=== PATIENT | male | born 1970 | race African-American/Black ===

== ENCOUNTER 2018-04-11 18:59 | Inpatient (IN) | payer SELFPAY ==
[~2018-04-11] VITALS: Ht 185.4 cm; Wt 58.7 kg
[2018-04-11] MEDS ORDERED: IV NORMAL SALINE 1,000ML 1,000 ML IV ONE ×2 (20:00)
[2018-04-11] MEDS ORDERED: ONDANSETRON PF 4 MG/2 ML VIAL. IV ONE (20:00)
[2018-04-11 20:03] LABS: BASO % 1 % (0-3); EOS % 0 % (0-3); HEMATOCRIT 49.5 % (39.0-53.0); HEMOGLOBIN 16.7 g/dL (13.0-17.5); LYMPH # 1.4 x10^3/uL (1.0-4.8); LYMPH % 19 % (24-48); MEAN CORPUSCULAR HEMOGLOBIN 34 pg (25-35); MEAN CORPUSCULAR HGB CONC 34 g/dL (31-37); MEAN CORPUSCULAR VOLUME 101 fL (79-100); MONO # 0.5 x10^3/uL (0.0-1.1); MONO % 7 % (0-9); NEUT # 5.5 x10^3uL (1.8-7.7); NEUT % 73 % (31-73); PLATELET COUNT 238 x10^3/uL (140-400); RED CELL DISTRIBUTION WIDTH 13.1 % (11.5-14.5); WHITE BLOOD COUNT 7.6 x10^3/uL (4.0-11.0)
--- NOTE | 2018-04-11 20:12 | EKG ---
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
[2018-04-11 20:13] LABS: ALBUMIN 4.4 g/dL (3.4-5.0); ALBUMIN/GLOBULIN RATIO 1.7 (1.0-1.7); CALCIUM 10.2 mg/dL (8.5-10.1); CREATININE 1.1 mg/dL (0.7-1.3); GFR 86.8; MAGNESIUM 2.3 mg/dL (1.8-2.4); POTASSIUM 4.6 mmol/L (3.5-5.1); TOTAL BILIRUBIN 0.2 mg/dL (0.2-1.0)
[2018-04-11] MEDS ORDERED: INSULIN REGULAR 100 UNIT/ML 3ML VIAL. SQ ONE (20:30)
[2018-04-11 21:11] LABS: BILIRUBIN,URINE NEG (NEG); CLARITY,URINE CLEAR; COLOR,URINE YELLOW; GLUCOSE,URINE >=1000 mg/dL (NEG)
[2018-04-11 21:12] LABS: BACTERIA,URINE 0 /HPF (0-FEW); NITRITE,URINE NEG (NEG); RBC,URINE 0 /HPF (0-2); UROBILINOGEN,URINE 0.2 mg/dL (0.2 mg/dL); WBC,URINE OCC /HPF (0-4)
--- NOTE | 2018-04-11 22:23 | PHYS DOC ---
Past History Past Medical History: Diabetes Past Surgical History: No Surgical History Alcohol Use: Heavy Drug Use: None Adult General Chief Complaint Chief Complaint: BLOOD SUGAR PROBLEM HPI HPI 47-year-old male with past medical history of diabetes presents with three-day history of generalized weakness and dizziness. Patient does report increased urinary frequency as well as nausea and vomiting. Patient reports he recently relocated back to [place]. Patient reports he has been taking his metformin but is concerned that his blood sugars are higher than it should be. Denies fever or chills. Denies trauma. Reports currently does not have a PCP. Reports history of ETOH abuse. Denies history of seizures. Review of Systems Review of Systems Constitutional: Denies fever or chills [] Eyes: Denies change in visual acuity, redness, or eye pain [] HENT: Denies nasal congestion or sore throat [] Respiratory: Denies cough or shortness of breath [] Cardiovascular: Denies chest pain or palpitations GI: Denies abdominal pain or diarrhea; Reports nausea and vomiting : Denies dysuria or hematuria [] Musculoskeletal: Denies back pain or joint pain [] Integument: Denies rash or skin lesions [] Neurologic: Denies headache or sensory changes; Reports dizziness and generalized weakness [] Endocrine: Reports polyuria or polydipsia [] Complete systems were reviewed and found to be within normal limits, except as documented in this note. Current Medications Current Medications Current Medications Medications (Trade) Dose Ordered Sig/Sakshi Start Time Stop Time Status Last Admin Dose Admin Insulin Human Regular (HumuLIN R VIAL) 6 unit 1X ONCE 04/11/18 20:30 04/11/18 20:36 DC 04/11/18 21:05 6 UNIT Ondansetron HCl (Zofran) 4 mg 1X ONCE 04/11/18 20:00 04/11/18 20:01 DC 04/11/18 20:27 4 MG Sodium Chloride 1,000 ml @ 1,000 mls/hr 1X ONCE 04/11/18 20:00 04/11/18 20:59 DC 04/11/18 20:00 1,000 MLS/HR Allergies Allergies Allergies Coded Allergies Type Severity Reaction Last Updated Verified Penicillins Allergy Intermediate 04/11/18 Yes Physical Exam Physical Exam Constitutional: Well developed, well nourished, no acute distress, non-toxic appearance. [] HENT: Normocephalic, atraumatic, oropharynx dry Eyes: PERRL, EOMI, conjunctiva normal, no discharge, no nystagmus noted Neck: Normal range of motion, no tenderness, supple, no stridor. [] Cardiovascular: Heart rate regular rhythm, no murmur [] Lungs & Thorax: Bilateral breath sounds clear to auscultation [] Abdomen: Soft, no tenderness Skin: Warm, dry, no erythema, no rash. [] Extremities: No tenderness, ROM intact, no edema. [] Neurologic: Alert and oriented X 3, normal motor function, normal sensory function, no focal deficits noted. [] Psychologic: Affect normal, judgement normal, mood normal. [] Current Patient Data Vital Signs Vital Signs Date Time Temp Pulse Resp B/P (MAP) Pulse Ox O2 Delivery O2 Flow Rate FiO2 04/11/18 20:57 63 18 129/76 (93) 98 Room Air 04/11/18 19:32 98.0 Lab Results Laboratory Tests Test 04/11/18 19:07 04/11/18 19:27 04/11/18 20:05 04/11/18 20:24 Glucose (Fingerstick) 539 mg/dL (70-99) *H White Blood Count 7.6 x10^3/uL (4.0-11.0) Red Blood Count 4.90 x10^6/uL (4.30-5.70) Hemoglobin 16.7 g/dL (13.0-17.5) Hematocrit 49.5 % (39.0-53.0) Mean Corpuscular Volume 101 fL (79-100) H Mean Corpuscular Hemoglobin 34 pg (25-35) Mean Corpuscular Hemoglobin Concent 34 g/dL (31-37) Red Cell Distribution Width 13.1 % (11.5-14.5) Platelet Count 238 x10^3/uL (140-400) Neutrophils (%) (Auto) 73 % (31-73) Lymphocytes (%) (Auto) 19 % (24-48) L Monocytes (%) (Auto) 7 % (0-9) Eosinophils (%) (Auto) 0 % (0-3) Basophils (%) (Auto) 1 % (0-3) Neutrophils # (Auto) 5.5 x10^3uL (1.8-7.7) Lymphocytes # (Auto) 1.4 x10^3/uL (1.0-4.8) Monocytes # (Auto) 0.5 x10^3/uL (0.0-1.1) Eosinophils # (Auto) 0.0 x10^3/uL (0.0-0.7) Basophils # (Auto) 0.0 x10^3/uL (0.0-0.2) Sodium Level 132 mmol/L (136-145) L Potassium Level 4.6 mmol/L (3.5-5.1) Chloride Level 92 mmol/L (98-107) L Carbon Dioxide Level 20 mmol/L (21-32) L Anion Gap 20 (6-14) H Blood Urea Nitrogen 24 mg/dL (8-26) Creatinine 1.1 mg/dL (0.7-1.3) Estimated GFR (Cockcroft-Gault) 86.8 BUN/Creatinine Ratio 22 (6-20) H Glucose Level 552 mg/dL (70-99) *H Calcium Level 10.2 mg/dL (8.5-10.1) H Magnesium Level 2.3 mg/dL (1.8-2.4) Total Bilirubin 0.2 mg/dL (0.2-1.0) Aspartate Amino Transferase (AST) 15 U/L (15-37) Alanine Aminotransferase (ALT) 35 U/L (16-63) Alkaline Phosphatase 74 U/L (46-116) Creatine Kinase 145 U/L (39-308) Creatine Kinase MB (Mass) 1.2 ng/mL (0.0-3.6) Creatine Kinase MB Relative Index 0.8 % (0-4) Troponin I Quantitative < 0.017 ng/mL (0-0.055) Total Protein 7.0 g/dL (6.4-8.2) Albumin 4.4 g/dL (3.4-5.0) Albumin/Globulin Ratio 1.7 (1.0-1.7) Acetone Level Neg (NEG) Ethyl Alcohol Level 29 mg/dL (0-10) H Urine Collection Type Void Urine Color Yellow Urine Clarity Clear Urine pH 5.0 Urine Specific [place] <=1.005 Urine Protein Neg (NEG-TRACE) Urine Glucose (UA) >=1000 mg/dL (NEG) Urine Ketones (Stick) 40 mg/dL (NEG) Urine Blood Neg (NEG) Urine Nitrite Neg (NEG) Urine Bilirubin Neg (NEG) Urine Urobilinogen Dipstick 0.2 mg/dL (0.2 mg/dL) Urine Leukocyte Esterase Neg (NEG) Urine RBC 0 /HPF (0-2) Urine WBC Occ /HPF (0-4) Urine Squamous Epithelial Cells None /LPF Urine Bacteria 0 /HPF (0-FEW) Test 04/11/18 22:11 Glucose (Fingerstick) 329 mg/dL (70-99) H EKG EKG @2007: NSR at 66bpm, LAFB, NO ST elevation Radiology/Procedures Radiology/Procedures [] Course & Med Decision Making Course & Med Decision Making Pertinent Labs and Imaging studies reviewed. (See chart for details) Patient presents with generalized malaise and weakness with associated nausea/ vomiting and polyuria and polydipsia. NIHSS 0. Hx of ETOH abuse. Concern for elevated blood sugar. Accucheck elevated. IVF hydration given. SQ insulin given. Labs obtained and posted to chart. Acetone negative. UA without signs of infection. Symptomatic treatment provided. Given lack of PCP follow-up and likelihood of need for adjustment of diabetic medication, patient requiring admission for further evaluation and treatment. Discussed with Dr. Mcneil (hospitalist) who is in agreement with admission. Discussed findings and plan with patient, who acknowledges understanding and agreement. Dragon Disclaimer Dragon Disclaimer This electronic medical record was generated, in whole or in part, using a voice recognition dictation system. Departure Departure: Impression: Primary Impression: Weakness Additional Impressions: Hyperglycemia Nausea Alcohol abuse Disposition: ADMITTED INPATIENT Admitting Physician: Micki Mcneil Condition: STABLE Referrals: PCP,TAD (PCP) NIHSS - ED NIH Stroke Scale: NIH Stroke Scale Response (Comments) Value Level of Consciousness: 0 Alert/Responsive 0 LOC Questions: 0 Answers both correctly 0 LOC Commands: 0 Performs both tasks 0 Best Gaze: 0 Normal 0 Visual: 0 No visual loss 0 Facial Palsy: 0 Normal, symmetrical 0 Motor - Left Arm 0 No drift 0 Motor - Right Arm 0 No drift 0 Motor - Left Leg 0 No drift 0 Motor: Right Leg 0 No drift 0 Limb Ataxia: 0 Absent 0 Sensory: 0 No loss 0 Best Language: 0 Normal 0 Dysathria: 0 Normal 0 Extinction and Inattention: 0 Normal 0 Total 0 Problem Qualifiers ROYCE NAYLOR DO Apr 11, 2018 22:23
[2018-04-11] MEDS ORDERED: ONDANSETRON PF 4 MG/2 ML VIAL. IV PRN (22:30)
[2018-04-11] MEDS ORDERED: DEXTROSE 50% 25 GM / 50ML DISP.SYRIN. IV PRN (22:30)
[2018-04-11] MEDS ORDERED: ACETAMINOPHEN 325 MG TABLET PO PRN (22:30)
[2018-04-11 23:10] VITALS: BP 128/90
[2018-04-12 06:10] VITALS: BP 117/78
[2018-04-12] MEDS ORDERED: MVI, ADULT NO.4 WITH VIT K 10 ML, FOLIC ACID INJ 1 MG, THIAMINE INJ 100 MG in IV NORMAL... IV ONE ×4 (07:30)
[2018-04-12 07:45] VITALS: BP 112/83
[2018-04-12] MEDS: INSULIN LISPRO 300 UNITS/3 ML INSULN.PEN. SQ SCH ×3 (08:29→17:23)
[2018-04-12] MEDS ORDERED: METF10007 PO (08:54)
[2018-04-12 10:38] VITALS: BP 111/72
[2018-04-12 15:10] VITALS: BP 125/86
[2018-04-12] MEDS: IV NORMAL SALINE 1,000ML 1,000 ML IV SCH (15:13)
--- NOTE | 2018-04-12 15:43 | HP ---
ADMIT DATE: 04/11/2018 HISTORY OF PRESENT ILLNESS: The patient is a 47-year-old -Green[place]ic male patient, who came to the Emergency Room, complaining of weakness, dizziness, and increased urinary frequency as well as nausea and vomiting. He also complained of polydipsia. He was recently relocated back to [place]. He was in [place]. The patient reports that he has been taking his metformin, but he was not taking it on a regular basis. He also drinks 50 ounces of alcohol every other day. He has not had any primary care physician and he said that his glucometer was lost when he moved recently. PAST MEDICAL HISTORY: Significant for type 2 diabetes mellitus, diagnosed about 2-1/2 years ago. He was on glipizide and metformin. He did also complain of blurring of vision, but denied any history of cataracts. Denied any tingling or numbness of his hands or feet. Denied any hypertension or hyperlipidemia. He has lost about 40 pounds, which 20 pounds over the last month. PAST SURGICAL HISTORY: Significant for right hand infection with growth of methicillin-resistant Staphylococcus aureus, treated with antibiotic about 12 or 13 years ago. He has also tooth extraction. ALLERGIES: He has no known drug allergies. MEDICATIONS: HE IS ALLERGIC TO PENICILLIN, although he said he takes amoxicillin without any problem. He is on metformin 1000 mg twice a day. He was also on glipizide before, but he stopped taking it on his own. FAMILY HISTORY: His mother is still alive and has hypertension, hypothyroidism. Father at the age of 68 because of lung cancer. His brother is younger and has had hypertension. SOCIAL HISTORY: He is single, however, has a son. He smokes half a pack a day, drinks 50 ounces of alcohol every other day. Does not use any drugs. 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 REVIEW OF SYSTEMS: He did complain of blurring of vision and has astigmatism, but denied any glaucoma or macular degeneration. Denied any earache, tinnitus or sensorineural deafness. Denied any nosebleeds, stuffy nose or postnasal drip. Denied any sore throat, sore tongue, toothache, hoarseness of voice or difficulty swallowing. Did complain of some nausea and vomiting, but denied any diarrhea or constipation. Denied any hematemesis, melena or hematochezia. Denied any dysuria, frequency or hematuria. Denied any chest pain, shortness of breath, orthopnea, paroxysmal nocturnal dyspnea. Denied any cough, phlegm or hemoptysis. Denied any chills, rigors or fever. Did complain of dizziness and lightheadedness. Mother stated he also complained of weight loss of almost 40 pounds of which 20 pounds weight loss over the last month. He was practically not taking any medication for his diabetes. PHYSICAL EXAMINATION: GENERAL: On arrival to the Emergency Room, he looked pale, cachectic, but no jaundice, cyanosis, or thyromegaly. No jugular venous distension. No lower limb edema. VITAL SIGNS: His heart rate was 64, blood pressure was 129/76, temperature was 98, respiratory rate was 18 and oxygen saturation was 98%. HEAD, EYES, EARS, NOSE AND THROAT: Showed normocephalic and atraumatic. NECK: Supple. HEART: Showed normal first and second heart sounds with no gallop, rub or murmur. CHEST: Clear to auscultation. No crepitation or rhonchi. ABDOMEN: Distended, soft, and nontender. No guarding or rigidity. No organomegaly. Hernial orifice intact. Bowel sounds normal. NEUROLOGIC: He was awake, alert, responding appropriately. Cranial nerves intact. EXTREMITIES: He moves extremities without difficulty. LABORATORY DATA: On admission showed a white cell count of 7600, hemoglobin 16.7, hematocrit 49.5, MCV 101, and platelet count of 238,000. His chemistry showed serum sodium of 132, potassium 4.6, chloride 102, bicarbonate 20, anion gap of 20, BUN 24, creatinine 1.1, estimated GFR was 86 mL per minute. His glucose was 552. His calcium was 10.2 and magnesium was 2.3. Total bilirubin, AST, ALT, alkaline phosphatase were normal. His total protein was 7, albumin was 4.4. His urinalysis showed the urine was yellow, clear with a pH of 5, specific gravity 1.005. The urine was negative for protein with a large amount of glucose, moderate amount of ketones, negative for blood, nitrite and leukocyte esterase. There are no rbc's, no wbc's or no bacteria. His toxic screen was positive for blood alcohol level was 29 mg/dL. IMPRESSION: In summary, this is a 47-year-old -Greenlandic male patient with poorly controlled type 2 diabetes with severe hyperglycemia, polyuria and polydipsia, weight loss about 40 pounds. He has mild dilutional hyponatremia. He has also his hemoglobin and hematocrit was elevated at 16.7 and 49.5, likely due to hemoconcentration. He has also alcoholism and nicotine addiction. PLAN: My plan is to restart him on his Glucophage. 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 FATEMEH MORFIN MD DR: WOODY/kori JOB#: [id number] / [id number]
[2018-04-12] MEDS: metFORMIN XR 500 MG TAB.ER.24H PO SCH (17:16)
[2018-04-12] MEDS: GLIMEPIRIDE 2 MG TABLET PO SCH (17:17)
[2018-04-12 18:49] VITALS: BP 118/75
[2018-04-12] MEDS ORDERED: GLIMEPIRIDE 2 MG TABLET PO SCH (21:00)
[2018-04-12] MEDS ORDERED: metFORMIN XR 500 MG TAB.ER.24H PO SCH (21:00)
[2018-04-12 23:14] VITALS: BP 128/85
[2018-04-13] MEDS: IV NORMAL SALINE 1,000ML 1,000 ML IV SCH ×2 (03:03→11:00)
[2018-04-13 04:27] VITALS: BP 125/85
[2018-04-13 06:05] LABS: CALCIUM 7.8 mg/dL (8.5-10.1); CREATININE 0.7 mg/dL (0.7-1.3); GFR 146.3; POTASSIUM 3.8 mmol/L (3.5-5.1)
[2018-04-13] MEDS: metFORMIN XR 500 MG TAB.ER.24H PO SCH (08:16)
[2018-04-13] MEDS: GLIMEPIRIDE 2 MG TABLET PO SCH (08:17)
[2018-04-13] MEDS: INSULIN LISPRO 300 UNITS/3 ML INSULN.PEN. SQ SCH ×2 (08:24→12:18)
[2018-04-13 11:09] VITALS: BP 116/75
[2018-04-13] MEDS ORDERED: GLIM4TAB PO (15:47)
[2018-04-13 21:12] LABS: HEMOGLOBIN A1C 12.6 % (4.8-5.6)
--- NOTE | 2018-04-13 23:25 | DS ---
DATE OF DISCHARGE: 04/13/2018 HISTORY OF PRESENT ILLNESS: The patient is a 47-year-old -Croatian male patient, who came to the Emergency Room complaining of markedly elevated blood sugar. He also complained of polydipsia, polyuria, polyphagia and weight loss of about 40 pounds. He moved recently from [place] to be with his family here. He was taking metformin, but apparently he has not been taking it on a regular basis. He also drinks 5 cans of beer every other day according to him and smokes heavily. He does have a glucometer that he lost when he moved recently. In any case, his blood sugar was extremely high. When he arrived to our facility, it was 552. He has also dilutional hyponatremia because of hyperglycemia and we did start him back on his Glucophage as well as Amaryl 2 mg twice a day. His blood sugar came down to 200. We have had a lengthy discussion regarding his treatment and he takes the medication religiously. He was seen by our dietitian and he was given literature to read and to know what to drink and what time to drink and he will be discharged home on metformin with the recommendation to arrange for a primary care physician to follow him. PHYSICAL EXAMINATION: GENERAL: When I saw him this afternoon, he looked well and was clearly in no apparent respiratory distress. No pallor, jaundice, cyanosis, or thyromegaly. No jugular venous distension. No lower limb edema. VITAL SIGNS: His heart rate was 63, blood pressure was 116/75, temperature was 98.5, respiratory rate 20 and oxygen saturation was 97%. HEAD, EYES, EARS, NOSE AND THROAT: Showed normocephalic, atraumatic. NECK: Supple. HEART: Showed normal first and second sounds. No gallop, rub or murmur. CHEST: Clear to auscultation. No crepitation or rhonchi. ABDOMEN: Scaphoid, soft, nontender. NEUROLOGIC: He is awake, alert, responding appropriately. Cranial nerves intact. He moves all his extremities without difficulty. He ambulates without assistance or assistive devices. His intake over the last 24 hours was 2300, output was incompletely recorded. LABORATORY DATA: As of this morning showed a serum sodium 135, potassium 3.8, chloride 103, bicarbonate 25, anion gap of 7, BUN 12, creatinine 0.7. Estimated GFR was 146 mL per minute. His glucose was 273. Calcium was 7.8. His TSH was 1.214. DISCHARGE MEDICATIONS: He was discharged home to continue on metformin extended release 1000 mg twice a day and glimepiride 4 mg once a day. FINAL DISCHARGE DIAGNOSES: 1. Poorly controlled type 2 diabetes mellitus. 2. Polydipsia, polyuria, polyphagia, weight loss are all manifestation of poorly controlled diabetes. He has also alcoholism and nicotine dependence, so he was counseled about quitting alcohol and quit smoking. FATEMEH MORFIN MD DR: WOODY/kori JOB#: [id number] / [id number]
== END 2018-04-13 16:04 | disposition home or self-care (01) | DRG 638 ==
LOC: ER 18:59 → 1 SOUTH 22:20
PROVIDERS: ADMIT Internal Medicine; ATTEND Internal Medicine
DX: E11.65 Type 2 diabetes mellitus with hyperglycemia (principal); E87.1 Hypo-osmolality and hyponatremia; F10.20 Alcohol dependence, uncomplicated; E03.9 Hypothyroidism, unspecified; F17.210 Nicotine dependence, cigarettes, uncomplicated; Z79.84 Long term (current) use of oral hypoglycemic drugs; Z80.1 Family history of malignant neoplasm of trachea, bronchus and lung; Z88.0 Allergy status to penicillin; Z82.49 Family history of ischemic heart disease and other diseases of the circulatory system; Z79.899 Other long term (current) drug therapy
CPT/HCPCS: 36415; 80048; 80053; 81001; 82010; 82553; 82947; 83036; 83735; 83930; 84443; 84484; 85025; 87641; 93005; 96372; 96374; G0480; J1815; J2405; 99285-25; J7030

== ENCOUNTER 2018-05-24 17:14 | Inpatient (IN) | payer SELFPAY ==
[~2018-05-24] VITALS: Ht 185.4 cm; Wt 56.7 kg
[~2018-05-24 17:14] MED LIST: GLIM4TAB PO; METF10007 PO
[2018-05-24] MEDS ORDERED: IV NORMAL SALINE 1,000ML 1,000 ML IV ONE ×3 (18:00→19:30)
[2018-05-24 18:08] LABS: BASO % 0 % (0-3); EOS % 0 % (0-3); HEMATOCRIT 49.7 % (39.0-53.0); HEMOGLOBIN 16.4 g/dL (13.0-17.5); LYMPH % 11 % (24-48); MEAN CORPUSCULAR HEMOGLOBIN 34 pg (25-35); MEAN CORPUSCULAR HGB CONC 33 g/dL (31-37); MEAN CORPUSCULAR VOLUME 104 fL (79-100); MONO # 0.5 x10^3/uL (0.0-1.1); MONO % 5 % (0-9); NEUT # 7.7 x10^3uL (1.8-7.7); NEUT % 83 % (31-73); PLATELET COUNT 279 x10^3/uL (140-400); RED BLOOD COUNT 4.79 x10^6/uL (4.30-5.70); RED CELL DISTRIBUTION WIDTH 13.2 % (11.5-14.5); WHITE BLOOD COUNT 9.3 x10^3/uL (4.0-11.0)
--- NOTE | 2018-05-24 18:14 | EKG ---
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
[2018-05-24] MEDS ORDERED: ONDANSETRON PF 4 MG/2 ML VIAL. IV ONE (18:15)
[2018-05-24 18:31] LABS: ALBUMIN 3.7 g/dL (3.4-5.0); ALBUMIN/GLOBULIN RATIO 1.2 (1.0-1.7); CALCIUM 9.3 mg/dL (8.5-10.1); CREATININE 1.4 mg/dL (0.7-1.3); GFR 65.4; POTASSIUM 5.9 mmol/L (3.5-5.1); TOTAL BILIRUBIN 0.5 mg/dL (0.2-1.0); TOTAL PROTEIN 6.8 g/dL (6.4-8.2)
[2018-05-24] MEDS ORDERED: INSULIN LISPRO 300 UNITS/3 ML INSULN.PEN. SQ ONE (19:30)
[2018-05-24] MEDS ORDERED: ONDANSETRON PF 4 MG/2 ML VIAL. IV PRN (19:45)
[2018-05-24] MEDS ORDERED: INSULIN REGULAR VIAL 150 UNIT in 0.9 % SODIUM CHLORIDE 150ML 150 ML IV PRN (19:45)
[2018-05-24 19:47] LABS: BACTERIA,URINE 0 /HPF (0-FEW); BILIRUBIN,URINE NEG (NEG); CLARITY,URINE CLEAR; COLOR,URINE STRAW; GLUCOSE,URINE >=1000 mg/dL (NEG); NITRITE,URINE NEG (NEG); RBC,URINE 0 /HPF (0-2); UROBILINOGEN,URINE 0.2 mg/dL (0.2 mg/dL); WBC,URINE RARE /HPF (0-4)
[2018-05-24 20:45] VITALS: BP 104/79
[2018-05-24 22:00] VITALS: BP 102/80
[2018-05-24] MEDS: IV NORMAL SALINE 1,000ML 1,000 ML IV SCH (22:07)
--- NOTE | 2018-05-24 22:19 | ED.ADGEN ---
Past History Past Medical History: Diabetes Past Surgical History: No Surgical History Alcohol Use: Heavy Drug Use: None Adult General Chief Complaint Chief Complaint Nausea and vomiting, abdominal pain HPI HPI Patient is a 48-year-old -Ang[place] male with history of adult onset non-- insulin dependent diabetes who presents with intermittent abdominal pain with nausea vomiting diarrhea for the past month with increased daily nausea and vomiting for the past 3 days. Patient reports dizziness lightheadedness, polyuria polydipsia and approximately 25 pound weight loss over the past 3 months. Patient is currently taking 1000 mg of metformin twice daily. He is not on insulin. He does not have a primary care physician and does not seek routine healthcare other than occasional ER visit for medication referral. Denies recent illness. Denies chest pain, palpitations, shortness of breath. This report feeling dizzy and lightheaded. No fever chills, sweats. Epigastric pain after vomiting. No hematemesis coffee-ground emesis. No other acute symptoms or complaints. Initial blood sugars greater than 600 [] Review of Systems Review of Systems ROS as per hpi All other systems were reviewed and found to be within normal limits, except as documented in this note. Current Medications Current Medications Current Medications Medications (Trade) Dose Ordered Sig/Sakshi Start Time Stop Time Status Last Admin Dose Admin Ondansetron HCl (Zofran) 4 mg 1X ONCE 05/24/18 18:15 05/24/18 18:16 DC 05/24/18 18:04 4 MG Sodium Chloride 1,000 ml @ 1,000 mls/hr 1X ONCE 05/24/18 18:15 05/24/18 19:14 DC 05/24/18 18:17 1,000 MLS/HR Allergies Allergies Allergies Coded Allergies Type Severity Reaction Last Updated Verified Penicillins Allergy Intermediate 04/11/18 Yes I S O L A T I O N *CONTACT* Allergy Unknown 04/12/18 Yes Physical Exam Physical Exam Constitutional: Well developed, well nourished, no acute distress, non-toxic appearance. [] HENT: Normocephalic, atraumatic, bilateral external ears normal, oropharynx moist, no oral exudates, nose normal. [] Eyes: PERRLA, EOMI, conjunctiva normal. [] Neck: Normal range of motion, no tenderness. [] Cardiovascular:Heart rate regular rhythm, no murmur [] Lungs & Thorax: Bilateral breath sounds clear to auscultation. [] Abdomen: Bowel sounds normal, soft, no tenderness. [] Skin: Warm, dry. [] Back: No tenderness. [] Extremities: No tenderness, no edema. [] Neurologic: Alert and oriented X 3, normal motor function, normal sensory function, no focal deficits noted. [] Psychologic: Affect normal, judgement normal, mood normal. [] Current Patient Data Vital Signs Vital Signs Date Time Temp Pulse Resp B/P (MAP) Pulse Ox O2 Delivery O2 Flow Rate FiO2 05/24/18 18:20 80 18 118/70 (86) 99 Room Air 05/24/18 17:25 98.2 Lab Results Laboratory Tests Test 05/24/18 17:50 05/24/18 17:51 White Blood Count 9.3 x10^3/uL (4.0-11.0) Red Blood Count 4.79 x10^6/uL (4.30-5.70) Hemoglobin 16.4 g/dL (13.0-17.5) Hematocrit 49.7 % (39.0-53.0) Mean Corpuscular Volume 104 fL (79-100) H Mean Corpuscular Hemoglobin 34 pg (25-35) Mean Corpuscular Hemoglobin Concent 33 g/dL (31-37) Red Cell Distribution Width 13.2 % (11.5-14.5) Platelet Count 279 x10^3/uL (140-400) Neutrophils (%) (Auto) 83 % (31-73) H Lymphocytes (%) (Auto) 11 % (24-48) L Monocytes (%) (Auto) 5 % (0-9) Eosinophils (%) (Auto) 0 % (0-3) Basophils (%) (Auto) 0 % (0-3) Neutrophils # (Auto) 7.7 x10^3uL (1.8-7.7) Lymphocytes # (Auto) 1.0 x10^3/uL (1.0-4.8) Monocytes # (Auto) 0.5 x10^3/uL (0.0-1.1) Eosinophils # (Auto) 0.0 x10^3/uL (0.0-0.7) Basophils # (Auto) 0.0 x10^3/uL (0.0-0.2) Sodium Level 116 mmol/L (136-145) *L Potassium Level 5.9 mmol/L (3.5-5.1) H Chloride Level 79 mmol/L (98-107) L Carbon Dioxide Level 20 mmol/L (21-32) L Anion Gap 17 (6-14) H Blood Urea Nitrogen 28 mg/dL (8-26) H Creatinine 1.4 mg/dL (0.7-1.3) H Estimated GFR (Cockcroft-Gault) 65.4 BUN/Creatinine Ratio 20 (6-20) Glucose Level 846 mg/dL (70-99) *H Calcium Level 9.3 mg/dL (8.5-10.1) Total Bilirubin 0.5 mg/dL (0.2-1.0) Aspartate Amino Transferase (AST) 16 U/L (15-37) Alanine Aminotransferase (ALT) 35 U/L (16-63) Alkaline Phosphatase 84 U/L (46-116) Total Protein 6.8 g/dL (6.4-8.2) Albumin 3.7 g/dL (3.4-5.0) Albumin/Globulin Ratio 1.2 (1.0-1.7) Lipase 536 U/L (73-393) H Ethyl Alcohol Level < 10 mg/dL (0-10) Troponin I Quantitative < 0.017 ng/mL (0-0.055) EKG EKG [] Radiology/Procedures Radiology/Procedures [EKG: Reviewed Chest x-ray: No acute cardiopulmonary disease on initial ED review.] Course & Med Decision Making Course & Med Decision Making Pertinent Labs and Imaging studies reviewed. (See chart for details) [Blood sugar greater than 800, potassium 5.9. Patient given repeat fluid bolus and subcutaneous insulin in the emergency department with improvement in blood sugar. Acetone positive, ABG not suggestive of DKA. Patient was placed on insulin drip and admitted to the ICU. Dr. Mcneil to admit. Courtesy bridge orders provided.] Final Impression Final Impression [1. Hyperglycemia 2. Hyperkalemia ] Dragon Disclaimer Dragon Disclaimer This electronic medical record was generated, in whole or in part, using a voice recognition dictation system. ROVERTO CHARLTON DO May 24, 2018 22:19
[2018-05-24 22:20] LABS: BGAS PH 7.33 (7.35-7.46)
[2018-05-24 23:00] VITALS: BP 93/67
[2018-05-24 23:59] VITALS: BP 94/58
[2018-05-25] VITALS (9 sets, daily range): BP systolic 89–108; BP diastolic 58–73
--- NOTE | 2018-05-25 00:46 | RAD ---
AP portable chest radiograph 05/24/2018 Clinical History: Chest pain. An AP erect portable digital radiograph of the chest was obtained. No previous studies are available for comparison. The cardiac silhouette is normal in size. Atherosclerotic calcification of the thoracic aorta is seen. The thoracic aorta is minimally tortuous. No acute pulmonary infiltrate is noted. No pneumothorax or pleural effusion is seen. The osseous structures are grossly intact. IMPRESSION: No acute abnormality is seen. Electronically signed by: George Ann MD (05/25/2018 12:43 AM) [facility]
[2018-05-25] MEDS: IV NORMAL SALINE 1,000ML 1,000 ML IV SCH ×4 (03:31→15:38)
[2018-05-25 06:42] LABS: HEMATOCRIT 35.5 % (39.0-53.0); HEMOGLOBIN 12.3 g/dL (13.0-17.5); RED BLOOD COUNT 3.56 x10^6/uL (4.30-5.70); RED CELL DISTRIBUTION WIDTH 12.8 % (11.5-14.5); WHITE BLOOD COUNT 7.1 x10^3/uL (4.0-11.0)
[2018-05-25 06:53] LABS: CALCIUM 7.2 mg/dL (8.5-10.1); CREATININE 0.7 mg/dL (0.7-1.3); GFR 145.6; POTASSIUM 3.5 mmol/L (3.5-5.1)
[2018-05-25] MEDS: metFORMIN 500 MG TABLET PO SCH ×2 (08:54→18:36)
[2018-05-25] MEDS ORDERED: GLIMEPIRIDE 2 MG TABLET PO SCH (09:00)
--- NOTE | 2018-05-25 18:25 | SSS ---
ADMIT DATE: 05/24/2018 HISTORY OF PRESENT ILLNESS: The patient is a 48-year-old male patient who came to the Emergency Room complaining of nausea, vomiting, and abdominal pain. He was diagnosed recently with adult-onset type 2 diabetes. He has been having nausea, vomiting, and diarrhea for the last month that increased daily, but has increased and worsened over the last 3 days. The patient reported dizziness, lightheadedness, polyuria, polydipsia, and approximately 25-pound weight loss over the last 3 months. On his last admission, we started him on metformin twice a day as well as Amaryl 4 mg. He was supposed to get a primary care physician and follow with the [facility], but he did not do that and he basically came in with markedly elevated blood sugar of 846 with severe dilutional hyponatremia of 116, although his anion gap was only 17. He has also slightly deranged kidney function. He was mildly acidotic with pH of 7.33, pCO2 of 37, and bicarbonate of 19. His urinalysis showed large amount of glucose and ketones, was basically treated with IV fluid and admitted to the ICU on insulin drip and he did actually very well on arrival. PHYSICAL EXAMINATION: VITAL SIGNS: His heart rate was 89, blood pressure was 118/70, temperature of 98.2, respiratory rate was 18, and oxygen saturation was 99%. HEAD, EYES, EARS, NOSE, THROAT: Showed normocephalic, atraumatic. NECK: Supple. HEART: Showed normal first and second heart sounds with no gallop, rub, or murmur. CHEST: Clear to auscultation. No crepitation or rhonchi. ABDOMEN: Distended, soft, nontender. No guarding or rigidity. No organomegaly. Hernial orifice intact. Bowel sounds normal. NEUROLOGIC: He was awake, alert, responding appropriately. Cranial nerves intact. EXTREMITIES: He moved extremities without difficulty, ambulates without assistance or assistive devices. LABORATORY DATA: On arrival showed white cell count of 9300, hemoglobin 16, hematocrit 49, MCV 104, and platelet count 279,000 with normal manual differential. His chemistry showed serum sodium 116, potassium 5.9, chloride 79, bicarbonate 20, anion gap of 17, BUN 28, creatinine 1.4, estimated GFR was 65 mL per minute. His glucose was 846, calcium was 9.3. Total bilirubin, AST, ALT, alkaline phosphatase were normal. Total protein was 6.8, albumin 3.7. Serum lipase was 536. His blood gases showed a pH of 7.33 and a pCO2 of 37, pO2 of 85, bicarbonate 19, and oxygen saturation was 96% on FiO2 of 21%. His urinalysis showed the urine was straw colored, clear with pH of 5, specific gravity 1.005. The urine protein was negative. There was large amount of glucose; large amount of ketones; negative for blood, nitrite, and leukocyte esterase. There are no RBCs, no WBCs, and no bacteria. His toxic screen was essentially negative. He was treated with IV fluid and insulin drip. His lab work has normalized by the time I saw him in the afternoon. His serum sodium is up to 154, potassium of 3.5, chloride 101, bicarbonate 27, anion gap of 6, BUN 15, creatinine 0.7, estimated GFR was 145 mL per minute, his glucose 135, and calcium was 7.2. His white cell count was 7000, hemoglobin 12, hematocrit 36, MCV 100, and platelet count 231,000. ASSESSMENT AND PLAN: The patient will be discharged to continue his current medication with clear instruction that he has to go himself to submit an application to [facility] so that he can start on insulin and is also to look for a primary care physician to adjust his insulin and other diabetic medications. FINAL DISCHARGE DIAGNOSES: Nonketotic hyperosmolar hyperglycemia; type 2 diabetes; dilutional hyponatremia; acute kidney injury, resolved. FATEMEH MORFIN MD DR: WOODY/kori JOB#: [id number] / [id number]
[2018-05-26 00:09] LABS: HEMOGLOBIN A1C >15.5 % (4.8-5.6)
== END 2018-05-25 18:50 | disposition home or self-care (01) | DRG 682 ==
LOC: ER 17:14 → ICU 18:30
PROVIDERS: ADMIT Internal Medicine; ATTEND Internal Medicine
DX: N17.9 Acute kidney failure, unspecified (principal); E11.00 Type 2 diabetes mellitus with hyperosmolarity without nonketotic hyperglycemic-hyperosmolar coma (NKHHC); E87.1 Hypo-osmolality and hyponatremia; E87.2 Acidosis; Z79.4 Long term (current) use of insulin; E87.5 Hyperkalemia; Z79.84 Long term (current) use of oral hypoglycemic drugs; Z79.899 Other long term (current) drug therapy; Z88.0 Allergy status to penicillin
CPT/HCPCS: 36415; 36600; 71045; 80048; 80053; 81001; 82010; 82803; 82947; 83036; 83690; 84100; 84484; 85025; 85027; 87641; 93005; 99406; G0480; J1815; J2405; J7030

== ENCOUNTER 2020-01-18 09:33 | Emergency (ER) | payer MEDICAID ==
[~2020-01-18] VITALS: Ht 182.9 cm; Wt 60.0 kg
[2020-01-18 09:47] VITALS: BP 143/91
--- NOTE | 2020-01-18 09:58 | PHYS DOC ---
Past History Past Medical History: Cancer, Diabetes Past Surgical History: Other Additional Past Surgical Histo: RIGHT KIDNEY REMOVAL, RIGHT HAND SURGERY Alcohol Use: Rarely Drug Use: None General Adult EDM: Chief Complaint: FOOT INJURY PAIN HPI: HPI: 49-year-old male presents with concern for foreign bodies in his left foot. He believes he might have been there for 3 weeks. He was working in the garden got into some [employer] thorns. He had shoes on, but he thinks some of this thorn stuck down into the shoes and then pushed into his skin. There are 2 areas where he feels like there is still something under the skin. It causes him some discomfort. Denies fever chills. Review of Systems: Review of Systems: Constitutional: Denies fever or chills Eyes: Denies change in visual acuity HENT: Denies nasal congestion or sore throat Respiratory: Denies cough or shortness of breath Cardiovascular: Denies chest pain or edema GI: Denies abdominal pain, nausea, vomiting, bloody stools or diarrhea : Denies dysuria Musculoskeletal: Left foot pain Integument: Denies rash Neurologic: Denies headache, focal weakness or sensory changes Endocrine: Denies polyuria or polydipsia Lymphatic: Denies swollen glands Psychiatric: Denies depression or anxiety Heart Score: Risk Factors: Risk Factors: DM, Current or recent (<one month) smoker, HTN, HLP, family history of CAD, obesity. Risk Scores: Score 0 - 3: 2.5% MACE over next 6 weeks - Discharge Home Score 4 - 6: 20.3% MACE over next 6 weeks - Admit for Clinical Observation Score 7 - 10: 72.7% MACE over next 6 weeks - Early Invasive Strategies Allergies: Allergies: Allergies Coded Allergies Type Severity Reaction Last Updated Verified Penicillins Allergy Intermediate 04/11/18 Yes I S O L A T I O N *CONTACT* Allergy Unknown 04/12/18 Yes Physical Exam: PE: Constitutional: Well developed, well nourished, no acute distress, non-toxic appearance. [] HENT: Normocephalic, atraumatic, bilateral external ears normal, oropharynx moist, no oral exudates, nose normal. [] Eyes: PERRLA, EOMI, conjunctiva normal, no discharge. [] Neck: Normal range of motion, no tenderness, supple, no stridor. [] Cardiovascular:Heart rate regular rhythm, no murmur [] Lungs & Thorax: Bilateral breath sounds clear to auscultation [] Abdomen: Bowel sounds normal, soft, no tenderness, no masses, no pulsatile masses. [] Skin: 2 small superficial areas on the anterior surface of the left foot that could be over shallow foreign body [] Back: No tenderness, no CVA tenderness. [] Extremities: No tenderness, no cyanosis, no clubbing, ROM intact, no edema. [] Neurologic: Alert and oriented X 3, normal motor function, normal sensory function, no focal deficits noted. [] Psychologic: Affect normal, judgement normal, mood normal. [] Current Patient Data: Vital Signs: Vital Signs Date Time Temp Pulse Resp B/P (MAP) Pulse Ox O2 Delivery O2 Flow Rate FiO2 01/18/20 09:47 98.2 95 18 143/91 (108) 96 Room Air EKG: EKG: [] Radiology/Procedures: Radiology/Procedures: [] Impressions: AP and lateral views of the left foot. INDICATION: Possible foreign body. FINDINGS: No fracture subluxation dislocation. No radiopaque foreign body is seen in the foot. Midfoot is well aligned. No significant degenerative change. Electronically signed by: Bibiana Zuluaga MD (01/18/2020 10:08 AM) [id number] DICTATED AND SIGNED BY: BIBIANA ZULUAGA MD DATE: 01/18/20 1008 CC: ROVERTO PHELAN DO; PCP,NO ~ Course & Med Decision Making: Course & Med Decision Making Pertinent Labs and Imaging studies reviewed. (See chart for details) There is no obvious foreign body of the left foot. There are 2 very small areas of superficial skin that are palpable where the patient seemed to be com plaining. Not sure if these are just small calcifications or if they are very small splinters under the skin. There is no surrounding erythema or warmth. There are not obvious foreign bodies. I am reluctant to go digging in the plantar surface of the foot, especially since he is diabetic. I believe the best thing to do is to leave this as is. I do not believe the small areas could be leading to the numbness that he is discussing. This may be development of neuropathy due to his diabetes. He is stable for discharge at this time. [] Dragon Disclaimer: Dragon Disclaimer: This electronic medical record was generated, in whole or in part, using a voice recognition dictation system. Departure Departure: Impression: Primary Impression: Left foot pain Disposition: 01 HOME/RESIDENCE PRIOR TO ADM Condition: STABLE Referrals: PCP,NO (PCP) Patient Instructions: Diabetic Neuropathy Justification of Admission: Justification of Admission: Justification of Admission Dx: N/A ROVERTO PHELAN DO Jan 18, 2020 09:58
--- NOTE | 2020-01-18 10:11 | RAD ---
AP and lateral views of the left foot. INDICATION: Possible foreign body. FINDINGS: No fracture subluxation dislocation. No radiopaque foreign body is seen in the foot. Midfoot is well aligned. No significant degenerative change. Electronically signed by: Landon Sloan MD (01/18/2020 10:08 AM) [id number]
== END 2020-01-18 10:32 | disposition home or self-care (01) ==
LOC: ER 09:33
DX: M79.672 Pain in left foot (principal); E11.9 Type 2 diabetes mellitus without complications; Z88.0 Allergy status to penicillin; Z88.8 Allergy status to other drugs, medicaments and biological substances
CPT/HCPCS: 73620; 99283

== ENCOUNTER 2020-03-28 07:00 | Inpatient (IN) | payer MEDICAID ==
[2020-03-28] VITALS (10 sets, daily range): BP systolic 136–159; BP diastolic 50–111
[~2020-03-28] VITALS: Ht 182.9 cm; Wt 56.1 kg
[2020-03-28 07:44] LABS: BGAS PH 7.15 (7.35-7.46)
[2020-03-28] MEDS ORDERED: INSULIN REGULAR 100 UNIT/ML 3ML VIAL. IV ONE (07:45)
[2020-03-28] MEDS ORDERED: IV NORMAL SALINE 1,000ML 1,000 ML IV ONE ×3 (07:45→09:15)
--- NOTE | 2020-03-28 08:08 | EKG ---
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
[2020-03-28 08:36] LABS: BASO # 0.1 x10^3/uL (0.0-0.2); BASO % 1 % (0-3); EOS % 0 % (0-3); HEMATOCRIT 52.5 % (39.0-53.0); LYMPH # 1.9 x10^3/uL (1.0-4.8); LYMPH % 10 % (24-48); MEAN CORPUSCULAR HEMOGLOBIN 35 pg (25-35); MEAN CORPUSCULAR HGB CONC 31 g/dL (31-37); MEAN CORPUSCULAR VOLUME 114 fL (79-100); MONO # 0.7 x10^3/uL (0.0-1.1); MONO % 4 % (0-9); NEUT # 16.2 x10^3uL (1.8-7.7); NEUT % 85 % (31-73); PLATELET COUNT 316 x10^3/uL (140-400); RED BLOOD COUNT 4.61 x10^6/uL (4.30-5.70); RED CELL DISTRIBUTION WIDTH 15.2 % (11.5-14.5)
--- NOTE | 2020-03-28 08:44 | RAD ---
Examination: CHEST AP ONLY History: Reason: soa / Comparison: None. Findings: AP portable upright frontal view of the chest was obtained. The cardiomediastinal silhouette is normal. Left midthoracic to lower thoracic level nodular density is present measuring up to 0.86 cm diameter. This may represent nipple shadow. No infiltrate. There is no pneumothorax. No pleural effusion is appreciated. No acute bone abnormality. IMPRESSION: No infiltrates. Nodular density in the left mid to lower thoracic level. Further evaluation with chest x-ray exam with nipple markers. Alternatively, CT may be performed. Electronically signed by: Kulwinder Brewer MD (03/28/2020 8:41 AM) [id number]
[2020-03-28 09:04] LABS: BACTERIA,URINE 0 /HPF (0-FEW); BILIRUBIN,URINE NEG (NEG); CLARITY,URINE CLEAR; COLOR,URINE YELLOW; GLUCOSE,URINE 500 mg/dL (NEG); NITRITE,URINE NEG (NEG); RBC,URINE 0 /HPF (0-2); UROBILINOGEN,URINE 0.2 mg/dL (0.2 mg/dL); WBC,URINE OCC /HPF (0-4)
[2020-03-28 09:05] LABS: SQUAMOUS EPITHELIAL CELL,UR OCC /LPF
[2020-03-28 09:09] LABS: CALCIUM 10.4 mg/dL (8.5-10.1); CREATININE 2.5 mg/dL (0.7-1.3); GFR 33.4; MAGNESIUM 2.6 mg/dL (1.8-2.4); TOTAL BILIRUBIN 0.7 mg/dL (0.2-1.0); TOTAL PROTEIN 7.9 g/dL (6.4-8.2)
[2020-03-28] MEDS ORDERED: IV NORMAL SALINE 1,000ML 1,000 ML IV SCH (09:16)
[2020-03-28 09:18] LABS: % LYMPHS 15 % (24-48); % MONOS 6 % (0-10); % SEGS 79 % (35-66)
[2020-03-28 09:19] LABS: PLT ESTIMATE ADEQUATE (ADEQUATE)
[2020-03-28] MEDS: ONDANSETRON PF 4 MG/2 ML VIAL. IVP PRN ×3 (09:28→20:48)
[2020-03-28] MEDS ORDERED: INSULIN REGULAR VIAL 100 UNIT in IV NORMAL SALINE 100ML 100 ML IV ONE (09:30)
--- NOTE | 2020-03-28 10:15 | NUR ---
The patient, JAMEY LOPEZ, 49 y/o, M admitted by MOISES YUAN MD, was given written information regarding hospital policies, unit procedures and contact persons. Valuables were checked and left with pt. Pt brought by EMS and ED staff to room 113. pt is ICU status. A&Ox4, insulin gtt not started by ED. Will start on floor. pt complains of stomach pain/cramping and is states he is very cold. Pt actively vomiting on arrival to unit. Orders given previously by DR YUAN and will follow as ordered (see previous note). ERASMO Nolen RN
--- NOTE | 2020-03-28 10:30 | NUR ---
PER DR YUAN, STARTING INSULIN GTT AT 10UNIT/HR, CMP Q2HRS, AND NS @100ML/HR. DEEPALI RAMÍREZ
--- NOTE | 2020-03-28 11:19 | NUR ---
per glucostabilizer, starting dose for BS of 1085 is 20.5unit/hr. Awaiting for stat BMP for current glucose
[2020-03-28] MEDS: MORPHINE SULFATE 4 MG/ML DISP.SYRIN. IV PRN ×4 (11:33→20:20)
[2020-03-28 11:40] LABS: CALCIUM 7.8 mg/dL (8.5-10.1); CREATININE 1.9 mg/dL (0.7-1.3); GFR 45.8; POTASSIUM 3.6 mmol/L (3.5-5.1)
--- NOTE | 2020-03-28 11:42 | HP ---
ADMIT DATE: 03/28/2020 ADMISSION HISTORY AND PHYSICAL ATTENDING PHYSICIAN: Dr. Yuan. CHIEF COMPLAINT: Nausea and vomiting. HISTORY OF PRESENT ILLNESS: The patient is a 49-year-old gentleman, type 2 diabetic who has been sick for the last 4 days. He was brought to the ER. He is profoundly dehydrated. He had a blood sugar on admission of 1085. He has a carbon dioxide of 6, anion gap is 40. He is admitted with DKA. He has had vomiting. He has had some regular insulin and fluids several liters in the unit. He is still quite symptomatic. Blood pressure had been adequate at 143 mmHg, pulse is 95. He is afebrile. He is a smoker, but his oxygen saturations are 100%. He is hyperventilating a bit to blow off his carbon dioxide. The patient is admitted then for DKA. He has not had DKA in the past. PAST MEDICAL HISTORY: Significant for type 2 diabetes. He is a smoker, details are very sketchy. He is disabled and not working. MEDICATIONS: His medicines are reviewed. Prior to coming to the hospital, he was not on insulin. He was taking metformin and glimepiride. ALLERGIES: HE HAS ALLERGIES TO PENICILLIN AND CONTRAST DYES. SOCIAL HISTORY: He is a smoker. No alcohol use. FAMILY HISTORY: Father in the 70s of lung cancer. Mom is still alive. REVIEW OF SYSTEMS: Significant for the nausea, vomiting 4 days. No fevers. No COVID exposure. He does not drink any significant alcohol. All other systems reviewed and turned to be negative. PHYSICAL EXAMINATION: GENERAL: When I saw him, this is a pleasant, thin gentleman. INITIAL VITAL SIGNS: Showed a blood pressure of 145/109, pulse 100 and regular, temperature 98.0 degrees Fahrenheit. HEENT: Head is without trauma. Pupils are reactive. Sclerae nonicteric. Oropharynx clear. NECK: Supple, no bruits identified. LUNGS: Shallow respirations. CARDIOVASCULAR: Showed regular heart tones. No gallops. Peripheral pulses are palpable and full. ABDOMEN: Minimal guarding, soft. Hypoactive bowel sounds. No masses palpated. EXTREMITIES: Showed no cyanosis or edema. NEUROLOGIC FINDINGS: Focally intact. SKIN: Cool. LABORATORY STUDIES: As noted. Admission blood sugar was 1085 mg/dL. The carbon dioxide was 6, anion gap is 40, potassium 6.0 due to acidosis. Has pseudohyponatremia with a sodium of 124 mEq, which is normal for correction. Her lipase was 598. Hemoglobin 16.0 grams with a white count of 19,000. Chest x-ray showed a nodular density in the left thoracic level. No infiltrates identified. ASSESSMENT: 1. A 49-year-old gentleman with nausea and vomiting with associated diabetic ketoacidosis. 2. Profound dehydration. 3. Significant nausea and abdominal pain. PLAN: 1. Admit to the inpatient unit. 2. Telemetry monitoring. 3. IV hydration. 4. Insulin drip for now. 5. Keep n.p.o. 6. Pain relief. 7. Nausea control. MOISES YUAN MD DR: LARISA/kori JOB#: [id number] / [id number]
--- NOTE | 2020-03-28 12:38 | PHYS DOC ---
Past History Past Medical History: Cancer, Diabetes Past Surgical History: Other Additional Past Surgical Histo: RIGHT KIDNEY REMOVAL, RIGHT HAND SURGERY Alcohol Use: None Drug Use: None General Adult EDM: Chief Complaint: SHORTNESS OF BREATH HPI: HPI: Patient is a 49-year-old male who presented to ER with 4-day history of nausea, vomiting, feeling weak and tired. Patient also complained of trouble breathing, nonproductive cough. Patient did feel weak and dehydrated, history of diabetes, patient is a very poor historian. He denies any abdominal pain. He feels thirsty all the time he wants some water. Patient denies being exposed to anybody who tested positive for COVID-19. Patient denies any diarrhea. Review of Systems: Review of Systems: Constitutional: Denies fever or chills Eyes: Denies change in visual acuity HENT: Denies nasal congestion or sore throat Respiratory: Positive for cough and trouble breathing. Cardiovascular: Denies chest pain or edema GI: Denies abdominal pain, positive for nausea vomiting, no diarrhea. : Denies dysuria Musculoskeletal: Denies back pain or joint pain Integument: Denies rash Neurologic: Denies headache, focal weakness or sensory changes Endocrine: Positive for polyuria or polydipsia Lymphatic: Denies swollen glands Psychiatric: Denies depression or anxiety Heart Score: Risk Factors: Risk Factors: DM, Current or recent (<one month) smoker, HTN, HLP, family history of CAD, obesity. Risk Scores: Score 0 - 3: 2.5% MACE over next 6 weeks - Discharge Home Score 4 - 6: 20.3% MACE over next 6 weeks - Admit for Clinical Observation Score 7 - 10: 72.7% MACE over next 6 weeks - Early Invasive Strategies Current Medications: Current Meds: Laboratory Tests Test 03/28/20 07:35 03/28/20 08:00 03/28/20 08:30 03/28/20 11:20 Blood Gas pH 7.15 Blood Gas PCO2 8 mmHg Blood Gas PO2 148 mmHg Blood Gas HCO3 3 mmol/L Arterial Bld O2 Saturation (Calc) 99 % FiO2 21 % White Blood Count 19.0 x10^3/uL Red Blood Count 4.61 x10^6/uL Hemoglobin 16.0 g/dL Hematocrit 52.5 % Mean Corpuscular Volume 114 fL Mean Corpuscular Hemoglobin 35 pg Mean Corpuscular Hemoglobin Concent 31 g/dL Red Cell Distribution Width 15.2 % Platelet Count 316 x10^3/uL Neutrophils (%) (Auto) 85 % Lymphocytes (%) (Auto) 10 % Monocytes (%) (Auto) 4 % Eosinophils (%) (Auto) 0 % Basophils (%) (Auto) 1 % Neutrophils # (Auto) 16.2 x10^3uL Lymphocytes # (Auto) 1.9 x10^3/uL Monocytes # (Auto) 0.7 x10^3/uL Eosinophils # (Auto) 0.0 x10^3/uL Basophils # (Auto) 0.1 x10^3/uL Segmented Neutrophils % 79 % Lymphocytes % 15 % Monocytes % 6 % Platelet Estimate Adequate Macrocytosis Mod Prothrombin Time 10.0 SEC Prothromb Time International Ratio 1.0 Activated Partial Thromboplast Time 23 SEC Sodium Level 124 mmol/L 132 mmol/L Potassium Level 6.0 mmol/L 3.6 mmol/L Chloride Level 78 mmol/L 93 mmol/L Carbon Dioxide Level 6 mmol/L 7 mmol/L Anion Gap 40 32 Blood Urea Nitrogen 36 mg/dL 32 mg/dL Creatinine 2.5 mg/dL 1.9 mg/dL Estimated GFR (Cockcroft-Gault) 33.4 45.8 BUN/Creatinine Ratio 14 Glucose Level 1085 mg/dL 789 mg/dL Calcium Level 10.4 mg/dL 7.8 mg/dL Magnesium Level 2.6 mg/dL Total Bilirubin 0.7 mg/dL Aspartate Amino Transf (AST/SGOT) 95 U/L Alanine Aminotransferase (ALT/SGPT) 216 U/L Alkaline Phosphatase 166 U/L Troponin I Quantitative < 0.017 ng/mL CE-Obn-N-Type Natriuretic Peptide 86 pg/mL Total Protein 7.9 g/dL Albumin 4.0 g/dL Albumin/Globulin Ratio 1.0 Lipase 598 U/L Acetone Level Sm pos Urine Collection Type Unknown Urine Color Yellow Urine Clarity Clear Urine pH 5.0 Urine Specific Cardale 1.015 Urine Protein Neg Urine Glucose (UA) 500 mg/dL Urine Ketones (Stick) >=160 mg/dL Urine Blood Neg Urine Nitrite Neg Urine Bilirubin Neg Urine Urobilinogen Dipstick 0.2 mg/dL Urine Leukocyte Esterase Neg Urine RBC 0 /HPF Urine WBC Occ /HPF Urine Squamous Epithelial Cells Occ /LPF Urine Bacteria 0 /HPF Test 10/2/20 13:17 03/28/20 13:50 03/28/20 14:24 03/28/20 16:35 Glucose (Fingerstick) 485 mg/dL 265 mg/dL 125 mg/dL Sodium Level 138 mmol/L Potassium Level 2.9 mmol/L Chloride Level 101 mmol/L Carbon Dioxide Level 8 mmol/L Anion Gap 29 Blood Urea Nitrogen 27 mg/dL Creatinine 1.8 mg/dL Estimated GFR (Cockcroft-Gault) 48.8 Glucose Level 399 mg/dL Calcium Level 7.6 mg/dL Current Medications Medications (Trade) Dose Ordered Sig/Sakshi Route PRN Reason Start Time Stop Time Status Last Admin Dose Admin Sodium Chloride 1,000 ml @ 1,000 mls/hr 1X ONCE IV 03/28/20 07:45 03/28/20 08:44 DC 03/28/20 07:52 Insulin Human Regular (HumuLIN R VIAL) 10 unit 1X ONCE IV 03/28/20 07:45 03/28/20 07:46 DC 03/28/20 07:53 Sodium Chloride 1,000 ml @ 1,000 mls/hr 1X ONCE IV 03/28/20 07:45 03/28/20 08:44 DC 03/28/20 07:52 Sodium Chloride 1,000 ml @ 1,000 mls/hr 1X ONCE IV 03/28/20 09:15 03/28/20 10:14 DC 03/28/20 10:38 Sodium Chloride 1,000 ml @ 100 mls/hr Q10H IV 03/28/20 09:16 03/28/20 14:31 DC 03/28/20 12:31 Current Medications Medications (Trade) Dose Ordered Sig/Sakshi Start Time Stop Time Status Last Admin Dose Admin Insulin Human Regular (HumuLIN R VIAL) 10 unit 1X ONCE 03/28/20 07:45 03/28/20 07:46 DC 03/28/20 07:53 10 UNIT Sodium Chloride 1,000 ml @ 100 mls/hr Q10H 03/28/20 09:16 03/29/20 09:15 03/28/20 12:31 100 MLS/HR Allergies: Allergies: Allergies Coded Allergies Type Severity Reaction Last Updated Verified Penicillins Allergy Intermediate 04/11/18 Yes I S O L A T I O N *CONTACT* Allergy Unknown 04/12/18 Yes Physical Exam: PE: Constitutional: Well developed, appeared dehydrated, mild acute distress, non- toxic appearance. [] HENT: Normocephalic, atraumatic, bilateral external ears normal, oropharynx is very dried, no oral exudates, nose normal. [] Eyes: PERRLA, EOMI, conjunctiva normal, no discharge. [] Neck: Normal range of motion, no tenderness, supple, no stridor. [] Cardiovascular:Heart rate regular rhythm, no murmur [] Lungs & Thorax: Bilateral breath sounds clear to auscultation [] Abdomen: Bowel sounds normal, soft, no tenderness, no masses, no pulsatile masses. [] Skin: Warm, dry, no erythema, no rash. [] Back: No tenderness, no CVA tenderness. [] Extremities: No tenderness, no cyanosis, no clubbing, ROM intact, no edema. [] Neurologic: Alert and oriented X 3, normal motor function, normal sensory function, no focal deficits noted. [] Psychologic: Affect normal, judgement normal, mood normal. [] Current Patient Data: Labs: Laboratory Tests Test 03/28/20 07:35 03/28/20 08:00 03/28/20 08:30 03/28/20 11:20 Blood pH 7.15 (7.35-7.46) *L Blood Gas PCO2 8 mmHg (35-46) *L Blood Gas PO2 148 mmHg (80-100) H Blood Gas HCO3 3 mmol/L (21-28) L Arterial Bld O2 Saturation (Calc) 99 % (92-99) FiO2 21 % White Blood Count 19.0 x10^3/uL (4.0-11.0) H Red Blood Count 4.61 x10^6/uL (4.30-5.70) Hemoglobin 16.0 g/dL (13.0-17.5) Hematocrit 52.5 % (39.0-53.0) Mean Corpuscular Volume 114 fL (79-100) H Mean Corpuscular Hemoglobin 35 pg (25-35) Mean Corpuscular Hemoglobin Concent 31 g/dL (31-37) Red Cell Distribution Width 15.2 % (11.5-14.5) H Platelet Count 316 x10^3/uL (140-400) Neutrophils (%) (Auto) 85 % (31-73) H Lymphocytes (%) (Auto) 10 % (24-48) L Monocytes (%) (Auto) 4 % (0-9) Eosinophils (%) (Auto) 0 % (0-3) Basophils (%) (Auto) 1 % (0-3) Neutrophils # (Auto) 16.2 x10^3uL (1.8-7.7) H Lymphocytes # (Auto) 1.9 x10^3/uL (1.0-4.8) Monocytes # (Auto) 0.7 x10^3/uL (0.0-1.1) Eosinophils # (Auto) 0.0 x10^3/uL (0.0-0.7) Basophils # (Auto) 0.1 x10^3/uL (0.0-0.2) Segmented Neutrophils % 79 % (35-66) H Lymphocytes % 15 % (24-48) L Monocytes % 6 % (0-10) Platelet Estimate Adequate (ADEQUATE) Macrocytosis Mod Prothrombin Time 10.0 SEC (9.4-11.4) Prothrombin Time INR 1.0 (0.9-1.1) Activated Partial Thromboplast Time 23 SEC (23-33) Sodium Level 124 mmol/L (136-145) L 132 mmol/L (136-145) L Potassium Level 6.0 mmol/L (3.5-5.1) H 3.6 mmol/L (3.5-5.1) # Chloride Level 78 mmol/L (98-107) L 93 mmol/L (98-107) L Carbon Dioxide Level 6 mmol/L (21-32) *L 7 mmol/L (21-32) *L Anion Gap 40 (6-14) H 32 (6-14) H Blood Urea Nitrogen 36 mg/dL (8-26) H 32 mg/dL (8-26) H Creatinine 2.5 mg/dL (0.7-1.3) H 1.9 mg/dL (0.7-1.3) H Estimated GFR (Cockcroft-Gault) 33.4 45.8 BUN/Creatinine Ratio 14 (6-20) Glucose Level 1085 mg/dL (70-99) *H 789 mg/dL (70-99) *H Calcium Level 10.4 mg/dL (8.5-10.1) H 7.8 mg/dL (8.5-10.1) #L Magnesium Level 2.6 mg/dL (1.8-2.4) H Total Bilirubin 0.7 mg/dL (0.2-1.0) Aspartate Amino Transferase (AST) 95 U/L (15-37) H Alanine Aminotransferase (ALT) 216 U/L (16-63) H Alkaline Phosphatase 166 U/L (46-116) H Troponin I Quantitative < 0.017 ng/mL (0-0.055) BO-Esq-X-Type Natriuretic Peptide 86 pg/mL (0-124) Total Protein 7.9 g/dL (6.4-8.2) Albumin 4.0 g/dL (3.4-5.0) Albumin/Globulin Ratio 1.0 (1.0-1.7) Lipase 598 U/L (73-393) H Acetone Level Sm pos (NEG) Urine Collection Type Unknown Urine Color Yellow Urine Clarity Clear Urine pH 5.0 Urine Specific Cardale 1.015 Urine Protein Neg (NEG-TRACE) Urine Glucose (UA) 500 mg/dL (NEG) Urine Ketones (Stick) >=160 mg/dL (NEG) Urine Blood Neg (NEG) Urine Nitrite Neg (NEG) Urine Bilirubin Neg (NEG) Urine Urobilinogen Dipstick 0.2 mg/dL (0.2 mg/dL) Urine Leukocyte Esterase Neg (NEG) Urine RBC 0 /HPF (0-2) Urine WBC Occ /HPF (0-4) Urine Squamous Epithelial Cells Occ /LPF Urine Bacteria 0 /HPF (0-FEW) Vital Signs: Vital Signs Date Time Temp Pulse Resp B/P (MAP) Pulse Ox O2 Delivery O2 Flow Rate FiO2 03/28/20 11:33 18 100 Room Air 03/28/20 10:38 95 143/50 (81) 03/28/20 07:37 98.0 EKG: EKG: EKG was done at 716, heart rate 97 bpm, sinus rhythm, no ST segment elevation. Radiology/Procedures: Radiology/Procedures: [][address] [address] IMAGING REPORT Signed PATIENT: JAMEY LOPEZ ACCOUNT: [id number] : 1970 LOCATION: ER AGE: 49 SEX: M EXAM STATUS: REG ER ORD. PHYSICIAN: LUMA THOMAS DO REASON: soa PROCEDURE: CHEST AP ONLY Examination: CHEST AP ONLY History: Reason: soa / Comparison: None. Findings: AP portable upright frontal view of the chest was obtained. The cardiomediastinal silhouette is normal. Left midthoracic to lower thoracic level nodular density is present measuring up to 0.86 cm diameter. This may represent nipple shadow. No infiltrate. There is no pneumothorax. No pleural effusion is appreciated. No acute bone abnormality. IMPRESSION: No infiltrates. Nodular density in the left mid to lower thoracic level. Further evaluation with chest x-ray exam with nipple markers. Alternatively, CT may be performed. Electronically signed by: Kulwinder Rey MD (03/28/2020 8:41 AM) [id number] DICTATED AND SIGNED BY: KULWINDER REY MD DATE: 03/28/20 0841 CC: PCP,TAD; LUMA THOMAS DO ~ Course & Med Decision Making: Course & Med Decision Making Pertinent Labs and Imaging studies reviewed. (See chart for details) Patient is a 49-year-old male with history of diabetes presented to ER with nausea vomiting, feeling weak and dehydrated. Patient was found to have hyperglycemic, in DKA. Patient was given IV fluid, IV insulin in ER. Discussed with Dr. YUAN who agrees TO admit the patient. Critical care time was [45 ] minutes exclusive of procedures. Dragon Disclaimer: Dragon Disclaimer: This electronic medical record was generated, in whole or in part, using a voice recognition dictation system. Departure Departure: Impression: Primary Impression: DKA (diabetic ketoacidoses) Additional Impression: Dehydration Disposition: ADMITTED INPATIENT Admitting Physician: Edouard Yuan Condition: IMPROVED Referrals: PCPTAD (PCP) LUMA THOMAS DO Mar 28, 2020 12:38
--- NOTE | 2020-03-28 13:40 | HP ---
ADMIT DATE: 03/28/2020 ADDENDUM The patient was unable to give much history when I first saw him. Later in the morning, he told us that he has had a previous nephrectomy. He has one kidney. 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 The etiology is still unclear. In any event, I have monitored his chemistries, his creatinine on admission was 2.5 mg/dL. I do not know what his baseline is. Repeated, it was down to 1.9 mg percent. 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 MOISES YAUN MD DR: LARISA/kori JOB#: [id number] / [id number]
[2020-03-28 14:09] LABS: CALCIUM 7.6 mg/dL (8.5-10.1); CREATININE 1.8 mg/dL (0.7-1.3); GFR 48.8
[2020-03-28 14:14] LABS: POTASSIUM 2.9 mmol/L (3.5-5.1)
--- NOTE | 2020-03-28 14:43 | NUR ---
NSG NOTE; CRITICAL RESULTS OF K+ 2.[address] YUAN CALLED AND ORDERED TO ADJUST INSULIN DRIP RATE TO 6 UNITS/HR AND DC FOLLOWING GLUCOSTABILIZER. FURTHER NEW ORDERS INCLUDE CHANGING BMP TO Q12H STARTING AT 1800, ACCU CHECKS Q2 HR, AND NS W/ 40 KCL AT 100 ML/HR. DR YUAN STATED THAT HE WILL ADJUST ORDERS NEEDED AND FOR US NOT TO FOLLOW THE DKA PROTOCOL.
[2020-03-28] MEDS: POTASSIUM CL 40MEQ IN 0.9%NACL 1,000 ML IV SCH (15:40)
--- NOTE | 2020-03-28 16:05 | NUR ---
PT MOVED TO ICU FROM [facility]
[2020-03-28] MEDS ORDERED: DEXTROSE 50% 25 GM / 50ML DISP.SYRIN. IV PRN (16:45)
--- NOTE | 2020-03-28 16:45 | NUR ---
CALLED DR YUAN REGARDING BLOOD SUGAR OF 125. INFORMED HIM OF PATIENT STATING "MY BLOOD SUGAR NORMALLY RUNS IN THE 500'S BUT I CAN BRING IT DOWN TO THE 200'S AND BE OKAY BUT UNDER 200 I FEEL TOO WEAK".. DR YUAN ORDERED FOLLOWS: D/C INSULIN DRIP, SLIDING SCALE INSULIN AT THE HIGHEST LEVEL, Q4 ACCUCHECKS, AND ADVANCE DIET TO CLEAR LIQUID IF TOLERATED AND ANTICIPATING BMP DRAW AT 1800 AND IN THE MORNING. ORDERS RECEIVED. WILL CONTINUE TO MONITOR. DEEPALI RAMÍREZ
[2020-03-28] MEDS ORDERED: INSULIN LISPRO 300 UNITS/3 ML VIAL. SQ SCH (17:00)
[2020-03-28] MEDS ORDERED: GABA-586 PO (17:02)
[2020-03-28] MEDS ORDERED: INSU100V38 SQ (17:03)
[2020-03-28 20:12] LABS: CALCIUM 9.1 mg/dL (8.5-10.1); CREATININE 1.5 mg/dL (0.7-1.3); GFR 60.2; POTASSIUM 5.1 mmol/L (3.5-5.1)
[2020-03-28] MEDS: INSULIN LISPRO 300 UNITS/3 ML VIAL. SQ SCH (20:50)
[2020-03-29] VITALS (22 sets, daily range): BP systolic 106–163; BP diastolic 63–113
[2020-03-29] MEDS: POTASSIUM CL 40MEQ IN 0.9%NACL 1,000 ML IV SCH ×3 (00:04→19:39)
[2020-03-29] MEDS: MORPHINE SULFATE 4 MG/ML DISP.SYRIN. IV PRN ×3 (03:09→21:48)
[2020-03-29] MEDS: INSULIN LISPRO 300 UNITS/3 ML VIAL. SQ SCH (06:29)
[2020-03-29] MEDS ORDERED: LIDO:MAALOX:BENADRYL 1:1:1 180 ML BOTTLE. PO ONE (09:15)
[2020-03-29] MEDS ORDERED: DEXTROSE 50% 25 GM / 50ML DISP.SYRIN. IV PRN ×2 (09:30→17:30)
[2020-03-29] MEDS ORDERED: INSULIN REGULAR VIAL 100 UNIT in IV NORMAL SALINE 100ML 100 ML IV PRN (09:30)
[2020-03-29] MEDS: PANTOPRAZOLE IV 40 MG VIAL. IVP SCH (09:30)
[2020-03-29] MEDS: INSULIN REGULAR VIAL 100 UNIT in IV NORMAL SALINE 100ML 100 ML IV PRN (10:02)
[2020-03-29 10:16] LABS: CALCIUM 8.7 mg/dL (8.5-10.1); CREATININE 1.9 mg/dL (0.7-1.3); GFR 45.8; POTASSIUM 4.9 mmol/L (3.5-5.1)
--- NOTE | 2020-03-29 12:16 | PN ---
DATE: 03/29/2020 ATTENDING PHYSICIAN: Dr. Yuan SUBJECTIVE: Nausea and vomiting has improved. He is not hungry, but he still has indigestion symptoms. He is much more alert and rehydrated. Yesterday, he was very obtunded. OBJECTIVE FINDINGS: VITAL SIGNS: Blood pressure today is 135/86 mmHg, pulse 89 and regular. He is afebrile and oxygen saturation 97% on room air. HEENT: Head is without trauma. Pupils are reactive. Sclerae nonicteric. Oropharynx is clear. NECK: Supple, no bruits. LUNGS: Otherwise clear. CARDIOVASCULAR: Showed regular heart tones. No gallops. Peripheral pulses are palpable and full. ABDOMEN: Soft, scaphoid, nontender. Hypoactive bowel sounds. EXTREMITIES: Without edema. NEUROLOGIC: Focally intact. Speech fluent. PERTINENT LABORATORY STUDIES: Potassium is 5.1 mEq per day. The sodium has been corrected up to 136 mEq. Creatinine is improved down to 1.5 mg percent on unilateral kidney. The carbon dioxide is 18 with an anion gap of 19. ASSESSMENT: 1. A 49-year-old gentleman, diabetic with diabetic ketoacidosis. 2. Uncontrolled blood sugar. 3. Dehydration. 4. Acute on chronic renal failure. The patient has unilateral kidney. PLAN: 1. He will still need an insulin drip for the next 24 hours to bring his sugars down and is slowly creeping up. I had a reading this morning of 459. 2. Clear liquid diet. 3. Add proton pump inhibitor. 4. Continue IV hydration. 5. Serial chemistries twice a day. 6. Tomorrow, we will advance his diet and switch him to q.i.d. Accu-Cheks, preferably with 3 shots of regular before each meal and a shot of Lantus at bedtime. MOISES YUAN MD DR: LARISA/kori JOB#: [id number] / [id number]
[2020-03-29] MEDS: CARVEDILOL 12.5 MG TABLET PO SCH ×2 (12:30→17:00)
[2020-03-29] MEDS: GABAPENTIN 300 MG CAPSULE. PO SCH ×2 (12:30→19:39)
[2020-03-29] MEDS: LIDO:MAALOX:BENADRYL 1:1:1 180 ML BOTTLE. PO PRN (19:40)
[2020-03-29 21:57] LABS: CALCIUM 8.8 mg/dL (8.5-10.1); CREATININE 1.4 mg/dL (0.7-1.3); GFR 65.2; POTASSIUM 4.7 mmol/L (3.5-5.1)
[2020-03-30] VITALS (11 sets, daily range): BP systolic 101–136; BP diastolic 68–95
[2020-03-30] MEDS: LIDO:MAALOX:BENADRYL 1:1:1 180 ML BOTTLE. PO PRN ×3 (04:00→21:15)
[2020-03-30] MEDS: POTASSIUM CL 40MEQ IN 0.9%NACL 1,000 ML IV SCH (06:11)
--- NOTE | 2020-03-30 06:31 | NUR ---
Pt slept well throughout the night, required one dose of Morphine per EMAR, and required 2 doses of GI cocktail. Pt resting comfortably.
[2020-03-30 07:40] LABS: CALCIUM 8.8 mg/dL (8.5-10.1); CREATININE 1.4 mg/dL (0.7-1.3); GFR 65.2; POTASSIUM 5.5 mmol/L (3.5-5.1)
[2020-03-30] MEDS ORDERED: INSULIN LISPRO 300 UNITS/3 ML VIAL. SQ SCH (08:00)
[2020-03-30] MEDS: PANTOPRAZOLE IV 40 MG VIAL. IVP SCH (08:47)
[2020-03-30] MEDS: CARVEDILOL 12.5 MG TABLET PO SCH ×2 (08:47→17:56)
[2020-03-30] MEDS: GABAPENTIN 300 MG CAPSULE. PO SCH ×2 (08:48→21:15)
[2020-03-30] MEDS: INSULIN REGULAR VIAL 100 UNIT in IV NORMAL SALINE 100ML 100 ML IV PRN (08:48)
--- NOTE | 2020-03-30 09:36 | PN ---
DATE: 03/30/2020 ATTENDING PHYSICIAN: Dr. Yuan. SUBJECTIVE: The patient is feeling better. He is still thirsty, abdominal symptoms have improved. LABORATORY DATA: Sugars came down last night, but spike back up to 500 mg/dL this morning. His sodium is 126 mEq/L, potassium 5.5 mEq, creatinine is down to 1.4 mg/dL. OBJECTIVE: VITAL SIGNS: Blood pressure is 134/95, pulse rate is improved down to 73. He is afebrile. Oxygen saturation 99% on room air. HEENT: Head is without trauma. Pupils are reactive. Oropharynx clear. NECK: Supple. LUNGS: Clear. CARDIOVASCULAR: Showed regular heart tones. ABDOMEN: Soft, no guarding. Bowel sounds are hypoactive. EXTREMITIES: Showed no edema or cyanosis. NEUROLOGIC: Focally intact. SKIN: Warm and dry. LABORATORY STUDIES: As noted. ASSESSMENT: 1. A 49-year-old gentleman with uncontrolled diabetes. 2. Diabetic ketoacidosis, improved. 3. Pseudohyponatremia. 4. Abdominal pain, resolved. 5. Profound dehydration, rehydrated. PLAN: 1. We will need to continue the insulin drip another day. 2. Accu-Cheks every 2 hours. 3. Advance diet as tolerated. 4. Follow up serial chemistries every 12 hours. 5. Continue IV PPI. 6. Tentative discharge planning for tomorrow. MOISES YUAN MD DR: LARISA/kori JOB#: [id number] / [id number]
--- NOTE | 2020-03-30 09:42 | NUR ---
This nurse was on phone w Dr Whitt updating on patient blood glucose overnight, and the elevated BG this morning, and BMP results. Orders received to stop K+ replacement NS, start IV NS at 75, resume regular insulin gtt at 5u/Hr, check glucose Q2hr. On assessment this morning, patient reports he did not sleep well last night but feels overall much better. His appearance is brighter and he is more awake this morning than yesterday. Orders implemented, will monitor BG as ordered.
[2020-03-30] MEDS: IV NORMAL SALINE 1,000ML 1,000 ML IV SCH ×2 (09:45→21:25)
[2020-03-30] MEDS: INSULIN LISPRO 300 UNITS/3 ML VIAL. SQ SCH ×3 (11:30→21:00)
--- NOTE | 2020-03-30 12:50 | NUR ---
Tea was spilled on patient bed, bed linen complete change. Pt up to chair, able to ambulate independently. Pt stated he felt dizzy. After a few minutes of sitting up in chair, he continued to feel 'woozy' BP 110/84, HR 89. Pt able to bend over and pick something off the floor, and able to ambulate back to bed. He said it must be from 'being in bed the last couple of days'. Pt in bed eating lunch, will continue to monitor.
[2020-03-30 21:11] LABS: CALCIUM 8.4 mg/dL (8.5-10.1); CREATININE 1.2 mg/dL (0.7-1.3); GFR 77.9
[2020-03-30] MEDS: MORPHINE SULFATE 4 MG/ML DISP.SYRIN. IV PRN (21:15)
[2020-03-31] MEDS: PANTOPRAZOLE IV 40 MG VIAL. IVP SCH (07:30)
[2020-03-31] MEDS: INSULIN LISPRO 300 UNITS/3 ML VIAL. SQ SCH (07:30)
[2020-03-31 08:30] VITALS: BP 106/71
--- NOTE | 2020-03-31 08:30 | NUR ---
NURSING NOTE THIS NURSE WAS BROUGHT TO ICU TO TAKE REPORT, REPORT FROM LIZET RAMÍREZ. PER REPORT, PT CURRENTLY GETTING 1 UNIT/HR OF CONTINUOUS INSULIN DRIP WITH ACCU CHECKS EVERY 2 HOURS. PER REPORT, INSULIN DRIP PROTOCOL NOT BEING USED AT THIS TIME. PT CURRENTLY BLOOD SUGAR AT 76. DR YUAN NOTIFIED. ORDER OBTAINED TO DC INSULIN DRIP, AND DC Q2 HOURS CHECK. ORDER OBTAINED FOR SLIDING SCALE HIGH DOSE, WELL ACHS ACCU CHECKS. DESIREE UNDERWOOD.
[2020-03-31] MEDS: GABAPENTIN 300 MG CAPSULE. PO SCH (08:35)
[2020-03-31 08:36] VITALS: BP 116/71
[2020-03-31] MEDS: CARVEDILOL 12.5 MG TABLET PO SCH (08:36)
--- NOTE | 2020-03-31 09:36 | NUR ---
NURSING NOTE DISCHARGE PT DISCHARGED HOME VIA AMBULATION PICKED UP BY . PT GIVEN WRITTEN AND VERBAL DISCHARGE INSTRUCTIONS. PT GOING HOME WITH ORDERS FROM DR YUAN FOR SHORT ACTING INSULIN THREE TIMES DAILY BEFORE MEALS AND JAIL INSULIN ONCE DAILY BEFORE BED. PT EDUCATED ABOUT IMPORTANCE OF TAKING BLOOD SUGAR BEFORE MEALS AND BEFORE BED. PT ALSO GIVEN SCRIPT FOR NEXIUM. PT GIVEN EXTENSIVE DIABETIC EDUCATION AT DISCHARGE AND SENT HOME WITH MULTIPLE PACKETS OF INFORMATION. PT DENIES ANY QUESTIONS. NO COMPLICATIONS. DESIREE UNDERWOOD.
--- NOTE | 2020-03-31 10:53 | DS ---
DATE OF DISCHARGE: 03/31/2020 ATTENDING PHYSICIAN: Dr. Yuan. FINAL DISCHARGE DIAGNOSES: 1. Diabetic ketoacidosis. 2. Poorly controlled diabetes. 3. Nausea and vomiting, resolved. 4. Gastroesophageal reflux disease. 5. Type 2 diabetes. 6. Chronic obstructive pulmonary disease. 7. Questionable compliance of meds. 8. The patient has chronic kidney disease due to unilateral kidney. HISTORY AND PHYSICAL: This is a 49-year-old gentleman with type 2 diabetes. He has been sick for the last 4 days. He was admitted through the ED with a blood sugar of 1085, anion gap of 40 and significant acidosis consistent with diabetic ketoacidosis. PHYSICAL EXAMINATION: Please see the dictated note. PERTINENT LABORATORY AND X-RAY STUDIES: Numerous. During the course of hospitalization, he had Accu-Cheks every 2-4 hours. He was on an insulin drip. Admission hemoglobin was 16.0 g/dL, white count 19,000. Subsequent chemistries showed an initial anion gap of 40. His CO2 was less than 10. Serially done this came up and prior to discharge, his sodium was up to 130, potassium 4.0 mEq, anion gap was down to 9, carbon dioxide came up to 24, creatinine had improved to 1.2 mg percent. COURSE IN THE HOSPITAL: The patient had a hemoglobin A1c of 15 suggesting very high blood sugars and no control. He was given an insulin drip and eventually fluids were administered for correction of his dehydration. Anion gap resolved and came back to normal, potassium was normalized, pseudohyponatremia corrected with improvement in his sugars. His diet was advanced. His abdominal pain improved with GI cocktail and IV Protonix. On the fourth hospital day, his vital signs were stable, he was not symptomatic, he was eating well, nausea had resolved and his chemistries are correcting. Fasting blood sugars are well controlled. At this time, I strongly recommend that he follow a q.i.d. regimen of 20 units of regular insulin before each meal and 20 units of Lantus insulin at bedtime. In addition, I wrote a script for Nexium 40 mg p.o. daily. He will continue his Coreg and Neurontin dose is unchanged. I suggested a followup visit with Dr. Aleman in the next week for a recheck. He seems to understand quite a bit about his insulin regimen, but whether he is compliant remains to be seen. In any event, the patient was then discharged from our hospital in stable condition with explicit instructions and followup care. Total discharge time spent 41 minutes. MOISES YUAN MD DR: LARISA/kori JOB#: [id number] / [id number] ROXY Dailey DO
== END 2020-03-31 09:38 | disposition home or self-care (01) | DRG 638 ==
LOC: ER 07:00 → 1 SOUTH 09:20 → ICU 14:35
PROVIDERS: ADMIT Hospitalist; ATTEND Hospitalist
DX: E11.10 Type 2 diabetes mellitus with ketoacidosis without coma (principal); N17.9 Acute kidney failure, unspecified; E86.0 Dehydration; F17.210 Nicotine dependence, cigarettes, uncomplicated; N18.9 Chronic kidney disease, unspecified; K21.9 Gastro-esophageal reflux disease without esophagitis; J44.9 Chronic obstructive pulmonary disease, unspecified; E11.22 Type 2 diabetes mellitus with diabetic chronic kidney disease; K30 Functional dyspepsia; E11.65 Type 2 diabetes mellitus with hyperglycemia; Z90.5 Acquired absence of kidney
CPT/HCPCS: 36415; 36600; 71045; 80048; 80053; 81001; 82010; 82803; 82947; 83690; 83735; 83880; 84484; 85007; 85025; 85610; 85730; 93005; 96361; 96374; C9113; J1815; J2270; J2405; 99285-25; 99291-25; J7030

== ENCOUNTER 2020-05-31 02:14 | Emergency (ER) | payer MEDICAID ==
[~2020-05-31] VITALS: Ht 182.9 cm; Wt 56.1 kg
[~2020-05-31 02:14] MED LIST changes: +GABA-586 PO; +INSU100V38 SQ
--- NOTE | 2020-05-31 02:27 | PHYS DOC ---
Past History Past Medical History: Cancer, Diabetes (HARPREET RUIZ MD) Past Surgical History: Other Additional Past Surgical Histo: RIGHT KIDNEY REMOVAL, RIGHT HAND SURGERY (HARPREET RUIZ MD) Alcohol Use: None Drug Use: None (HARPREET RUIZ MD) General Adult EDM: Chief Complaint: NAUSEA/VOMITING/DIARRHEA HPI: HPI: "..I am having nausea vomiting and diarrhea..... Maybe got some bad food I was eating some left over Thanksgiving food..... I did have my right kidney and ureter taken out 5 or 6 month ago at [place]. I normally follow with Dr. Aleman but now follows with Dr. Stewart..." Patient is a 50 year old male who presents with above hx and complaints nausea, vomiting and diarrhea. 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 Patient has been having increased frequency of urination. Has not checked his sugars today. Patient has history of previous DKA episodes when his diabetes gets out of control. No recent travel. No specific ill contacts. Normally follows with Dr. Stewart. Patient has been noncompliant with his diabetic diet. Patient does continue to smoke. (HARPREET RUIZ MD) Review of Systems: Review of Systems: Constitutional: Denies fever or chills Eyes: Denies change in visual acuity HENT: Denies nasal congestion or sore throat Respiratory: Denies cough or shortness of breath Cardiovascular: Denies chest pain or edema GI: Complains of, nausea, vomiting, and diarrhea : Denies dysuria Musculoskeletal: Denies back pain or joint pain Integument: Denies rash Neurologic: Denies headache, focal weakness or sensory changes Endocrine: Complains of polyuria or polydipsia Lymphatic: Denies swollen glands Psychiatric: Denies depression or anxiety (HARPREET RUIZ MD) Family History: Family History: Noncontributory to presentation Father has history of cancer of lung in age 70 range. (HARPREET RUIZ MD) Current Medications: Current Meds: See nursing for home meds (HARPREET RUIZ MD) Allergies: Allergies: Allergies Coded Allergies Type Severity Reaction Last Updated Verified Penicillins Allergy Intermediate 04/11/18 Yes I S O L A T I O N *CONTACT* Allergy Unknown 04/12/18 Yes (HARPREET RUIZ MD) Physical Exam: PE: Constitutional: Moderate acute distress, non-toxic appearance. [] HENT: Normocephalic, atraumatic, bilateral external ears normal, oropharynx dry, no oral exudates, nose normal. [] Eyes: PERRLA, EOMI, conjunctiva normal, no discharge. [] Neck: Normal range of motion, no tenderness, supple, no stridor. [] Cardiovascular: Regular heart rate regular rhythm, no murmur [] Lungs & Thorax: Bilateral breath sounds equal at apex with scattered wheezes on auscultation [] Abdomen: Bowel sounds decreased, soft, no tenderness, no masses, no pulsatile masses. Multiple scars from previous nephrectomy. Skin: Warm, dry, no erythema, no rash. Poor turgor. Back: No tenderness, no CVA tenderness. [] Extremities: No tenderness, no cyanosis, no clubbing, ROM intact, no edema. No cording appreciated Neurologic: Alert and oriented X 3, moves all extremities on request, does have distal sensory,, no focal deficits noted. [] Psychologic: Affect anxious, judgement normal, mood normal. [] (HARPREET RUIZ MD) Current Patient Data: Labs: Laboratory Tests Test 05/31/20 02:55 05/31/20 03:00 05/31/20 06:35 Urine Collection Type Unknown Urine Color Yellow Urine Clarity Clear Urine pH 5.5 Urine Specific [place] 1.015 Urine Protein Neg (NEG-TRACE) Urine Glucose (UA) 500 mg/dL (NEG) Urine Ketones (Stick) >=160 mg/dL (NEG) Urine Blood Neg (NEG) Urine Nitrite Neg (NEG) Urine Bilirubin Neg (NEG) Urine Urobilinogen Dipstick 0.2 mg/dL (0.2 mg/dL) Urine Leukocyte Esterase Neg (NEG) Urine RBC 0 /HPF (0-2) Urine WBC Occ /HPF (0-4) Urine Squamous Epithelial Cells Occ /LPF Urine Bacteria 0 /HPF (0-FEW) White Blood Count 12.8 x10^3/uL (4.0-11.0) Red Blood Count 4.58 x10^6/uL (4.30-5.70) Hemoglobin 15.7 g/dL (13.0-17.5) Hematocrit 50.2 % (39.0-53.0) Mean Corpuscular Volume 110 fL (79-100) Mean Corpuscular Hemoglobin 34 pg (25-35) Mean Corpuscular Hemoglobin Concent 31 g/dL (31-37) Red Cell Distribution Width 14.3 % (11.5-14.5) Platelet Count 321 x10^3/uL (140-400) Neutrophils (%) (Auto) 83 % (31-73) Lymphocytes (%) (Auto) 10 % (24-48) Monocytes (%) (Auto) 6 % (0-9) Eosinophils (%) (Auto) 0 % (0-3) Basophils (%) (Auto) 1 % (0-3) Neutrophils # (Auto) 10.6 x10^3uL (1.8-7.7) Lymphocytes # (Auto) 1.3 x10^3/uL (1.0-4.8) Monocytes # (Auto) 0.8 x10^3/uL (0.0-1.1) Eosinophils # (Auto) 0.0 x10^3/uL (0.0-0.7) Basophils # (Auto) 0.1 x10^3/uL (0.0-0.2) Platelet Estimate Adequate (ADEQUATE) Prothrombin Time 9.9 SEC (9.4-11.4) Prothromb Time International Ratio 1.0 (0.9-1.1) Activated Partial Thromboplast Time 21 SEC (23-33) D-Dimer (Josephine) 0.69 mg/L (0.00-0.50) Bedside Hemoglobin 16.7 gm/dL Bedside Hematocrit 49 % Bedside Venous pH 7.26 (7.32-7.42) Bedside Venous pCO2 30 mmHg (41-51) Bedside Venous pO2 193 mmHg (20-40) Venous Blood HCO3 13 mmol/L (24-28) POC Venous O2 Saturation (Pablo) 100 % Bedside FiO2 21 Bedside Sodium 121 mmol/L (135-145) Bedside Potassium 5.5 mmol/L (3.5-5.0) Bedside Chloride 78 mmol/L (98-110) Bedside Total CO2 15 mmol/L (23-32) Anion Gap 35 mmol/L (6-14) Bedside Blood Urea Nitrogen 42 mg/dL (8-26) Bedside Creatinine 1.7 mg/dL (0.5-1.4) Glucose Level > 700 mg/dL (60-99) Bedside Ionized Calcium (Pablo) 1.00 mmol/L (1.13-1.32) Vital Signs: Vital Signs Date Time Temp Pulse Resp B/P (MAP) Pulse Ox O2 Delivery O2 Flow Rate FiO2 05/31/20 05:31 78 114/70 (85) 100 Room Air 05/31/20 02:40 97.5 18 (SWAPNILORION ) EKG: EKG: My interpretation of EKG shows a sinus rhythm at 78 bpm. Does have leftward axis. There is a fascicular block. There is prolonged QT interval at 420 ms and the QTC is 483 ms [] (HARPREET RUIZ MD) Radiology/Procedures: Radiology/Procedures: [][place] [address] IMAGING REPORT Signed PATIENT: JAMEY LOPEZ ACCOUNT: [id number] : 1970 LOCATION: ER AGE: 50 SEX: M EXAM STATUS: REG ER ORD. PHYSICIAN: HARPREET RUIZ MD REASON: dyspnea PROCEDURE: PORTABLE CHEST 1V PORTABLE CHEST 1V INDICATION: Reason: dyspnea / Spl. Instructions: / History: . COMPARISON STUDY: 03/28/2020. FINDINGS: Lungs: Normal lung volume. No pulmonary mass or consolidation. The tracheobronchial tree and hilar structures are normal. Pleura: No pleural effusion or pneumothorax. Heart and Mediastinum: The cardiomediastinal silhouette is normal. The great vessels of the thorax are normal. Bones and Soft Tissues: The bones and soft tissues are within normal limits. IMPRESSION: No acute cardiopulmonary process. Electronically signed by: Susie Youssef MD (05/31/2020 2:55 AM) [facility] DICTATED AND SIGNED BY: SUSIE YOUSSEF MD DATE: 05/31/20 0255 CC: HARPREET RUIZ MD; GHAZALA STEWART MD ~MTH0 0 (HARPREET RUIZ MD) Heart Score: HEART Score for Chest Pain: HEART Score for Chest Pain Response (Comments) Value History Moderately Suspicious 1 ECG Nonspecific Repolarizatio 1 Age >45 - < 65 1 Risk Factors 1 or 2 Risk Factors 1 Troponin < Normal Limit 0 Total 4 Risk Factors: Risk Factors: DM, Current or recent (<one month) smoker, HTN, HLP, family history of CAD, obesity. Risk Scores: Score 0 - 3: 2.5% MACE over next 6 weeks - Discharge Home Score 4 - 6: 20.3% MACE over next 6 weeks - Admit for Clinical Observation Score 7 - 10: 72.7% MACE over next 6 weeks - Early Invasive Strategies (HARPREET RUIZ MD) Course & Med Decision Making: Course & Med Decision Making Pertinent Labs and Imaging studies reviewed. (See chart for details) Still awaiting labs electrolytes- 0530- Lab down Lab still down at 0730 hrs. Patient checked out to Dr. Gilbert at shift change. He will make disposition on patient Impression: 1. Nausea and Vomiting 2. Leukocytosis 12.8 3. DM- Appears DKA urine results.- Glu > 700 4. Profound dehydration 5. Hyponatremia- 121 6. Hyperkalemia 5.5 KCL [] (HARPREET RUIZ MD) Course & Med Decision Making Signout received from off going physician. Complications overnight due to lack of laboratory results given technical errors and lab running blood work Nonetheless, I received signout, reviewed work-up so far, and personally saw patient repeating certain aspects of history and physical exam. [id number] glucose obtained and greater than 700. Patient is a insulin-dependent type 2 diabetic with history of DKA, I fear he is in this again. 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 I called Dr. Mcneil at [facility] and discussed case, I discussed my concern for potential DKA but our facility is ill-equipped for further work- up at this time and need transfer for higher acuity of care, he ultimately accepted patient transfer I discussed plan of care with patient who is amenable to transfer. All questions and concerns addressed Later in patient's care, i-STAT laboratory values obtained indicating patient is indeed in DKA. As such, x2 large-bore peripheral IVs in place. 1 L IV normal saline at 250 mils an hour, 5 mg IV regular insulin bolus with subsequent drip at 5u/hr started. Patient updated on diagnosis of DKA, plan of care to transfer to [facility] for higher acuity of care remains the same. (ORION KRAFT DO) Dragon Disclaimer: Dragon Disclaimer: This electronic medical record was generated, in whole or in part, using a voice recognition dictation system. (HARPREET RUIZ MD) Departure Departure: Impression: Primary Impression: DKA (diabetic ketoacidosis) Additional Impression: Insulin dependent type 2 diabetes mellitus, uncontrolled Disposition: 02 DC/TRF OTHER SHORT TERM HOS ([facility]) Admitting Physician: Micki Mcneil (ORION KRAFT DO) Condition: STABLE Referrals: GHAZALA STEWART MD (PCP) Dragon Disclaimer This chart was dictated in whole or in part using Voice Recognition software in a busy, high-work load, and often noisy Emergency Department environment. It may contain unintended and wholly unrecognized errors or omissions. (HARPREET RUIZ MD) Dragon Disclaimer This chart was dictated in whole or in part using Voice Recognition software in a busy, high-work load, and often noisy Emergency Department environment. It may contain unintended and wholly unrecognized errors or omissions. (HARPREET RUIZ MD) Dragon Disclaimer This chart was dictated in whole or in part using Voice Recognition software in a busy, high-work load, and often noisy Emergency Department environment. It may contain unintended and wholly unrecognized errors or omissions. (HARPREET RUIZ MD) HARPREET RUIZ MD May 31, 2020 02:27 ORION KRAFT DO May 31, 2020 07:56
--- NOTE | 2020-05-31 02:58 | RAD ---
PORTABLE CHEST 1V INDICATION: Reason: dyspnea / Spl. Instructions: / History: . COMPARISON STUDY: 03/28/2020. FINDINGS: Lungs: Normal lung volume. No pulmonary mass or consolidation. The tracheobronchial tree and hilar structures are normal. Pleura: No pleural effusion or pneumothorax. Heart and Mediastinum: The cardiomediastinal silhouette is normal. The great vessels of the thorax are normal. Bones and Soft Tissues: The bones and soft tissues are within normal limits. IMPRESSION: No acute cardiopulmonary process. Electronically signed by: Rick Youssef MD (05/31/2020 2:55 AM) [facility]
[2020-05-31] MEDS ORDERED: ONDANSETRON PF 4 MG/2 ML VIAL. IVP ONE (03:00)
[2020-05-31] MEDS ORDERED: IV RINGERS SOLUTION,LACTATED 1,000 ML IV SCH (03:00)
[2020-05-31] MEDS ORDERED: FAMOTIDINE 20 MG/2 ML VIAL ONE (03:05)
[2020-05-31] MEDS ORDERED: FAMOTIDINE 20 MG/2 ML VIAL IVP ONE (03:30)
[2020-05-31 03:35] LABS: BASO # 0.1 x10^3/uL (0.0-0.2); BASO % 1 % (0-3); EOS % 0 % (0-3); HEMATOCRIT 50.2 % (39.0-53.0); HEMOGLOBIN 15.7 g/dL (13.0-17.5); LYMPH # 1.3 x10^3/uL (1.0-4.8); LYMPH % 10 % (24-48); MEAN CORPUSCULAR HEMOGLOBIN 34 pg (25-35); MEAN CORPUSCULAR HGB CONC 31 g/dL (31-37); MEAN CORPUSCULAR VOLUME 110 fL (79-100); MONO # 0.8 x10^3/uL (0.0-1.1); MONO % 6 % (0-9); NEUT # 10.6 x10^3uL (1.8-7.7); NEUT % 83 % (31-73); PLATELET COUNT 321 x10^3/uL (140-400); RED BLOOD COUNT 4.58 x10^6/uL (4.30-5.70); RED CELL DISTRIBUTION WIDTH 14.3 % (11.5-14.5); WHITE BLOOD COUNT 12.8 x10^3/uL (4.0-11.0)
[2020-05-31 03:44] LABS: BACTERIA,URINE 0 /HPF (0-FEW); BILIRUBIN,URINE NEG (NEG); CLARITY,URINE CLEAR; COLOR,URINE YELLOW; GLUCOSE,URINE 500 mg/dL (NEG); NITRITE,URINE NEG (NEG); RBC,URINE 0 /HPF (0-2); SQUAMOUS EPITHELIAL CELL,UR OCC /LPF; UROBILINOGEN,URINE 0.2 mg/dL (0.2 mg/dL); WBC,URINE OCC /HPF (0-4)
[2020-05-31] MEDS ORDERED: MORPHINE SULFATE 10 MG/ML SYRINGE. SQ ONE (04:00)
[2020-05-31 06:33] LABS: PLT ESTIMATE ADEQUATE (ADEQUATE)
[2020-05-31 07:28] LABS: BUN ISTAT 42 mg/dL (8-26); HEMATOCRIT ISTAT 49 %; HEMOGLOBIN ISTAT 16.7 gm/dL; POTASSIUM ISTAT 5.5 mmol/L (3.5-5.0); SODIUM ISTAT 121 mmol/L (135-145)
[2020-05-31 07:30] LABS: GLUCOSE ISTAT > 700 mg/dL (60-99)
[2020-05-31] MEDS ORDERED: INSULIN REGULAR 100 UNIT/ML 3ML VIAL. IV ONE (07:45)
[2020-05-31] MEDS ORDERED: IV NORMAL SALINE 1,000ML 1,000 ML IV ONE (07:45)
[2020-05-31] MEDS ORDERED: INSULIN REGULAR VIAL 100 UNIT in IV NORMAL SALINE 100ML 100 ML IV ONE (07:45)
[2020-05-31] MEDS ORDERED: INSULIN REGULAR VIAL 100 UNIT in IV NORMAL SALINE 100ML 100 ML IV PRN (08:00)
[2020-05-31] MEDS ORDERED: DEXTROSE 50% 25 GM / 50ML DISP.SYRIN. IV PRN (08:00)
[2020-05-31 09:03] LABS: TOTAL PROTEIN 7.9 g/dL (6.4-8.2)
[2020-05-31 09:04] LABS: ALBUMIN 4.2 g/dL (3.4-5.0); CALCIUM 9.3 mg/dL (8.5-10.1)
[2020-05-31 09:05] LABS: CREATININE 2.4 mg/dL (0.7-1.3); GFR 34.8; POTASSIUM 5.1 mmol/L (3.5-5.1); TOTAL BILIRUBIN 0.7 mg/dL (0.2-1.0)
[2020-05-31 09:06] LABS: DIRECT BILIRUBIN 0.2 mg/dL (0.0-0.2); MAGNESIUM 2.9 mg/dL (1.8-2.4)
[2020-05-31 09:08] LABS: AMPHETAMINE/METHAMPHETAMINE NEG (NEG); BARBITURATES NEG (NEG); BENZODIAZEPINES NEG (NEG); COCAINE NEG (NEG); METHADONE NEG (NEG)
[2020-05-31 09:09] LABS: CANNABINOIDS NEG (NEG); OPIATES NEG (NEG); PHENCYCLIDINE NEG (NEG)
[2020-05-31 10:20] LABS: BUN ISTAT 45 mg/dL (8-26); POTASSIUM ISTAT 4.4 mmol/L (3.5-5.0); SODIUM ISTAT 124 mmol/L (135-145)
[2020-05-31 10:21] LABS: HEMATOCRIT ISTAT 51 %; HEMOGLOBIN ISTAT 17.3 gm/dL
[2020-05-31 10:23] LABS: GLUCOSE ISTAT > 700 mg/dL (60-99)
[2020-05-31 10:30] VITALS: BP 114/81
[2020-05-31] MEDS ORDERED: PANTOPRAZOLE IV 40 MG VIAL. IVP ONE (10:30)
[2020-05-31] MEDS ORDERED: POTASSIUM CL 20MEQ-0.45% NACL 1,000 ML IV ONE (10:45)
--- NOTE | 2020-06-02 08:52 | EKG ---
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
== END 2020-05-31 13:20 | disposition short-term general hospital (02) ==
LOC: ER 02:14
DX: E11.10 Type 2 diabetes mellitus with ketoacidosis without coma (principal); E11.65 Type 2 diabetes mellitus with hyperglycemia; D72.829 Elevated white blood cell count, unspecified; E87.1 Hypo-osmolality and hyponatremia; E87.5 Hyperkalemia; E86.0 Dehydration; Z88.0 Allergy status to penicillin; Z88.8 Allergy status to other drugs, medicaments and biological substances
CPT/HCPCS: 36415; 71045; 80047; 80048; 80076; 80307; 81001; 82150; 82550; 82803; 82947; 83690; 83735; 83880; 84443; 84484; 85025; 85379; 85610; 85730; 93005; 96361; 96365; 96366; 96372; 96374; 96375; 96376; 99285; C9113; J1815; J2270; J2405; J3010; J3490; J7030; J7120

== ENCOUNTER 2020-10-05 22:35 | Emergency (ER) | payer OTHER, MEDICAID ==
[~2020-10-05] VITALS: Ht 182.9 cm; Wt 56.1 kg
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
[2020-10-05] MEDS ORDERED: ACETAMINOPHEN 500 MG TABLET PO ONE (23:30)
[2020-10-05] MEDS ORDERED: IBUPROFEN 600 MG TABLET. PO ONE (23:30)
[2020-10-05 23:39] VITALS: BP 112/75
== END 2020-10-05 23:39 | disposition home or self-care (01) ==
LOC: ER 22:35
DX: Z04.1 Encounter for examination and observation following transport accident (principal); E11.9 Type 2 diabetes mellitus without complications; Z88.0 Allergy status to penicillin
CPT/HCPCS: 99283-25

== ENCOUNTER → 2020-10-10 | Outpatient (CLI) | payer OTHER, MEDICAID ==
[2020-10-05 23:39] VITALS: BP 112/75
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
== END ==
LOC: PMG 12:07
PROVIDERS: ATTEND Physician Assistant
DX: M47.817 Spondylosis without myelopathy or radiculopathy, lumbosacral region (principal); M47.812 Spondylosis without myelopathy or radiculopathy, cervical region
CPT/HCPCS: 72050; 72072; 72110

== ENCOUNTER 2020-10-19 14:03 | Inpatient (IN) | payer MEDICAID, OTHER ==
[~2020-10-19] VITALS: Ht 182.9 cm; Wt 54.2 kg
[2020-10-19] MEDS ORDERED: ONDANSETRON ODT 4 MG TAB.RAPDIS ONE (14:30)
[2020-10-19] MEDS ORDERED: ONDANSETRON ODT 4 MG TAB.RAPDIS PO ONE (14:30)
[2020-10-19] MEDS ORDERED: IV NORMAL SALINE 1,000ML 1,000 ML IV ONE ×2 (14:30)
--- NOTE | 2020-10-19 14:47 | RAD ---
EXAM: Chest, single view. HISTORY: Vomiting. Shortness of air. COMPARISON: 05/31/2020. FINDINGS: A frontal view of the chest is obtained. There is no infiltrate, pleural effusion or pneumo thorax. The heart is normal in size. IMPRESSION: No acute pulmonary finding. Electronically signed by: Alessandra Calderon MD (10/19/2020 2:45 PM) [id number]
[2020-10-19 15:00] LABS: BASO # 0.1 x10^3/uL (0.0-0.2); BASO % 1 % (0-3); EOS % 0 % (0-3); HEMATOCRIT 47.3 % (39.0-53.0); HEMOGLOBIN 15.1 g/dL (13.0-17.5); LYMPH # 0.9 x10^3/uL (1.0-4.8); LYMPH % 7 % (24-48); MEAN CORPUSCULAR HEMOGLOBIN 34 pg (25-35); MEAN CORPUSCULAR HGB CONC 32 g/dL (31-37); MEAN CORPUSCULAR VOLUME 107 fL (79-100); MONO # 0.6 x10^3/uL (0.0-1.1); MONO % 5 % (0-9); NEUT # 11.1 x10^3uL (1.8-7.7); NEUT % 87 % (31-73); PLATELET COUNT 269 x10^3/uL (140-400); RED BLOOD COUNT 4.44 x10^6/uL (4.30-5.70); RED CELL DISTRIBUTION WIDTH 13.4 % (11.5-14.5); WHITE BLOOD COUNT 12.7 x10^3/uL (4.0-11.0)
[2020-10-19] MEDS ORDERED: ONDANSETRON PF 4 MG/2 ML VIAL. IVP ONE (15:00)
[2020-10-19] MEDS ORDERED: FAMOTIDINE 20 MG/2 ML VIAL ONE (15:00)
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
[2020-10-19 15:08] LABS: CALCIUM 10.6 mg/dL (8.5-10.1); POTASSIUM 4.3 mmol/L (3.5-5.1)
[2020-10-19] MEDS ORDERED: METOCLOPRAMIDE HCL 10 MG/2 ML VIAL. IVP ONE (15:15)
[2020-10-19 15:17] LABS: ALBUMIN 3.8 g/dL (3.4-5.0); ALBUMIN/GLOBULIN RATIO 1.1 (1.0-1.7); TOTAL BILIRUBIN 0.8 mg/dL (0.2-1.0); TOTAL PROTEIN 7.4 g/dL (6.4-8.2)
[2020-10-19 15:20] LABS: PHOSPHORUS 9.6 mg/dL (2.6-4.7)
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
[2020-10-19] MEDS ORDERED: MORPHINE SULFATE 4 MG/ML DISP.SYRIN. IV ONE (15:30)
--- NOTE | 2020-10-19 15:32 | EKG ---
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
[2020-10-19] MEDS ORDERED: FAMOTIDINE 20 MG/2 ML VIAL IVP ONE (15:45)
[2020-10-19 15:47] LABS: BILIRUBIN,URINE NEG (NEG); CLARITY,URINE CLEAR; COLOR,URINE STRAW; GLUCOSE,URINE 500 mg/dL (NEG); NITRITE,URINE NEG (NEG); UROBILINOGEN,URINE 0.2 mg/dL (0.2 mg/dL)
[2020-10-19 15:48] LABS: RBC,URINE 0 /HPF (0-2); WBC,URINE 0 /HPF (0-4)
[2020-10-19 15:49] LABS: BACTERIA,URINE 0 /HPF (0-FEW)
[2020-10-19] MEDS ORDERED: DEXTROSE 50% 25 GM / 50ML DISP.SYRIN. IV PRN (16:00)
[2020-10-19] MEDS: INSULIN REGULAR VIAL 100 UNIT in IV NORMAL SALINE 100ML 100 ML IV PRN ×2 (17:16→19:20)
[2020-10-19] MEDS ORDERED: IV DEXTROSE 5 %-0.45 % NACL 1,000 ML IV SCH (18:30)
[2020-10-19] MEDS ORDERED: MAGNESIUM SULFATE 2GM 50 ML IV PRN (18:30)
[2020-10-19] MEDS ORDERED: IV NORMAL SALINE 1,000ML 1,000 ML IV SCH ×2 (18:30)
[2020-10-19] MEDS ORDERED: INSULIN REGULAR VIAL 100 UNIT in IV NORMAL SALINE 100ML 100 ML IV PRN (18:30)
[2020-10-19] MEDS ORDERED: POTASSIUM CHLORIDE 10MEQ 100 ML IV PRN ×4 (18:30)
[2020-10-19] MEDS ORDERED: POTASSIUM CL 20MEQ IN 0.9%NACL 1,000 ML IV SCH (18:45)
[2020-10-19] MEDS ORDERED: ELECTROLYTE (ICU) PROTOCOL. MC ONE (18:45)
[2020-10-19 19:03] VITALS: BP 144/98
[2020-10-19] MEDS ORDERED: TRAM50TA PO (19:32)
[2020-10-19] MEDS ORDERED: INSU100I46 SQ (19:32)
[2020-10-19] MEDS ORDERED: CARV6.253 PO (19:32)
[2020-10-19] MEDS ORDERED: CYCL-331 PO (19:32)
[2020-10-19 20:00] VITALS: BP 164/101
[2020-10-19] MEDS: GABAPENTIN 300 MG CAPSULE. PO SCH (20:41)
[2020-10-19] MEDS: CARVEDILOL 6.25 MG TABLET PO SCH (20:41)
[2020-10-19] MEDS: MORPHINE SULFATE 4 MG/ML DISP.SYRIN. IV PRN (20:41)
[2020-10-19] MEDS ORDERED: ONDANSETRON PF 4 MG/2 ML VIAL. IVP PRN (20:45)
[2020-10-19 21:06] VITALS: BP 153/109
[2020-10-19 22:00] VITALS: BP 129/90
[2020-10-19 22:35] LABS: CALCIUM 9.8 mg/dL (8.5-10.1); CREATININE 2.2 mg/dL (0.7-1.3); GFR 38.5; POTASSIUM 3.5 mmol/L (3.5-5.1)
[2020-10-19] MEDS: POTASSIUM CL 20MEQ D5-0.45NACL 1,000 ML IV SCH (22:40)
[2020-10-19 23:11] VITALS: BP 143/98
[2020-10-19] MEDS ORDERED: POTASSIUM CHLORIDE 20 MEQ TABLET.ER. PO ONE (23:30)
[2020-10-20] VITALS (19 sets, daily range): BP systolic 130–178; BP diastolic 85–119
[2020-10-20] MEDS: MORPHINE SULFATE 4 MG/ML DISP.SYRIN. IV PRN ×2 (01:49→08:33)
[2020-10-20 02:54] LABS: CALCIUM 9.1 mg/dL (8.5-10.1); CREATININE 1.8 mg/dL (0.7-1.3); GFR 48.6; POTASSIUM 3.5 mmol/L (3.5-5.1)
[2020-10-20] MEDS ORDERED: POTASSIUM CHLORIDE 20 MEQ TABLET.ER. PO ONE (03:30)
[2020-10-20] MEDS: POTASSIUM CL 20MEQ D5-0.45NACL 1,000 ML IV SCH ×3 (04:14→15:39)
[2020-10-20 06:53] LABS: CALCIUM 8.7 mg/dL (8.5-10.1); CREATININE 1.8 mg/dL (0.7-1.3); GFR 48.6; POTASSIUM 3.6 mmol/L (3.5-5.1)
[2020-10-20] MEDS: GABAPENTIN 300 MG CAPSULE. PO SCH ×3 (08:30→20:13)
[2020-10-20] MEDS: CARVEDILOL 6.25 MG TABLET PO SCH ×2 (08:31→17:41)
[2020-10-20] MEDS ORDERED: CYCLOBENZAPRINE 10 MG TABLET. PO PRN (12:45)
[2020-10-20] MEDS ORDERED: traMADol 50 MG TABLET PO PRN (12:45)
[2020-10-20] MEDS ORDERED: BACLOFEN 10 MG TABLET PO PRN (13:15)
[2020-10-20] MEDS: oxyCODONE IR 5 MG TABLET PO PRN (14:05)
--- NOTE | 2020-10-20 14:35 | HP ---
ADMIT DATE: 10/19/2020 HISTORY OF PRESENT ILLNESS: The patient is a 50-year-old -[place] male patient who presented to the emergency room with a complaint of recurrent bouts of nausea and vomiting for 1 week. He stated that he has not had any bowel movement for 1 week. He also has a history of bowel obstruction and hospitalization for DKA. He stated his blood sugar has been reading high at home. Denied taking anything for nausea at home. He reported epigastric discomfort and has severe heartburn. He was extensively evaluated in the emergency room and has had lab work done, which showed that he has mild leukocytosis. His blood sugar was extremely high at 1037. 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 He was admitted and started on IV fluid and insulin drip as per the DKA protocol, although effectively he was not actually in diabetic ketoacidosis. He was in hyperosmolar nonketotic hyperglycemia. PAST MEDICAL HISTORY: Significant for hypertension, chronic kidney disease, gastroesophageal reflux disease, right ureteric transitional cell carcinoma. He has had a history of MRSA abscess on his right palm treated with incision and drainage. Other medical problems include hypertension and diabetic peripheral neuropathy. PAST SURGICAL HISTORY: Significant for right nephrectomy and right thumb abscess drainage. ALLERGIES: HE IS ALLERGIC TO PENICILLIN. MEDICATIONS: He is currently on the following medications. He is on cyclobenzaprine 10 mg 3 times a day, carvedilol 6.25 mg twice a day, tramadol 50 mg every 6 hours, gabapentin 300 mg 3 times a day, and insulin lispro 20 units before meals. FAMILY HISTORY: Has one brother who is alive and younger, has hypertension. Father at age of 60 because of lung cancer. Mother is alive at age of 68, has thyroid disease and knee replacement. SOCIAL HISTORY: He is single, never , has one son. He currently lives with his mother. He smokes 10 cigarettes a day, does not drink alcohol and he is currently unemployed. REVIEW OF SYSTEMS: The patient denied any blurring of vision, cataracts, glaucoma or macular degeneration. Denied any earache, tinnitus or sensorineural deafness. Denied any nosebleed, stuffy nose or postnasal drip. Denied any sore throat, sore tongue, toothache, hoarseness of voice or difficulty swallowing. Did complain of nausea and vomiting and has constipation. Denied any dysuria. Did complain of frequency and nocturia, but denied any hematuria. He denied any chest pain, shortness of breath, orthopnea or paroxysmal nocturnal dyspnea. Denied any cough, phlegm or hemoptysis. On arrival to the emergency room, he looked well, and he was slightly tachypneic ____ tachycardiac, but there was no pallor, jaundice, cyanosis. No lymphadenopathy, no thyromegaly, no jugular venous distention. No limb edema. PHYSICAL EXAMINATION: VITAL SIGNS: His heart rate was 108, blood pressure 153/109, temperature was 98.9, respiratory rate was 27 and oxygen saturation was 96% on room air. HEAD, EYES, EARS, NOSE, AND THROAT: Normocephalic, atraumatic. NECK: Supple. HEART: Showed normal first and second heart sounds, no gallop, rub or murmur. CHEST: Clear to auscultation. No crepitation or rhonchi. ABDOMEN: Distended, soft, nontender. NEUROLOGIC: He was awake, alert, responding appropriately. All cranial nerves intact. He moves extremities without difficulty. He ambulates without assistance or assistive devices. LABORATORY DATA: His lab work showed a white cell count 12,700, hemoglobin 15, hematocrit 47, MCV 107, and a platelet count 269,000 with a manual differential showed 87% polymorphs, 7% lymphocytes, and 5% monocytes. His chemistry showed a serum sodium 126, potassium 4.3, chloride 71, bicarbonate 25, anion gap of 30, BUN 37, creatinine was 2. Estimated GFR was 43 mL per minute. His glucose was 1037. His calcium was 10.6, phosphorus was 9.6, magnesium was 2. Total bilirubin is normal. AST, ALT, alkaline phosphatase were elevated. His total protein was 7.4, albumin was 3.8. His blood gases showed a pH of 7.48, pCO2 of 45, pO2 of 61, bicarbonate 33 and oxygen saturation was 93% on room air. Urinalysis showed the urine was straw colored, clear with a pH of 5.5, specific gravity of 1.010. Urine was negative for protein. There was large amount of glucose, small amount of ketones. The urine was negative for blood, nitrite and leukocyte esterase. His urine tox screen showed moderate amount of acetone level. ASSESSMENT AND PLAN: The patient was admitted and was started on IV fluid as well as insulin drip as per diabetic ketoacidosis protocol. We will monitor his blood sugar and switch him back to his regimen. I have had a lengthy discussion with him about how his blood sugar is poorly controlled and that is the reason for his weakness and inability to work. WOODY/SUSIE/WILLEM DR: Edwige TID: [id number]
[2020-10-20] MEDS ORDERED: PANTOPRAZOLE 40 MG TABLET. PO ONE (17:30)
[2020-10-20] MEDS: INSULIN LISPRO 300 UNITS/3 ML VIAL. SQ SCH (17:42)
[2020-10-20] MEDS: CALCIUM CARBONATE 500 MG TAB.CHEW PO PRN ×2 (17:42→20:13)
[2020-10-20] MEDS ORDERED: POLYETHYLENE GLYCOL 3350 17 GM PACKET. PO PRN (19:15)
[2020-10-20] MEDS ORDERED: SODIUM PHOSPHATES 19/7GM 133 ML ENEMA. PR PRN (19:15)
[2020-10-20] MEDS: DOCUSATE SODIUM 100 MG CAPSULE PO SCH (20:13)
[2020-10-21 05:25] VITALS: BP 151/109
[2020-10-21] MEDS ORDERED: BISACODYL 10 MG SUPP.RECT PR PRN (05:30)
[2020-10-21 06:10] LABS: HEMATOCRIT 45.7 % (39.0-53.0); HEMOGLOBIN 15.2 g/dL (13.0-17.5); RED BLOOD COUNT 4.35 x10^6/uL (4.30-5.70); RED CELL DISTRIBUTION WIDTH 13.3 % (11.5-14.5)
[2020-10-21 06:31] LABS: ALBUMIN 3.4 g/dL (3.4-5.0); CALCIUM 8.7 mg/dL (8.5-10.1); CREATININE 1.5 mg/dL (0.7-1.3); GFR 59.9; POTASSIUM 5.2 mmol/L (3.5-5.1); TOTAL BILIRUBIN 0.8 mg/dL (0.2-1.0); TOTAL PROTEIN 6.9 g/dL (6.4-8.2)
[2020-10-21] MEDS ORDERED: INSULIN LISPRO 300 UNITS/3 ML VIAL. SQ ONE (07:00)
[2020-10-21 07:25] LABS: HEMOGLOBIN A1C 13.2 % (4.8-5.6)
[2020-10-21] MEDS ORDERED: PANTOPRAZOLE 40 MG TABLET. PO SCH (07:30)
[2020-10-21] MEDS: CARVEDILOL 6.25 MG TABLET PO SCH (08:15)
[2020-10-21] MEDS: DOCUSATE SODIUM 100 MG CAPSULE PO SCH (08:15)
[2020-10-21] MEDS: GABAPENTIN 300 MG CAPSULE. PO SCH ×2 (08:15→14:29)
[2020-10-21] MEDS: INSULIN LISPRO 300 UNITS/3 ML VIAL. SQ SCH ×2 (08:22→12:00)
[2020-10-21 10:32] VITALS: BP 124/91
[2020-10-21] MEDS: oxyCODONE IR 5 MG TABLET PO PRN (12:36)
[2020-10-21 15:08] VITALS: BP 128/97
--- NOTE | 2020-10-21 22:25 | DS ---
DATE OF DISCHARGE: 10/21/2020 HOSPITAL COURSE: The patient is a 50-year-old -[place] male patient who presented with hyperosmolar nonketotic hyperglycemia. We started to treat him with insulin drip and IV fluid and his blood sugar has finally improved. He required a lot of teaching for him to understand that the blood sugar should be much lower than what he thinks is normal and basically I have stressed to him that he has to take the lead to control his blood sugar and that the values he is presenting are extremely high and they are the reason for all his symptoms of polydipsia, polyuria and weight loss. I stressed this also in front of his mother, explained to him that he should try to get a primary care physician, gave him the list of all the doctors that are in the network and I also stressed that he should start on Lantus at least 5-6 units and he can experiment and see which one controlled his blood sugar. I also ordered him to have his fasting blood sugar at least 100-120 mg/dL. PHYSICAL EXAMINATION: GENERAL: When I examined him this afternoon, he looked well and was clearly in no apparent respiratory distress. Pale; no jaundice, cyanosis or thyromegaly. VITAL SIGNS: His heart rate was 70, blood pressure is 128/97, temperature was 98.1, respiratory rate was 16 and oxygen saturation was 97%. HEAD, EYES, EARS, NOSE AND THROAT: Normocephalic, atraumatic. NECK: No jugular venous distention or edema. Supple. HEART: Showed normal first and second heart sounds. No gallop, rub or murmur. CHEST: Clear to auscultation. No crepitation or rhonchi. ABDOMEN: Distended, soft, nontender. NEUROLOGIC: He is awake, alert, responding appropriately. All cranial nerves intact. He moves extremities without difficulty, ambulates without assistance or assistive devices. LABORATORY DATA: His lab work this morning showed a serum sodium 127, potassium 5.2, chloride 90, bicarbonate 29, anion gap of 8, BUN 21, creatinine 1.5. Estimated GFR was 59 mL per minute. His glucose is 500, calcium was 8.7. Total bilirubin with normal AST, ALT. Alkaline phosphatase slightly elevated. Total protein was 6.9, albumin was 3.4. His white cell count was 10,000, hemoglobin 15, hematocrit 45, MCV 105 and platelet count of 233,000. DISCHARGE MEDICATIONS: He was discharged home to continue on carvedilol 6.25 mg twice a day, cyclobenzaprine 10 mg 3 times a day, gabapentin 300 mg 3 times a day. He is on insulin lispro KwikPen 20 units before meals, tramadol 50 mg every 6 hours. I gave him also oxycodone 5 mg immediate release tablet, 1 tablet every 6 hours for 4 days. I also advised him to continue on his Lantus insulin at least to start with 5 units and experiment with that and aim to control his blood sugars so that his symptoms will resolve and he will be stronger and he can work and enjoy his life. DESI DR: Edwige TID: [id number]
== END 2020-10-21 17:15 | disposition home or self-care (01) | DRG 637 ==
LOC: ER 14:03 → ICU 16:06
PROVIDERS: ADMIT Internal Medicine; ATTEND Internal Medicine
DX: E11.00 Type 2 diabetes mellitus with hyperosmolarity without nonketotic hyperglycemic-hyperosmolar coma (NKHHC) (principal); N17.0 Acute kidney failure with tubular necrosis; E86.0 Dehydration; E11.22 Type 2 diabetes mellitus with diabetic chronic kidney disease; I12.9 Hypertensive chronic kidney disease with stage 1 through stage 4 chronic kidney disease, or unspecified chronic kidney disease; N18.9 Chronic kidney disease, unspecified; F17.210 Nicotine dependence, cigarettes, uncomplicated; D72.829 Elevated white blood cell count, unspecified; K21.9 Gastro-esophageal reflux disease without esophagitis; E11.42 Type 2 diabetes mellitus with diabetic polyneuropathy; Z82.49 Family history of ischemic heart disease and other diseases of the circulatory system; Z80.1 Family history of malignant neoplasm of trachea, bronchus and lung; Z88.0 Allergy status to penicillin; Z56.0 Unemployment, unspecified; Z85.50 Personal history of malignant neoplasm of unspecified urinary tract organ; Z86.14 Personal history of Methicillin resistant Staphylococcus aureus infection; Z90.5 Acquired absence of kidney
CPT/HCPCS: 36415; 71045; 74176; 80048; 80053; 81001; 82010; 82803; 82947; 83036; 83735; 83930; 84100; 85025; 85027; 93005; 96361; 96374; 96375; 99406; J1815; J2270; J2405; J2765; J3490; Q0162; 99285-25; J7030

== ENCOUNTER 2021-02-08 22:25 | Emergency (ER) | payer MEDICAID, OTHER ==
[~2021-02-08] VITALS: Ht 182.9 cm; Wt 58.7 kg
[~2021-02-08 22:25] MED LIST changes: +CARV6.253 PO; +CYCL-331 PO; +INSU100I46 SQ; +TRAM50TA PO
--- NOTE | 2021-02-08 22:58 | PHYS DOC ---
Past History Past Medical History: Cancer, Constipation, Diabetes, Renal Disease, Other Additional Past Medical Histor: bowel obstruction Past Surgical History: Other Additional Past Surgical Histo: RIGHT KIDNEY REMOVAL, RIGHT HAND SURGERY Alcohol Use: None Drug Use: None General Adult HPI: HPI: " My sugars have been really high .and I think I ve gotten my self really dehydrated.." . I Patient is a 50 year old male who presents with above hx and complaints DM with elevated glucose levels and generalized abdomen pain Pt.also has hx of gastroparesis and GERD. Pt. Normally follow with Dr champagne at. [facility]. Has scheduled follow up with GI at [facility]. 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 (Vincalcides) 16 months ago. Patient admits to poor diet and med control of his diabetes. Patient primary concern tonight he is allowed himself to become dehydrated. Patient pleaded Covid vaccinations 3 months ago. . Review of Systems: Review of Systems: Constitutional: Denies fever or chills Eyes: Denies change in visual acuity HENT: Denies nasal congestion or sore throat Respiratory: Denies cough or shortness of breath Cardiovascular: Denies chest pain or edema GI: Complains of epigastric abdominal pain, nausea, vomiting,. Denies bloody stools or diarrhea : Denies dysuria Musculoskeletal: Denies back pain or joint pain Integument: Denies rash Neurologic: Denies headache, focal weakness or sensory changes Endocrine: History of polyuria or polydipsia and elevated blood sugars at home. Earlier had readings too high to read on his glucometer. Lymphatic: Denies swollen glands Psychiatric: Denies depression or anxiety Family History: Family History: Noncontributory to presentation Current Medications: Current Meds: See nursing for home meds Allergies: Allergies: Allergies Coded Allergies Type Severity Reaction Last Updated Verified Penicillins Allergy Intermediate 04/11/18 Yes I S O L A T I O N *CONTACT* Allergy Unknown 04/12/18 Yes Physical Exam: PE: Constitutional: Moderate acute distress, non-toxic appearance. [] HENT: Normocephalic, atraumatic, bilateral external ears normal, oropharynx dry, no oral exudates, nose normal. [] Eyes: PERRLA, EOMI, conjunctiva normal, no discharge. [] Neck: Normal range of motion, no tenderness, supple, no stridor. [] Cardiovascular:Heart rate regular rhythm, no murmur [] Lungs & Thorax: Bilateral breath sounds to apex scattered wheezes on auscultat ion [] Abdomen: Bowel sounds normal, soft, mild epigastric tenderness, no masses, no pulsatile masses. Multiple small and surgery scars suture lines appear to be well-healed. 1 central incision site/scar has findings of possible hernia with no entrapped bowel. Skin: Warm, dry, no erythema, no rash. Poor turgor Back: No tenderness, no CVA tenderness. [] Extremities: No tenderness, no cyanosis, no clubbing, ROM intact, no edema. No cording. Neurologic: Alert and oriented X 3, normal motor function, normal sensory function, no focal deficits noted. [] Psychologic: Affect anxious, judgement normal, mood normal. [] EKG: EKG: My interpretation EKG shows a sinus rhythm 72 bpm. Left axis deviation. Left fascicular block. Some nonspecific anterior septal changes and inferior chain changes but no findings of acute STEMI or contralateral changes abnormal EKG. [] Radiology/Procedures: Radiology/Procedures: [[address] [address] IMAGING REPORT Signed PATIENT: JAMEY CONTI ACCOUNT: [id number] : 1970 LOCATION: ER AGE: 50 SEX: M EXAM STATUS: REG ER ORD. PHYSICIAN: HARPREET RUIZ MD REASON: hypertension PROCEDURE: PORTABLE CHEST 1V AP chest x-ray HISTORY: Hypertension. COMPARISON: Chest x-ray October 19, 2020 FINDINGS: Heart size is normal. Mediastinal silhouette is normal. No pneumothorax, pulmonary opacities or pleural effusions. The bones are unremarkable. IMPRESSION: No acute process. Electronically signed by: Juan Medina MD (02/08/2021 11:39 PM) [facility] [place] SIGNED BY: JUAN MEDINA MD DATE: 02/08/21 8225 CC: HARPREET RUIZ MD; GHAZALA STEWART MD ~[facility] 0 ][address] [address] IMAGING REPORT Signed PATIENT: JAMEY CONTI ACCOUNT: [id number] : 1970 LOCATION: ER AGE: 50 SEX: M EXAM STATUS: REG ER ORD. PHYSICIAN: HARPREET RUIZ MD REASON: hypertension PROCEDURE: PORTABLE CHEST 1V AP chest x-ray HISTORY: Hypertension. COMPARISON: Chest x-ray October 19, 2020 FINDINGS: Heart size is normal. Mediastinal silhouette is normal. No pneumothorax, pulmonary opacities or pleural effusions. The bones are unremarkable. IMPRESSION: No acute process. Electronically signed by: Juan Medina MD (02/08/2021 11:39 PM) [facility] [place] SIGNED BY: JUAN MEDINA MD DATE: 02/08/21 0308 CC: HARPREET RUIZ MD; GHAZALA STEWART MD ~MTH0 0 Heart Score: C/O Chest Pain: N/A HEART Score for Chest Pain: HEART Score for Chest Pain Response (Comments) Value History Moderately Suspicious 1 ECG Nonspecific Repolarizatio 1 Age >45 - < 65 1 Risk Factors 1 or 2 Risk Factors 1 Troponin < Normal Limit 0 Total 4 Risk Factors: Risk Factors: DM, Current or recent (<one month) smoker, HTN, HLP, family history of CAD, obesity. Risk Scores: Score 0 - 3: 2.5% MACE over next 6 weeks - Discharge Home Score 4 - 6: 20.3% MACE over next 6 weeks - Admit for Clinical Observation Score 7 - 10: 72.7% MACE over next 6 weeks - Early Invasive Strategies Course & Med Decision Making: Course & Med Decision Making Pertinent Labs and Imaging studies reviewed. (See chart for details) After bolus of LR fluid 1000 cc., Zofran, Toradol, patient requesting discharge. Patient's glucose level here was 165. Did have findings of dehydration. Patient refused to stay for further work-up. Patient encouraged follow-up Covid testing results. Patient follow-up with urology as scheduled. Patient return if any concerns. Patient self isolate until Covid results known. Keep follow-up with Dr. Stewart.. Keep follow-up with urology. Impression: 1. Viral syndrome 2. Diabetes poor control-currently glucose 165 3. Dehydration 4. Elevated hemoglobin 38 .8 5. Elevated LFTs AST 63 ALT 23 and alk phos 146 6. Renal insufficiency 7. History of right nephrectomy 16 months ago for Ureter Cancer 8. History of gastroparesis 9. History of GERD 10. Tobacco use [] Dragon Disclaimer: Dragon Disclaimer: This electronic medical record was generated, in whole or in part, using a voice recognition dictation system. Departure Departure: Referrals: GHAZALA STEWART MD (PCP) Scripts Famotidine (PEPCID) 20 Mg Tablet 20 MG PO BID for GERD, for 30 Days, #60 TAB Prov: HARPREET RUIZ MD 02/09/21 HARPREET RUIZ MD Feb 08, 2021 22:58
[2021-02-08] MEDS ORDERED: INSULIN REGULAR VIAL 100 UNIT in IV NORMAL SALINE 100ML 100 ML IV PRN (23:15)
[2021-02-08] MEDS ORDERED: IV NORMAL SALINE 1,000ML 1,000 ML IV SCH (23:30)
--- NOTE | 2021-02-08 23:41 | RAD ---
AP chest x-ray HISTORY: Hypertension. COMPARISON: Chest x-ray October 19, 2020 FINDINGS: Heart size is normal. Mediastinal silhouette is normal. No pneumothorax, pulmonary opacitie s or pleural effusions. The bones are unremarkable. IMPRESSION: No acute process. Electronically signed by: Phill Medina MD (02/08/2021 11:39 PM) [facility]
[2021-02-08 23:49] LABS: BASO # 0.1 x10^3/uL (0.0-0.2); BASO % 1 % (0-3); EOS # 0.1 x10^3/uL (0.0-0.7); EOS % 1 % (0-3); HEMATOCRIT 38.8 % (39.0-53.0); HEMOGLOBIN 13.6 g/dL (13.0-17.5); LYMPH # 3.3 x10^3/uL (1.0-4.8); LYMPH % 38 % (24-48); MEAN CORPUSCULAR HEMOGLOBIN 35 pg (25-35); MEAN CORPUSCULAR HGB CONC 35 g/dL (31-37); MEAN CORPUSCULAR VOLUME 101 fL (79-100); MONO # 0.7 x10^3/uL (0.0-1.1); MONO % 8 % (0-9); NEUT # 4.7 x10^3uL (1.8-7.7); NEUT % 53 % (31-73); PLATELET COUNT 276 x10^3/uL (140-400); RED BLOOD COUNT 3.86 x10^6/uL (4.30-5.70); WHITE BLOOD COUNT 8.8 x10^3/uL (4.0-11.0)
[2021-02-08 23:56] LABS: BILIRUBIN,URINE SMALL (NEG); CLARITY,URINE CLEAR; COLOR,URINE YELLOW; GLUCOSE,URINE >=1000 mg/dL (NEG)
[2021-02-08 23:57] LABS: BACTERIA,URINE 0 /HPF (0-FEW); NITRITE,URINE NEG (NEG); RBC,URINE 0 /HPF (0-2); SQUAMOUS EPITHELIAL CELL,UR OCC /LPF; UROBILINOGEN,URINE 0.2 mg/dL (0.2 mg/dL); WBC,URINE OCC /HPF (0-4)
[2021-02-09 00:01] LABS: BARBITURATES NEG (NEG); BENZODIAZEPINES NEG (NEG); CANNABINOIDS NEG (NEG); COCAINE NEG (NEG); METHADONE NEG (NEG); OPIATES NEG (NEG); PHENCYCLIDINE NEG (NEG)
[2021-02-09 00:02] LABS: AMPHETAMINE/METHAMPHETAMINE NEG (NEG)
[2021-02-09 00:03] LABS: CALCIUM 10.8 mg/dL (8.5-10.1); CREATININE 1.9 mg/dL (0.7-1.3); GFR 45.6; POTASSIUM 3.6 mmol/L (3.5-5.1)
[2021-02-09 00:15] LABS: ALBUMIN 3.5 g/dL (3.4-5.0); DIRECT BILIRUBIN 0.1 mg/dL (0.0-0.2); MAGNESIUM 1.9 mg/dL (1.8-2.4); TOTAL BILIRUBIN 0.4 mg/dL (0.2-1.0); TOTAL PROTEIN 6.4 g/dL (6.4-8.2)
[2021-02-09] MEDS ORDERED: FAMO-63 PO (01:40)
[2021-02-09 02:10] VITALS: BP 125/78
--- NOTE | 2021-02-09 02:26 | EKG ---
[address] [address] Test Date: 2021-02-08 Test Time: 23:34:17 Pat Name: JAMEY CONTI Department: Room: Gender: M [employer] Supervisor: MAURICE : 1970 Requested By: HARPREET RUIZ Order Number: [id number] Reading MD: Measurements Intervals [place] Rate: 72 P: 40 LA: 162 QRS: -43 QRSD: 80 T: 112 QT: 408 QTc: 448 Interpretive Statements SINUS RHYTHM ABNORMAL LEFT AXIS DEVIATION LEFT ANTERIOR FASCICULAR BLOCK QRS(T) CONTOUR ABNORMALITY CONSIDER ANTEROSEPTAL MYOCARDIAL DAMAGE T ABNORMALITY IN ANTERIOR LEADS ABNORMAL ECG RI6.02 No previous ECG available for comparison
[2021-02-09] MEDS ORDERED: ANTI-COAG MONITOR BY PHARMACY. MC PRN (02:45)
[2021-02-09] MEDS ORDERED: APIXABAN 5 MG TABLET. PO SCH (03:00)
[2021-02-09] MEDS ORDERED: ALBUTEROL SULFATE 8GM INHALER. INH ONE (03:00)
[2021-02-09] MEDS ORDERED: KETOROLAC 30 MG/ML VIAL. IVP ONE (03:00)
[2021-02-09 20:13] LABS: THYROID STIM HORMONE (TSH) 1.035 uIU/mL (0.358-3.740)
== END 2021-02-09 02:10 | disposition home or self-care (01) ==
LOC: ER 22:25 → EDBD 22:25 → ER 02-09 02:10
DX: B34.9 Viral infection, unspecified (principal); E86.0 Dehydration; R79.89 Other specified abnormal findings of blood chemistry; K21.9 Gastro-esophageal reflux disease without esophagitis; E11.65 Type 2 diabetes mellitus with hyperglycemia; I10 Essential (primary) hypertension
CPT/HCPCS: 36415; 71045; 80048; 80061; 80076; 80307; 81001; 82550; 83690; 83735; 83880; 84443; 84484; 85025; 93005; 96360; 99285; J7030

== ENCOUNTER 2021-02-16 15:52 | Inpatient (IN) | payer MEDICAID ==
[~2021-02-16] VITALS: Ht 182.9 cm; Wt 57.1 kg
[~2021-02-16 15:52] MED LIST changes: +FAMO-63 PO
[2021-02-16] MEDS ORDERED: IOHEXOL 300 MG/ML 75 ML VIAL. IV ONE (16:45)
[2021-02-16] MEDS ORDERED: IV NORMAL SALINE 1,000ML 1,000 ML IV ONE (16:45)
[2021-02-16] MEDS ORDERED: ONDANSETRON PF 4 MG/2 ML VIAL. IVP ONE (16:45)
--- NOTE | 2021-02-16 16:46 | PHYS DOC ---
Past History Past Medical History: Cancer, Constipation, Diabetes, Renal Disease, Other Additional Past Medical Histor: bowel obstruction; right uteral cancer; abd hernia (ADEBAYO REILLY APRN) Past Surgical History: Cancer Surgery, Other Additional Past Surgical Histo: RIGHT KIDNEY REMOVAL, RIGHT HAND SURGERY (ADEBAYO REILLY APRN) Alcohol Use: None Drug Use: None (ADEBAYO REILLY APRN) General Adult EDM: Chief Complaint: MULTIPLE COMPLAINTS HPI: HPI: Patient is a 50-year-old male being seen in the ER for epigastric abdominal. With nausea and vomiting that started 1 week ago. Patient rates pain 10 out of 10. He cannot describe the pain. It does not radiate anywhere. Patient reports vomiting 5 times today. Patient was seen last week in the ER for similar complaints and was discharged home with Pepcid. Patient has a history of diabetes type 2, hernia, renal cancer with a right nephrectomy, and bowel obstruction. Patient denies diarrhea, blood in his stools or vomit, fevers. (ADEBAYO REILLY APRN) Review of Systems: Review of Systems: 14 body systems of the review of systems have been reviewed. See HPI for pertinent positive and negative responses, otherwise all other systems are negative, nonpertinent or noncontributory (ADEBAYO REILLY APRN) Allergies: Allergies: Allergies Coded Allergies Type Severity Reaction Last Updated Verified Penicillins Allergy Intermediate 02/16/21 Yes I S O L A T I O N *CONTACT* Allergy Unknown 02/16/21 Yes (ADEBAYO REILLY APRN) Physical Exam: PE: Constitutional: Well developed, well nourished, no acute distress, non-toxic appearance. [] HENT: Normocephalic, atraumatic, bilateral external ears normal, oropharynx moist, no oral exudates, nose normal. [] Eyes: PERRL, EOMI, conjunctiva normal, no discharge. [] Neck: Normal range of motion, no stridor Cardiovascular:Heart rate tachycardic rhythm, no murmur [] Lungs & Thorax: Bilateral breath sounds clear to auscultation [] Abdomen: Bowel sounds normal, soft, no masses, no pulsatile masses, epigastric pain with palpation. [] Skin: Warm, dry, no erythema, no rash. [] Back: Normal range of motion Extremities: No tenderness, no cyanosis, no clubbing, ROM intact, no edema. [] Neurologic: Alert and oriented X 3, normal motor function, normal sensory func tion, no focal deficits noted. [] Psychologic: Affect normal, judgement normal, mood normal. [] (ADEBAYO REILLY APRN) Current Patient Data: Labs: Laboratory Tests Test 02/16/21 16:24 02/16/21 16:38 02/16/21 16:39 Bedside Venous pH 7.55 Bedside Venous pCO2 36 mmHg Bedside Venous pO2 94 mmHg Venous Blood HCO3 32 mmol/L POC Venous O2 Saturation (Pablo) 98 % Bedside FiO2 21 White Blood Count 11.5 x10^3/uL Red Blood Count 4.44 x10^6/uL Hemoglobin 15.2 g/dL Hematocrit 44.9 % Mean Corpuscular Volume 101 fL Mean Corpuscular Hemoglobin 34 pg Mean Corpuscular Hemoglobin Concent 34 g/dL Red Cell Distribution Width 13.7 % Platelet Count 298 x10^3/uL Neutrophils (%) (Auto) 73 % Lymphocytes (%) (Auto) 20 % Monocytes (%) (Auto) 6 % Eosinophils (%) (Auto) 0 % Basophils (%) (Auto) 1 % Neutrophils # (Auto) 8.3 x10^3uL Lymphocytes # (Auto) 2.3 x10^3/uL Monocytes # (Auto) 0.7 x10^3/uL Eosinophils # (Auto) 0.0 x10^3/uL Basophils # (Auto) 0.1 x10^3/uL Sodium Level 133 mmol/L Potassium Level 3.7 mmol/L Chloride Level 79 mmol/L Carbon Dioxide Level 29 mmol/L Anion Gap 25 Blood Urea Nitrogen 30 mg/dL Creatinine 2.7 mg/dL Estimated GFR (Cockcroft-Gault) 30.4 BUN/Creatinine Ratio 11 Glucose Level 293 mg/dL Calcium Level 11.1 mg/dL Total Bilirubin 0.7 mg/dL Aspartate Amino Transf (AST/SGOT) 231 U/L Alanine Aminotransferase (ALT/SGPT) 293 U/L Alkaline Phosphatase 178 U/L Troponin I Quantitative < 0.017 ng/mL Total Protein 6.3 g/dL Albumin 3.3 g/dL Albumin/Globulin Ratio 1.1 Lipase 53 U/L Acetone Level Sm pos Glucose (Fingerstick) 348 mg/dL Current Medications Medications (Trade) Dose Ordered Sig/Sakshi Route PRN Reason Start Time Stop Time Status Last Admin Dose Admin Sodium Chloride 1,000 ml @ 1,000 mls/hr 1X ONCE IV 02/16/21 16:45 02/16/21 17:44 DC 02/16/21 16:45 Ondansetron HCl (Zofran) 4 mg 1X ONCE IVP 02/16/21 16:45 02/16/21 16:46 DC 02/16/21 16:45 Iohexol (Omnipaque 300 Mg/ml) 75 ml 1X ONCE IV 02/16/21 16:45 02/16/21 16:46 DC Fentanyl Citrate (Fentanyl 2ml Vial) 50 mcg 1X ONCE IVP 02/16/21 18:15 02/16/21 18:16 DC 02/16/21 18:12 Vital Signs: Vital Signs Date Time Temp Pulse Resp B/P (MAP) Pulse Ox O2 Delivery O2 Flow Rate FiO2 02/16/21 16:32 98.4 103 25 95/70 95 Room Air (ADEBAYO REILLY LINE PATROLLER) EKG: EKG: [] EKG performed by ER staff at 1626 shows sinus tach, no STEMI as read by Dr. Alvarez at 1631. (ADEBAYO REILLY LINE PATROLLER) Radiology/Procedures: Radiology/Procedures: PROCEDURE: CT ABDOMEN PELVIS WO CONTRAST CT ABDOMEN+PELVIS WO History: Reason: abd pain, right nephrectomy due to cancer / Spl. Instructions: / History: Technique: Noncontrast examination of the abdomen and pelvis. Coronal and sagittal reconstructions were performed. Exposure: One or more of the following individualized dose reduction techniques were utilized for this examination: 1. Automated exposure control 2. Adjustment of the mA and/or kV according to patient size 3. Use of iterative reconstruction technique. Comparison: October 19, 2020 Findings: Lower chest: Mild linear right basilar atelectasis. Distal esophageal wall thickening. Abdomen and pelvis: The liver is enlarged. The spleen, left adrenal gland, and pancreas are unremarkable. Layering increased density within the gallbladder, may represent sludge. Prior right nephrectomy. No left renal calculus or hydronephrosis. Mild urinary bladder wall thickening. Regions of apparent colonic wall thickening likely related to nondistention. No adjacent inflammatory changes. Normal appendix. No evidence of bowel obstruction. Transient small bowel gaseous distention within the right lower abdomen (series 2 image 103). No pneumatosis. No portal venous gas. No pneumoperitoneum. No pathologic lymphadenopathy. No ascites. Bones: No pathologic osseous lesions. Impression: 1. Moderate distal esophageal wall thickening, may represent esophagitis. 2. Mild urinary bladder wall thickening. Correlate for cystitis. 3. Hepatomegaly. 4. Layering increased density within the gallbladder, may represent gallbladder sludge. Electronically signed by: Santhosh Escalera DO (02/16/2021 5:16 PM) [facility] DICTATED AND SIGNED BY: SANTHOSH ESCALERA DO DATE: 02/16/211706 CC: ORION KRAFT DO; ADEBAYO REILLY APRN; GHAZALA LI MD ~MTH0 0 [] (ADEBAYO REILLY APRN) Heart Score: C/O Chest Pain: No Risk Factors: Risk Factors: DM, Current or recent (<one month) smoker, HTN, HLP, family history of CAD, obesity. Risk Scores: Score 0 - 3: 2.5% MACE over next 6 weeks - Discharge Home Score 4 - 6: 20.3% MACE over next 6 weeks - Admit for Clinical Observation Score 7 - 10: 72.7% MACE over next 6 weeks - Early Invasive Strategies (ADEBAYO REILLY APRN) Course & Med Decision Making: Course & Med Decision Making Pertinent Labs and Imaging studies reviewed. (See chart for details) Patient is a 50-year-old male being seen in the ER for abdominal pain with nausea and vomiting. Work-up in the ER consisted of blood work, urinalysis, CT scan of abdomen, EKG. CT scan of abdomen/pelvis had to be performed without contrast due to patient's elevated creatinine. Patient treated with nausea med ication and fluids. Patient is noted to have mild leukocytosis. Sodium 133. Chloride 79. Elevated BUN and creatinine. Elevated liver enzymes. Patient had to have acetone and elevated anion gap. Patient's blood sugar was 293. Patient's bicarb is elevated. Patient CT scan of abdomen shows esophagitis, gallbladder sludge. I discussed patient's case with Dr. Whitt and he agreed to admit the patient under his service for dehydration to telemetry floor. Per Dr. Whitt, patient be on clear liquid diet with normal saline at 75 mils an hour, pain medication and repeat chemistries ordered. Patient is educated on plan of care and is agreeable to it. Patient will be admitted at this time. Care transferred at this time 1830. (ADEBAYO REILLY APRN) Course & Med Decision Making I was the Attending physician on the above date of service of this patient. This patient was evaluated, examined, treated, and dispositioned from the emergency department by the mid-level practitioner. Although I was working at the time , no assistance was requested. Electronically signed, Orion Kraft DO (ORION KRAFT DO) Andres Disclaimer: Andres Disclaimer: This electronic medical record was generated, in whole or in part, using a voice recognition dictation system. (ADEBAYO REILLY APRN) Departure Departure: Impression: Primary Impression: Dehydration Disposition: ADMITTED INPATIENT Admitting Physician: Edouard Whitt (ADEBAYO REILLY APRN) Condition: STABLE Referrals: GHAZALA LI MD (PCP) ADEBAYO REILLY APRN Feb 16, 2021 16:46 ORION KRAFT DO Feb 17, 2021 08:14
[2021-02-16 17:14] LABS: BASO # 0.1 x10^3/uL (0.0-0.2); BASO % 1 % (0-3); EOS % 0 % (0-3); HEMATOCRIT 44.9 % (39.0-53.0); HEMOGLOBIN 15.2 g/dL (13.0-17.5); LYMPH # 2.3 x10^3/uL (1.0-4.8); LYMPH % 20 % (24-48); MEAN CORPUSCULAR HEMOGLOBIN 34 pg (25-35); MEAN CORPUSCULAR HGB CONC 34 g/dL (31-37); MEAN CORPUSCULAR VOLUME 101 fL (79-100); MONO # 0.7 x10^3/uL (0.0-1.1); MONO % 6 % (0-9); NEUT # 8.3 x10^3uL (1.8-7.7); NEUT % 73 % (31-73); PLATELET COUNT 298 x10^3/uL (140-400); RED BLOOD COUNT 4.44 x10^6/uL (4.30-5.70); RED CELL DISTRIBUTION WIDTH 13.7 % (11.5-14.5); WHITE BLOOD COUNT 11.5 x10^3/uL (4.0-11.0)
--- NOTE | 2021-02-16 17:19 | RAD ---
CT ABDOMEN+PELVIS WO History: Reason: abd pain, right nephrectomy due to cancer / Spl. Instructions: / History: Technique: Noncontrast examination of the abdomen and pelvis. Coronal and sagittal reconstructions we re performed. Exposure: One or more of the following individualized dose reduction techniques were utilized for thi s examination: 1. Automated exposure control 2. Adjustment of the mA and/or kV according to patient size 3. Use of iterative reconstruction technique. Comparison: October 19, 2020 Findings: Lower chest: Mild linear right basilar atelectasis. Distal esophageal wall thickening. Abdomen and pelvis: The liver is enlarged. The spleen, left adrenal gland, and pancreas are unremarka ble. Layering increased density within the gallbladder, may represent sludge. Prior right nephrectomy. No left renal calculus or hydronephrosis. Mild urinary bladder wall thickeni ng. Regions of apparent colonic wall thickening likely related to nondistention. No adjacent inflammatory changes. Normal appendix. No evidence of bowel obstruction. Transient small bowel gaseous distention within the right lower abdomen (series 2 image 103). No pneumatosis. No portal venous gas. No pneumo peritoneum. No pathologic lymphadenopathy. No ascites. Bones: No pathologic osseous lesions. Impression: 1. Moderate distal esophageal wall thickening, may represent esophagitis. 2. Mild urinary bladder wall thickening. Correlate for cystitis. 3. Hepatomegaly. 4. Layering increased density within the gallbladder, may represent gallbladder sludge. Electronically signed by: Santhosh Escalera DO (02/16/2021 5:16 PM) [facility]
[2021-02-16 17:29] LABS: CALCIUM 11.1 mg/dL (8.5-10.1); CREATININE 2.7 mg/dL (0.7-1.3); GFR 30.4; POTASSIUM 3.7 mmol/L (3.5-5.1)
[2021-02-16 17:36] LABS: ALBUMIN 3.3 g/dL (3.4-5.0); ALBUMIN/GLOBULIN RATIO 1.1 (1.0-1.7); TOTAL BILIRUBIN 0.7 mg/dL (0.2-1.0); TOTAL PROTEIN 6.3 g/dL (6.4-8.2)
[2021-02-16] MEDS ORDERED: HYDROmorphone PF 1 MG/ML DISP.SYRIN IVP ONE (18:30)
[2021-02-16 20:03] LABS: BACTERIA,URINE 0 /HPF (0-FEW); BILIRUBIN,URINE SMALL (NEG); CLARITY,URINE CLEAR; COLOR,URINE YELLOW; GLUCOSE,URINE >=1000 mg/dL (NEG); HYALINE CASTS, URINE OCC /HPF; NITRITE,URINE NEG (NEG); RBC,URINE 0 /HPF (0-2); UROBILINOGEN,URINE 0.2 mg/dL (0.2 mg/dL); WBC,URINE OCC /HPF (0-4)
[2021-02-16] MEDS: IV NORMAL SALINE 1,000ML 1,000 ML IV SCH (21:14)
[2021-02-16] MEDS: ONDANSETRON PF 4 MG/2 ML VIAL. IVP PRN (21:15)
[2021-02-16 21:35] VITALS: BP 123/81
[2021-02-17] VITALS (11 sets, daily range): BP systolic 92–144; BP diastolic 56–91
[2021-02-17] MEDS: ONDANSETRON PF 4 MG/2 ML VIAL. IVP PRN ×3 (05:15→17:25)
[2021-02-17] MEDS ORDERED: ONDANSETRON PF 4 MG/2 ML VIAL. IVP ONE (06:30)
[2021-02-17] MEDS: MAG HYDROX/AL HYDROX/SIMETH 30 ML ORAL.SUSP PO PRN ×3 (06:56→22:07)
[2021-02-17 07:12] LABS: ALBUMIN 2.9 g/dL (3.4-5.0); CALCIUM 9.1 mg/dL (8.5-10.1); POTASSIUM 3.5 mmol/L (3.5-5.1); TOTAL PROTEIN 5.9 g/dL (6.4-8.2)
[2021-02-17] MEDS ORDERED: DEXTROSE 50% 25 GM / 50ML DISP.SYRIN. IV PRN ×2 (08:15)
[2021-02-17] MEDS: IV NORMAL SALINE 1,000ML 1,000 ML IV SCH ×2 (08:29→17:23)
[2021-02-17] MEDS: INSULIN REGULAR VIAL 100 UNIT in IV NORMAL SALINE 100ML 100 ML IV PRN ×2 (09:01→17:22)
--- NOTE | 2021-02-17 10:04 | HP ---
ATTENDING PHYSICIAN: Dr. Whitt. CHIEF COMPLAINT: Nausea and weakness. HISTORY OF PRESENT ILLNESS: The patient is a 50-year-old gentleman who unfortunately looks a lot older. He has been sick for the last 5 days with nausea, vomiting, diarrhea, polyuria and polydipsia. Sugars were high, initially was 293, but repeat was up to 706, and repeat one this morning was 866 mg/dL. He is dry with a creatinine of 2.7 mg percent, BUN 30. His potassium is 3.5 mEq, sodium is concomitantly low at 127 due to hyponatremia. He has uncontrolled diabetes. He is admitted to the ICU for insulin drip and glucose stabilizer protocol. PAST MEDICAL HISTORY: Significant for chronic alcoholism. He supposedly quit drinking 6 months ago. He has pancreatic insufficiency leading to diabetes. He has been diabetic for 5 years. Unfortunately, he has not been compliant with his meds. He also is a smoker, a pack of cigarettes daily. He is disabled. CURRENT MEDICATIONS: Reviewed. He was taking insulin regular 20 units t.i.d. with meals, but he has been noncompliant; Neurontin, famotidine and Coreg 6.25 mg b.i.d. ALLERGIES: HE HAS ALLERGIES TO IODINE CONTRAST. SOCIAL HISTORY: Smoking history as noted, current smoker. Drinking history, heavy drinking until he says 6 months ago; I suspect he is still drinking. FAMILY HISTORY: Unobtainable. REVIEW OF SYSTEMS: Significant for the 5-day history of nausea, vomiting, dehydration, polyuria, polydipsia and generalized weakness with poor appetite. He has no COVID exposures or fevers. PHYSICAL EXAMINATION: GENERAL: When I saw him, this is a thin, cachectic gentleman who appears chronically ill. VITAL SIGNS: Initial blood pressure was 97/66 mmHg, pulse 109 per minute. He was afebrile, oxygen saturation 96% on room air. HEENT: Head is without trauma. Pupils are reactive. Sclerae are nonicteric. The oropharynx clear. Mucous membranes dry. NECK: Supple. LUNGS: Shallow respirations. CARDIOVASCULAR: Showed distant heart tones. No gallops. ABDOMEN: Soft, scaphoid. No organomegaly. No guarding. EXTREMITIES: Without edema. NEUROLOGIC FINDINGS: Flat affect, focally intact. Speech is fluent. SKIN: Warm and dry. PERTINENT LABORATORY STUDIES: The admission hemoglobin 15.2 g/dL with a white count 11,500. His chemistry showed a blood sugar this morning of over 800. His creatinine is 2 mg percent. The anion gap is increased at 28, bicarbonate is 22, transaminases are elevated, bilirubin is 1.0. ASSESSMENT: 1. This 50-year-old gentleman has uncontrolled diabetes. 2. Early diabetic ketoacidosis. 3. Profound dehydration. 4. Chronic kidney disease due to dehydration and vasomotor nephropathy. 5. Chronic alcoholism. 6. Chronic obstructive pulmonary disease. PLAN: 1. Admit to the ICU. 2. Glucose stabilizer protocol with insulin drip. 3. Serial chemistries. 4. IV hydration. 5. Pain and nausea control. LARISA/TOYA DR: Poly TID: [id number] CC: GHAZALA LI MD
[2021-02-17] MEDS ORDERED: LIDO:MAALOX 1:1 20 ML SINGLE DOSE. PO ONE (10:15)
[2021-02-17 12:50] LABS: ALBUMIN 3.1 g/dL (3.4-5.0); ALBUMIN/GLOBULIN RATIO 0.9 (1.0-1.7); CALCIUM 9.3 mg/dL (8.5-10.1); CREATININE 3.1 mg/dL (0.7-1.3); GFR 25.9; TOTAL BILIRUBIN 0.7 mg/dL (0.2-1.0); TOTAL PROTEIN 6.4 g/dL (6.4-8.2)
[2021-02-17 13:08] LABS: POTASSIUM 2.5 mmol/L (3.5-5.1)
[2021-02-17] MEDS: POTASSIUM CHLORIDE 20 MEQ TABLET.ER. PO SCH ×3 (13:55→17:42)
[2021-02-17] MEDS ORDERED: ASPI-630 PO (19:58)
[2021-02-17 21:25] LABS: ALBUMIN 2.6 g/dL (3.4-5.0); ALBUMIN/GLOBULIN RATIO 0.9 (1.0-1.7); CALCIUM 8.4 mg/dL (8.5-10.1); CREATININE 2.5 mg/dL (0.7-1.3); GFR 33.2; POTASSIUM 3.1 mmol/L (3.5-5.1); TOTAL BILIRUBIN 0.3 mg/dL (0.2-1.0); TOTAL PROTEIN 5.6 g/dL (6.4-8.2)
[2021-02-17] MEDS ORDERED: ONDANSETRON PF 4 MG/2 ML VIAL. ONE (23:52)
[2021-02-18] VITALS (12 sets, daily range): BP systolic 101–145; BP diastolic 57–101
[2021-02-18] MEDS: ONDANSETRON PF 4 MG/2 ML VIAL. IVP PRN ×3 (00:02→17:02)
[2021-02-18] MEDS: IV NORMAL SALINE 1,000ML 1,000 ML IV SCH ×2 (03:49→14:20)
[2021-02-18 06:25] LABS: ALBUMIN 2.6 g/dL (3.4-5.0); ALBUMIN/GLOBULIN RATIO 0.9 (1.0-1.7); CALCIUM 8.2 mg/dL (8.5-10.1); CREATININE 2.1 mg/dL (0.7-1.3); GFR 40.7; TOTAL BILIRUBIN 0.4 mg/dL (0.2-1.0); TOTAL PROTEIN 5.6 g/dL (6.4-8.2)
[2021-02-18 06:35] LABS: POTASSIUM 2.7 mmol/L (3.5-5.1)
[2021-02-18] MEDS: POTASSIUM CHLORIDE 20 MEQ TABLET.ER. PO SCH ×2 (07:20→08:49)
[2021-02-18] MEDS: MAG HYDROX/AL HYDROX/SIMETH 30 ML ORAL.SUSP PO PRN ×3 (08:54→17:03)
[2021-02-18] MEDS: INSULIN LISPRO 300 UNITS/3 ML VIAL. SQ SCH ×2 (13:40→17:00)
[2021-02-18] MEDS ORDERED: PANTOPRAZOLE IV 40 MG VIAL. IVP ONE (13:45)
[2021-02-18 14:08] LABS: CALCIUM 8.3 mg/dL (8.5-10.1); CREATININE 1.8 mg/dL (0.7-1.3); GFR 48.6; POTASSIUM 3.5 mmol/L (3.5-5.1)
[2021-02-18 14:23] LABS: ALBUMIN 2.7 g/dL (3.4-5.0); ALBUMIN/GLOBULIN RATIO 0.8 (1.0-1.7); TOTAL BILIRUBIN 0.6 mg/dL (0.2-1.0); TOTAL PROTEIN 5.9 g/dL (6.4-8.2)
[2021-02-18] MEDS ORDERED: INSULIN LISPRO 300 UNITS/3 ML VIAL. SQ SCH (17:00)
[2021-02-18] MEDS: GABAPENTIN 300 MG CAPSULE. PO SCH (20:09)
[2021-02-18] MEDS: CARVEDILOL 6.25 MG TABLET PO SCH (20:10)
--- NOTE | 2021-02-18 22:24 | PN ---
DATE: 02/18/2021 SUBJECTIVE: The patient is a 50-year-old -[place]aur[place] male patient, who was admitted through the Emergency Room of [facility] with multiple complaints including epigastric abdominal pain associated with nausea and vomiting that started one week ago. He rates his pain at about 10/10 in severity. He describes the pain as a burning sensation in the retrosternal area. He apparently has been unable to keep things and he apparently had similar complaints before and was discharged with Pepcid. He was extensively investigated in the Emergency Room and his lab work initially showed that he was in diabetic ketoacidosis. His blood sugar was 706, has dilutional hyponatremia and his anion gap was 28. He was started on a DKA protocol and did very well. His anion gap is down to 6, BUN 21, creatinine 2.1 that is his baseline as he is known to have chronic kidney disease. He had elevated liver enzymes; however, his total bilirubin is normal. CT scan of the abdomen showed that the patient has a moderate distal esophageal wall thickening, may represent esophagitis. He has also hepatomegaly and layering increased density within the gallbladder, may represent some gallbladder sludge. The patient did very well and has responded to insulin drip and IV fluid and in fact, his anion gap has closed from 28, in fact his anion gap was 36, down to 6 and his serum sodium has normalized to 136. His creatinine is stable and is known to have chronic kidney disease and status post nephrectomy. PHYSICAL EXAMINATION: GENERAL: When I examined him this afternoon, he was resting slightly propped up in bed, in no apparent respiratory distress. There is no pallor, jaundice, cyanosis or thyromegaly. No jugular venous distention. No limb edema. VITAL SIGNS: Her heart rate was 100, blood pressure is 101/57, temperature was 97.8, respiratory rate was 19 and oxygen saturation was 92% on 2 liters of oxygen. HEAD, EYES, EARS, NOSE, AND THROAT: Normocephalic, atraumatic. NECK: Supple. HEART: Normal first and second heart sounds. No gallop, rub or murmur. CHEST: Clear to auscultation. No crepitation or rhonchi. ABDOMEN: Distended, soft, nontender. NEUROLOGIC: He was awake, alert, responding appropriately. Cranial nerves intact. He moves extremities without difficulty. His intake over the last 24 hours was 600. No output was recorded. LABORATORY DATA: His lab work this morning showed a serum sodium 136, potassium 2.7, chloride 94, bicarbonate 36, anion gap of 6, BUN 21, and creatinine 2.1. Estimated GFR was 40 mL per minute. His glucose 135, calcium was 8.2. Total bilirubin is normal. AST, ALT, alkaline phosphatase are elevated, although they are trending down. His total protein was 5.6, albumin 2.6. ASSESSMENT AND PLAN: 1. Diabetic ketoacidosis, resolved. His anion gap came down from 38-6. 2. Dilutional hyponatremia, chronic. 3. Chronic kidney disease with dehydration. 4. Chronic alcoholism. 5. Chronic obstructive pulmonary disease. 6. Chronic kidney disease. The patient has also what seemed to be esophagitis with marked thickening of the distal of esophagus. 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 He has also sludge in his gallbladder. If he continued to complain of pain, we might have to do hepatobiliary scan as his gallbladder might need to come out. TABITHA DR: Edwige TID: [id number]
[2021-02-19] VITALS (7 sets, daily range): BP systolic 107–134; BP diastolic 67–91
[2021-02-19] MEDS: IV NORMAL SALINE 1,000ML 1,000 ML IV SCH ×2 (00:09→11:00)
[2021-02-19 07:05] LABS: HEMATOCRIT 37.7 % (39.0-53.0); HEMOGLOBIN 12.8 g/dL (13.0-17.5); RED BLOOD COUNT 3.65 x10^6/uL (4.30-5.70); RED CELL DISTRIBUTION WIDTH 13.9 % (11.5-14.5)
[2021-02-19 07:22] LABS: ALBUMIN 2.4 g/dL (3.4-5.0); ALBUMIN/GLOBULIN RATIO 0.8 (1.0-1.7); CALCIUM 7.8 mg/dL (8.5-10.1); CREATININE 1.4 mg/dL (0.7-1.3); GFR 64.9; POTASSIUM 4.2 mmol/L (3.5-5.1); TOTAL BILIRUBIN 0.5 mg/dL (0.2-1.0); TOTAL PROTEIN 5.4 g/dL (6.4-8.2)
[2021-02-19] MEDS ORDERED: PANTOPRAZOLE IV 40 MG VIAL. IVP SCH ×2 (07:30→21:00)
[2021-02-19] MEDS: GABAPENTIN 300 MG CAPSULE. PO SCH ×2 (07:59→14:00)
[2021-02-19] MEDS: CARVEDILOL 6.25 MG TABLET PO SCH (08:00)
[2021-02-19] MEDS: INSULIN LISPRO 300 UNITS/3 ML VIAL. SQ SCH ×2 (08:10→12:59)
[2021-02-19] MEDS ORDERED: MAG HYDROX/AL HYDROX/SIMETH 30 ML ORAL.SUSP PO PRN (11:45)
[2021-02-19] MEDS ORDERED: METOCLOPRAMIDE 5 MG TABLET PO SCH (12:00)
[2021-02-19] MEDS ORDERED: IPRATRPIUM/ALBUTEROL 0.5/2.5MG 3 ML NEBU. NEB SCH (12:00)
[2021-02-19] MEDS ORDERED: HYDROcodone/APAP 7.5/325MG 1 TAB TABLET PO PRN (12:45)
[2021-02-19] MEDS ORDERED: INSU100I13 SQ (13:55)
[2021-02-19] MEDS ORDERED: MAG-115 PO (13:57)
[2021-02-19] MEDS ORDERED: PANT40TA3 PO (13:57)
[2021-02-19] MEDS ORDERED: METO5TAB55 PO (13:57)
[2021-02-19] MEDS ORDERED: OXYC5TAB4 PO (13:59)
--- NOTE | 2021-02-19 19:57 | DS ---
DATE OF DISCHARGE: 02/19/2021 HOSPITAL COURSE: The patient is a 50-year-old -[place] male patient who was admitted with epigastric abdominal pain associated with nausea and vomiting. He rated his pain as about a 10/10 in severity. He was extensively investigated and was found to be in diabetic ketoacidosis. CT scan of the abdomen showed that he has thickening of the distal esophagus consistent with esophagitis. He was treated with diabetic ketoacidosis protocol, was started also on Protonix and IV fluid and he did actually very well. His blood sugar was well controlled. His kidney function has dramatically improved from a creatinine of 3.1, down to 1.4, and his BUN came down from 35 to 16. The patient continued to have a burning sensation in the epigastric area, so we treated with Protonix and I discontinued his Pepcid and also treated him with Mylanta and as he remained hemodynamically stable, afebrile with blood sugar reasonably controlled, a decision was made to discharge him home to continue on his NovoLog and Lantus insulin, Pepcid as well as Mylanta. PHYSICAL EXAMINATION: GENERAL: When I saw him this afternoon, he looked well and was clearly in no apparent respiratory distress. He was somewhat pale, but not jaundiced or cyanosed, no lymphadenopathy, no thyromegaly, no jugular venous distention. No limb edema. VITAL SIGNS: Heart rate was 75, blood pressure 114/82, temperature was 97.5, respiratory rate was 19 and oxygen saturation was 99%. HEAD, EYES, EARS, NOSE, AND THROAT: Normocephalic, atraumatic. NECK: Supple. HEART: Showed normal first and second sounds, no gallop, rub or murmur. CHEST: Clear to auscultation. No crepitation or rhonchi. ABDOMEN: Distended, soft, nontender. NEUROLOGIC: He was grossly intact. LABORATORY DATA: This morning showed a white cell count 9000, hemoglobin 13, hematocrit 38, MCV 103 and platelet count of 173,000. Serum sodium was 134, potassium 3.5, chloride 91, bicarbonate 38, anion gap of 5, BUN 21, creatinine 1.4. Estimated GFR was 65 mL per minute. Glucose was 137, calcium was 7.8. Total bilirubin is normal. AST, ALT, alkaline phosphatase were normal. Total protein 5.4, albumin was 2.4. DISCHARGE MEDICATIONS: He was discharged home to continue on Lantus insulin 20 units at bedtime, Mylanta 30 mL p.o. q.4 hourly as needed, metoclopramide 5 mg before meals and bedtime, oxycodone 5 mg every 6 hours and Protonix 40 mg daily. He should continue on carvedilol 6.25 mg twice a day, gabapentin 300 mg 3 times a day, insulin lispro 20 units before meals. FINAL DISCHARGE DIAGNOSES: 1. Diabetic ketoacidosis, resolved. His anion gap is down to 5. 2. Dilutional hyponatremia, resolved. 3. Chronic kidney disease with dehydration. 4. Acute on chronic kidney injury, improved. His creatinine came down from 3.1 to 1.4. 5. Chronic obstructive pulmonary disease. 6. Severe gastroesophageal reflux disease. The patient was advised not to eat for at least 3 hours before he goes to bed. He should elevate his bed. Avoid alcohol and nicotine. Should follow with his primary care physician for the physician to arrange for him to have upper GI endoscopy. IVANA DR: Edwige TID: [id number]
[2021-02-19] MEDS ORDERED: INSULIN GLARGINE SYRINGE. SQ SCH (21:00)
--- NOTE | 2021-02-19 21:45 | PN ---
DATE: 02/19/2021 SUBJECTIVE: The patient is resting, slightly propped up in bed, in no apparent respiratory distress. He is awake, alert, continued to complain of acid reflux. He is on a clear liquid. Unfortunately his blood sugar has risen dramatically this morning; however, his kidney function has improved with a creatinine that came down from 3.1-1.4. I explained to him that he needs to be on Lantus and that even his blood sugar was normal in the morning, he is covering the food, not the number. I have also started him on Protonix. We will continue for another 24 hours and should be able to be discharged home tomorrow. I will start him on Lantus insulin 25 units overnight and in fact, I explained all this to him before. PHYSICAL EXAMINATION: GENERAL: When I examined him, he looked well and was clearly in no apparent respiratory distress. No pallor, jaundice, cyanosis or thyromegaly. No jugular venous distention. No limb edema. VITAL SIGNS: Her heart rate was 75, blood pressure is 114/82, temperature was 97.5, respiratory rate was 19 and oxygen saturation was 99% on room air. The rest of clinical exam stable. His intake over the last 24 hours was 2500, output was 2200. LABORATORY DATA: As of this morning, his white cell count was 9000, hemoglobin 12.8, hematocrit 37, MCV 103 and platelet count of 173,000. Serum sodium was 130, potassium 4.2, chloride 95, bicarbonate 30, anion gap of 5, BUN 16, creatinine 1.4. Estimated GFR was 65 mL per minute. His glucose was 437, calcium was 7.8. Total bilirubin is normal. AST, ALT, alkaline phosphatase slightly elevated. Total protein was 5.4 and albumin was 2.4. ASSESSMENT: 1. Diabetic ketoacidosis, resolving. His anion gap has normalized and this morning it was only 5. 2. Acute kidney injury on chronic kidney disease, improved. His creatinine came down from 3.1-1.4 and his BUN came down from 35-16. 3. Chronic kidney disease, status post nephrectomy. 4. Chronic alcoholism. 5. Chronic obstructive pulmonary disease. 6. Hyponatremia, likely dilutional. PLAN: My plan is to continue with IV fluid. I will start him on Lantus insulin overnight and hopefully, we can discharge him home tomorrow. AMM/EKT DR: Edwige TID: [id number]
== END 2021-02-19 15:15 | disposition home or self-care (01) | DRG 637 ==
LOC: ER 15:52 → 1 SOUTH 19:19 → ICU 02-17 08:04
PROVIDERS: ADMIT Hospitalist; ATTEND Hospitalist
DX: E11.10 Type 2 diabetes mellitus with ketoacidosis without coma (principal); N17.0 Acute kidney failure with tubular necrosis; K56.609 Unspecified intestinal obstruction, unspecified as to partial versus complete obstruction; E87.1 Hypo-osmolality and hyponatremia; E86.0 Dehydration; E11.22 Type 2 diabetes mellitus with diabetic chronic kidney disease; F17.210 Nicotine dependence, cigarettes, uncomplicated; F10.20 Alcohol dependence, uncomplicated; K21.9 Gastro-esophageal reflux disease without esophagitis; Z20.822 Contact with and (suspected) exposure to COVID-19; J44.9 Chronic obstructive pulmonary disease, unspecified; N18.9 Chronic kidney disease, unspecified; Z90.5 Acquired absence of kidney; Z85.528 Personal history of other malignant neoplasm of kidney; Z91.14 Patient's other noncompliance with medication regimen; Z88.0 Allergy status to penicillin; Z91.041 Radiographic dye allergy status
CPT/HCPCS: 36415; 74176; 80053; 81001; 82010; 82803; 82947; 83690; 84484; 85025; 85027; 87426; 96374; 96375; C9113; J1170; J1815; J2405; J3010; U0003; 99285-25; J7030

== ENCOUNTER → 2021-06-09 | Outpatient (CLI) | payer MEDICAID ==
[2021-02-19 14:25] VITALS: BP 108/72
[~2021-06-09] MED LIST changes: +ACETAMINOPHEN 325 MG TABLET PO PRN; +ASPI-630 PO; -CYCL-331 PO; +CYCL10TA19 PO; +INSU100I13 SQ; +MAG-115 PO; +METO5TAB55 PO; +OXYC5TAB4 PO; +PANT40TA3 PO; +diphenhydrAMINE ORAL ELIXIR 12.5 MG/5 ML ML PO PRN
[2021-06-09 16:25] LABS: BASO # 0.1 x10^3/uL (0.0-0.2); BASO % 1 % (0-3); EOS % 1 % (0-3); HEMATOCRIT 34.9 % (39.0-53.0); HEMOGLOBIN 11.2 g/dL (13.0-17.5); LYMPH # 2.6 x10^3/uL (1.0-4.8); LYMPH % 37 % (24-48); MEAN CORPUSCULAR HEMOGLOBIN 25 pg (25-35); MEAN CORPUSCULAR HGB CONC 32 g/dL (31-37); MEAN CORPUSCULAR VOLUME 78 fL (79-100); MONO # 0.5 x10^3/uL (0.0-1.1); MONO % 8 % (0-9); NEUT # 3.7 x10^3uL (1.8-7.7); NEUT % 53 % (31-73); PLATELET COUNT 378 x10^3/uL (140-400); RED BLOOD COUNT 4.48 x10^6/uL (4.30-5.70); RED CELL DISTRIBUTION WIDTH 31.3 % (11.5-14.5); WHITE BLOOD COUNT 6.9 x10^3/uL (4.0-11.0)
[2021-06-09 17:55] LABS: ANISOCYTOSIS MOD; PLT ESTIMATE ADEQUATE (ADEQUATE)
== END | disposition home or self-care (01) ==
LOC: OPINF 15:44
PROVIDERS: ATTEND Family Medicine
DX: D64.9 Anemia, unspecified (principal); J44.9 Chronic obstructive pulmonary disease, unspecified; I12.9 Hypertensive chronic kidney disease with stage 1 through stage 4 chronic kidney disease, or unspecified chronic kidney disease; E11.22 Type 2 diabetes mellitus with diabetic chronic kidney disease; N18.9 Chronic kidney disease, unspecified; K21.9 Gastro-esophageal reflux disease without esophagitis; Z87.891 Personal history of nicotine dependence
CPT/HCPCS: 36415; 36591; 36592; 85025

== ENCOUNTER → 2021-07-04 | Emergency (ER) | payer MEDICAID ==
[~2021-07-04] VITALS: Ht 182.9 cm; Wt 57.1 kg
[~2021-07-04] MED LIST changes: -ACETAMINOPHEN 325 MG TABLET PO PRN; +ACETAMINOPHEN 500 MG TABLET PO ONE; +FAMOTIDINE 20 MG/2 ML VIAL IVP ONE; +IV NORMAL SALINE 100ML 100 ML ONE; +IV NORMAL SALINE 500ML 500 ML IV ONE; +IV RINGERS SOLUTION,LACTATED 1,000 ML IV ONE; +LIDO:MAALOX 1:1 20 ML SINGLE DOSE. ONE; +LIDO:MAALOX 1:1 20 ML SINGLE DOSE. PO ONE; +ONDANSETRON PF 4 MG/2 ML VIAL. IVP ONE; -diphenhydrAMINE ORAL ELIXIR 12.5 MG/5 ML ML PO PRN
--- NOTE | 2021-07-04 23:42 | PHYS DOC ---
Past History Past Medical History: Cancer, Constipation, Diabetes, Renal Disease, Other Additional Past Medical Histor: bowel obstruction; right uteral cancer; abd hernia Past Surgical History: Cancer Surgery, Other Additional Past Surgical Histo: RIGHT KIDNEY REMOVAL, RIGHT HAND SURGERY Alcohol Use: None Drug Use: None Adult General Chief Complaint Chief Complaint: NAUSEA/VOMITING/DIARRHEA HPI HPI Patient is a 51-year-old male with a past medical history of insulin-dependent diabetes who presents to the emergency department with a chief complaint of abdominal cramping, nausea and vomiting with urinary frequency for the last couple of days. Review of Systems Review of Systems Review of systems otherwise unremarkable except noted in HPI Allergies Allergies Allergies Coded Allergies Type Severity Reaction Last Updated Verified Penicillins Allergy Intermediate 02/16/21 Yes Physical Exam Physical Exam Constitutional: Well developed, well nourished, no acute distress, non-toxic appearance. [] HENT: Normocephalic, atraumatic, bilateral external ears normal, oropharynx moist, no oral exudates, nose normal. [] Eyes: PERRLA, EOMI, conjunctiva normal, no discharge. [] Neck: Normal range of motion, no tenderness, supple, no stridor. [] Cardiovascular:Heart rate regular rhythm, no murmur [] Lungs & Thorax: Bilateral breath sounds clear to auscultation [] Abdomen: soft, no tenderness, no masses, no pulsatile masses. [] Skin: Warm, dry, no erythema, no rash. [] Back: No tenderness, no CVA tenderness. [] Extremities: No tenderness, no cyanosis, no clubbing, ROM intact, no edema. [] Neurologic: Alert and oriented X 3, normal motor function, normal sensory function, no focal deficits noted. [] Psychologic: Affect normal, judgement normal, mood normal. [] Current Patient Data Vital Signs Vital Signs Date Time Temp Pulse Resp B/P (MAP) Pulse Ox O2 Delivery O2 Flow Rate FiO2 07/04/21 22:05 98.8 102 16 137/96 (110) 99 Room Air EKG EKG [] Radiology/Procedures Radiology/Procedures [] Heart Score C/O Chest Pain: No Risk Factors: Risk Factors: DM, Current or recent (<one month) smoker, HTN, HLP, family history of CAD, obesity. Risk Scores: Risk Factors: DM, Current or recent (<one month) smoker, HTN, HLP, family history of CAD, obesity. Course & Med Decision Making Course & Med Decision Making Patient is a 51-year-old male who presents with a chief complaint of hyperglycemia, nausea, vomiting and urinary frequency Vital signs notable for tachycardia. Physical exam noted above. Patient placed on the monitor with IV access established and IV fluid begun. Initial POC glucose too high to measure. EKG with a rate of 101, QRS of 82, QTc of 491, no STEMI. Troponin nonconcerning. Laboratory analysis notable for hyponatremia, that is corrected to about 138, hyperglycemia to over 800 with an anion gap metabolic acidemia, elevated creatinine Patient started on insulin and potassium as potassium 3.3. Continued on fluid and insulin. Had to replace potassium as it dropped to 2.9. Anion gap closing. Creatinine improving. Rest of patient's care and disposition handed off to day team [] Dragon Disclaimer Dragon Disclaimer This electronic medical record was generated, in whole or in part, using a voice recognition dictation system. Departure Departure: Impression: Primary Impression: Hyperosmolar hyperglycemic state (HHS) Disposition: 02 SHORT TERM HOSPITAL Condition: STABLE Referrals: GHAZALA LI MD (PCP) BERTRAM RIVAS MD Jul 04, 2021 23:42
[2021-07-05 00:03] LABS: BASO % 1 % (0-3); EOS % 0 % (0-3); HEMATOCRIT 40.4 % (39.0-53.0); LYMPH # 1.3 x10^3/uL (1.0-4.8); LYMPH % 14 % (24-48); MEAN CORPUSCULAR HEMOGLOBIN 29 pg (25-35); MEAN CORPUSCULAR HGB CONC 32 g/dL (31-37); MEAN CORPUSCULAR VOLUME 91 fL (79-100); MONO # 0.6 x10^3/uL (0.0-1.1); MONO % 6 % (0-9); NEUT # 6.9 x10^3uL (1.8-7.7); NEUT % 79 % (31-73); PLATELET COUNT 313 x10^3/uL (140-400); RED BLOOD COUNT 4.46 x10^6/uL (4.30-5.70); WHITE BLOOD COUNT 8.7 x10^3/uL (4.0-11.0)
[2021-07-05 00:17] LABS: CALCIUM 10.2 mg/dL (8.5-10.1); CREATININE 2.6 mg/dL (0.7-1.3); GFR 31.6; POTASSIUM 3.3 mmol/L (3.5-5.1)
[2021-07-05 00:20] LABS: ALBUMIN 3.7 g/dL (3.4-5.0); ALBUMIN/GLOBULIN RATIO 1.1 (1.0-1.7); TOTAL BILIRUBIN 0.6 mg/dL (0.2-1.0); TOTAL PROTEIN 7.1 g/dL (6.4-8.2)
[2021-07-05 00:33] LABS: BILIRUBIN,URINE NEG (NEG); CLARITY,URINE CLEAR; COLOR,URINE YELLOW; GLUCOSE,URINE >=1000 mg/dL (NEG)
[2021-07-05 00:34] LABS: BACTERIA,URINE 0 /HPF (0-FEW); NITRITE,URINE NEG (NEG); RBC,URINE 0 /HPF (0-2); SQUAMOUS EPITHELIAL CELL,UR OCC /LPF; UROBILINOGEN,URINE 0.2 mg/dL (0.2 mg/dL); WBC,URINE RARE /HPF (0-4)
[2021-07-05 00:44] LABS: ANISOCYTOSIS MOD; MICROCYTOSIS SLIGHT; PLT ESTIMATE ADEQUATE (ADEQUATE)
[2021-07-05] MEDS: POTASSIUM CHLORIDE 10MEQ 100 ML IV PRN ×2 (01:48→09:29)
[2021-07-05] MEDS: INSULIN REGULAR VIAL 100 UNIT in IV NORMAL SALINE 100ML 100 ML IV PRN ×2 (01:49→09:29)
--- NOTE | 2021-07-05 03:03 | RAD ---
XR CHEST 1V History: Chest pain Comparison: February 08, 2021 Findings: No consolidation or pleural effusion. Normal heart size. No pneumothorax. Impression: 1. No acute cardiopulmonary process. Electronically signed by: Santhosh Escalera DO (07/05/2021 3:00 AM) [facility]
--- NOTE | 2021-07-05 03:25 | EKG ---
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
[2021-07-05 03:55] LABS: CALCIUM 9.5 mg/dL (8.5-10.1); CREATININE 2.2 mg/dL (0.7-1.3); GFR 38.4
[2021-07-05 04:11] LABS: POTASSIUM 2.9 mmol/L (3.5-5.1)
[2021-07-05] MEDS: POTASSIUM CHLORIDE 20MEQ 100 ML IV SCH ×2 (05:06→06:30)
--- NOTE | 2021-07-05 08:15 | PHYS DOC ---
Past History Past Medical History: Cancer, Constipation, Diabetes, Renal Disease, Other Additional Past Medical Histor: bowel obstruction; right uteral cancer; abd hernia Past Surgical History: Cancer Surgery, Other Additional Past Surgical Histo: RIGHT KIDNEY REMOVAL, RIGHT HAND SURGERY Alcohol Use: None Drug Use: None Adult General Chief Complaint Chief Complaint: NAUSEA/VOMITING/DIARRHEA HPI HPI Patient is a 51 year old male who presents with nausea vomiting and dehydration with elevated anion gap. DKA Review of Systems Review of Systems Constitutional: Denies fever or chills Eyes: Denies change in visual acuity HENT: Denies Respiratory: Denies Cardiovascular: no chest pain GI: Denies abdominal pain, nausea, vomiting : Denies Musculoskeletal: Denies back pain or joint pain Integument: Denies rash Neurologic: c/o mild bitemporal headache All other systems were reviewed and found to be within normal limits, except as documented in this note. Current Medications Current Medications Current Medications Medications (Trade) Dose Ordered Sig/Sakshi Start Time Stop Time Status Last Admin Dose Admin Famotidine (Pepcid Vial) 20 mg 1X ONCE 07/05/21 07:00 07/05/21 07:01 DC 07/05/21 06:58 20 MG Insulin Human Regular 100 unit/ Sodium Chloride 101 ml @ 0 mls/hr CONT PRN PRN 07/05/21 01:15 07/05/21 01:49 16.1 MLS/HR Lactated Ringer's 1,000 ml @ 1,000 mls/hr 1X ONCE 07/05/21 05:00 07/05/21 05:59 DC 07/05/21 05:07 1,000 MLS/HR Multi-Ingredient Mouthwash/Gargle (Gi Cocktail) 20 ml STK-MED ONCE 07/05/21 00:48 07/05/21 00:48 DC Ondansetron HCl (Zofran) 4 mg 1X ONCE 07/05/21 07:00 07/05/21 07:01 DC 07/05/21 06:58 4 MG Potassium Chloride 100 ml @ 50 mls/hr Q2H 07/05/21 04:30 07/05/21 08:29 07/05/21 05:06 50 MLS/HR Sodium Chloride 500 ml @ 0 mls/hr 1X ONCE 07/05/21 07:00 07/05/21 07:01 DC 07/05/21 06:57 500 MLS/HR Allergies Allergies Allergies Coded Allergies Type Severity Reaction Last Updated Verified Penicillins Allergy Intermediate 02/16/21 Yes Physical Exam Physical Exam Constitutional: Well developed, well nourished, no acute distress, non-toxic appearance. HENT: Normocephalic, atraumatic Eyes: PERRLA, EOMI, conjunctiva normal Neck: Normal range of motion, no tenderness Cardiovascular:Heart rate regular rhythm Lungs & Thorax: Bilateral breath sounds Skin: Warm, dry, no erythema, no rash. Back: Normal ROM Extremities: No tenderness Neurologic: Alert and oriented X 3 Psychologic: Affect normal Current Patient Data Vital Signs Vital Signs Date Time Temp Pulse Resp B/P (MAP) Pulse Ox O2 Delivery O2 Flow Rate FiO2 07/04/21 22:05 98.8 102 16 137/96 (110) 99 Room Air Lab Results Laboratory Tests Test 07/04/21 23:48 07/04/21 23:55 07/05/21 01:35 07/05/21 03:18 White Blood Count 8.7 x10^3/uL (4.0-11.0) Red Blood Count 4.46 x10^6/uL (4.30-5.70) Hemoglobin 13.0 g/dL (13.0-17.5) Hematocrit 40.4 % (39.0-53.0) Mean Corpuscular Volume 91 fL (79-100) Mean Corpuscular Hemoglobin 29 pg (25-35) Mean Corpuscular Hemoglobin Concent 32 g/dL (31-37) Red Cell Distribution Width 33.0 % (11.5-14.5) H Platelet Count 313 x10^3/uL (140-400) Neutrophils (%) (Auto) 79 % (31-73) H Lymphocytes (%) (Auto) 14 % (24-48) L Monocytes (%) (Auto) 6 % (0-9) Eosinophils (%) (Auto) 0 % (0-3) Basophils (%) (Auto) 1 % (0-3) Neutrophils # (Auto) 6.9 x10^3uL (1.8-7.7) Lymphocytes # (Auto) 1.3 x10^3/uL (1.0-4.8) Monocytes # (Auto) 0.6 x10^3/uL (0.0-1.1) Eosinophils # (Auto) 0.0 x10^3/uL (0.0-0.7) Basophils # (Auto) 0.0 x10^3/uL (0.0-0.2) Platelet Estimate Adequate (ADEQUATE) Anisocytosis Mod Microcytosis Slight Sodium Level 127 mmol/L (136-145) L Potassium Level 3.3 mmol/L (3.5-5.1) L Chloride Level 70 mmol/L (98-107) L Carbon Dioxide Level 19 mmol/L (21-32) L Anion Gap 38 (6-14) H Blood Urea Nitrogen 42 mg/dL (8-26) H Creatinine 2.6 mg/dL (0.7-1.3) H Estimated GFR (Cockcroft-Gault) 31.6 BUN/Creatinine Ratio 16 (6-20) Glucose Level 866 mg/dL (70-99) *H Calcium Level 10.2 mg/dL (8.5-10.1) H Phosphorus Level 6.4 mg/dL (2.6-4.7) H Magnesium Level 2.4 mg/dL (1.8-2.4) Total Bilirubin 0.6 mg/dL (0.2-1.0) Aspartate Amino Transferase (AST) 88 U/L (15-37) H Alanine Aminotransferase (ALT) 120 U/L (16-63) H Alkaline Phosphatase 126 U/L (46-116) H Troponin I High Sensitivity 19 ng/L (4-75) Total Protein 7.1 g/dL (6.4-8.2) Albumin 3.7 g/dL (3.4-5.0) Albumin/Globulin Ratio 1.1 (1.0-1.7) Lipase 238 U/L (73-393) Urine Collection Type Void Urine Color Yellow Urine Clarity Clear Urine pH 5.0 Urine Specific [place] 1.015 Urine Protein Neg (NEG-TRACE) Urine Glucose (UA) >=1000 mg/dL (NEG) Urine Ketones (Stick) >=160 mg/dL (NEG) Urine Blood Neg (NEG) Urine Nitrite Neg (NEG) Urine Bilirubin Neg (NEG) Urine Urobilinogen Dipstick 0.2 mg/dL (0.2 mg/dL) Urine Leukocyte Esterase Neg (NEG) Urine RBC 0 /HPF (0-2) Urine WBC Rare /HPF (0-4) Urine Squamous Epithelial Cells Occ /LPF Urine Bacteria 0 /HPF (0-FEW) POC Venous pH 7.50 (7.32-7.42) H POC Venous pCO2 33 mmHg (41-51) L POC Venous pO2 104 mmHg (20-40) H Venous Blood HCO3 25 mmol/L (24-28) POC Venous O2 Saturation (Pablo) 99 % POC FiO2 21 Glucose (Fingerstick) 218 mg/dL (70-99) H Test 07/05/21 03:23 07/05/21 04:59 Sodium Level 134 mmol/L (136-145) L Potassium Level 2.9 mmol/L (3.5-5.1) *L Chloride Level 84 mmol/L (98-107) L Carbon Dioxide Level 28 mmol/L (21-32) Anion Gap 22 (6-14) H Blood Urea Nitrogen 33 mg/dL (8-26) H Creatinine 2.2 mg/dL (0.7-1.3) H Estimated GFR (Cockcroft-Gault) 38.4 Glucose Level 192 mg/dL (70-99) H Calcium Level 9.5 mg/dL (8.5-10.1) Glucose (Fingerstick) 113 mg/dL (70-99) H EKG EKG [] Radiology/Procedures Radiology/Procedures [] Heart Score C/O Chest Pain: No Risk Factors: Risk Factors: DM, Current or recent (<one month) smoker, HTN, HLP, family history of CAD, obesity. Risk Scores: Risk Factors: DM, Current or recent (<one month) smoker, HTN, HLP, family history of CAD, obesity. Course & Med Decision Making Course & Med Decision Making Pertinent Labs and Imaging studies reviewed. (See chart for details) 08:15: I assumed care of this patient at shift turnover from Dr. Lee. I did reexamine and reevaluate the patient as documented above. Currently, he endorses complete relief of nausea symptoms. He is requesting food. He has completed an IV potassium infusion. Anion gap was noted to be elevated and repeat BMP is currently being drawn. Patient has had 3 L of normal saline. Will reevaluate lab studies. 09:00: All results are reviewed. Patient did initially have elevated anion gap. Repeat BMP reveals that this has normalized. He is feeling much improved. He is stable for discharge home. I recommend he follow-up with his primary care doctor. Come back to the ER for any new or worsening symptoms. Dragon Disclaimer Dragon Disclaimer This electronic medical record was generated, in whole or in part, using a voice recognition dictation system. Departure Departure: Impression: Primary Impression: Hyperosmolar hyperglycemic state (HHS) Disposition: HOME / SELF CARE / HOMELESS Condition: GOOD Referrals: GHAZALA LI MD (PCP) Patient Instructions: Hyperglycemia KANNAN CRISTINA DO Jul 05, 2021 08:15
[2021-07-05 08:39] LABS: CALCIUM 8.7 mg/dL (8.5-10.1); CREATININE 1.5 mg/dL (0.7-1.3); GFR 59.7; POTASSIUM 3.2 mmol/L (3.5-5.1)
[2021-07-05 09:30] VITALS: BP 154/92
== END | disposition home or self-care (01) ==
LOC: ER 22:05
DX: E11.00 Type 2 diabetes mellitus with hyperosmolarity without nonketotic hyperglycemic-hyperosmolar coma (NKHHC) (principal); Z88.0 Allergy status to penicillin
CPT/HCPCS: 36415; 80048; 80053; 81001; 82803; 82947; 83690; 83735; 84100; 84484; 85025; 93005; 96361; 96374; 96375; 96376; 99285-25

== ENCOUNTER 2021-10-25 20:32 | Emergency (ER) | payer MEDICAID ==
[~2021-10-25] VITALS: Ht 182.9 cm; Wt 59.1 kg
[~2021-10-25 20:32] MED LIST changes: -ACETAMINOPHEN 500 MG TABLET PO ONE; -FAMOTIDINE 20 MG/2 ML VIAL IVP ONE; +INSU100V8 SQ; -IV NORMAL SALINE 100ML 100 ML ONE; -IV NORMAL SALINE 500ML 500 ML IV ONE; -IV RINGERS SOLUTION,LACTATED 1,000 ML IV ONE; -LIDO:MAALOX 1:1 20 ML SINGLE DOSE. ONE; -LIDO:MAALOX 1:1 20 ML SINGLE DOSE. PO ONE; -ONDANSETRON PF 4 MG/2 ML VIAL. IVP ONE; +OXYC1TAB22 PO
--- NOTE | 2021-10-25 20:47 | PHYS DOC ---
Past History Past Medical History: Cancer, Constipation, Diabetes, Renal Disease, Other Additional Past Medical Histor: bowel obstruction; right uteral cancer; abd hernia Past Surgical History: Cancer Surgery, Other Additional Past Surgical Histo: RIGHT KIDNEY REMOVAL, RIGHT HAND SURGERY Alcohol Use: None Drug Use: None General Adult HPI: HPI: Patient is a 51-year-old female who is here with his with multiple complaints. He reports that his blood pressure was elevated at home, it sounds like his systolic was in the 160s, diastolic was below 100. He has known hypert ension, takes carvedilol. He was recently informed by his physician to increase his carvedilol dosing, but he reports that it made him dizzy, so he stopped doing this. He does report having a bifrontal headache. He has had similar headaches in the past. He denies thunderclap headache symptoms. He denies vision disturbance, he does report mild photophobia, he is also had the same symptom with previous headaches. He denies neck pain or stiffness. He denies fall, head injury or syncope or near syncope. He denies numbness, tingling, focal motor weakness. He does have chronic, unchanged bilateral lower extremity neuropathy and lorc-ldg-gpsgyta sensation. He denies chest pain, dyspne or palpitations. He does report intermittent lightheadedness/dizziness. Denies symptoms of vertigo. He does report having mild nausea, without vomiting. About a month ago, he was admitted at [facility] for what sounds like hypoglycemia issues. He and his indicate that at the time he was admitted he was told that he might of had an old stroke. His reports that she has noticed increased confusion and him for a month. This is unchanged today. The patient does admit that he feels slightly confused. 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 This is unchanged today. He denies any associated GI symptoms such as vomiting or diarrhea. Review of Systems: Review of Systems: Constitutional: Denies fever or chills Eyes: Denies change in visual acuity, he does report mild photophobia with headache. HENT: Denies nasal congestion or sore throat Respiratory: Denies cough or shortness of breath Cardiovascular: Denies chest pain or edema GI: He denies abdominal pain. He does report mild nausea, no vomiting. No diarrhea or constipation. : He has a history of chronic urinary urgency, unchanged today. Denies gross hematuria or dysuria. Musculoskeletal: Denies back pain or joint pain Integument: Denies rash Neurologic: Reports having a headache, similar to previous. No thunderclap headache. Mild intermittent dizziness/lightheadedness. He denies vertigo, numbness, tingling, focal motor weakness. Denies syncope. Endocrine: Hyperglycemia Lymphatic: Denies swollen glands Psychiatric: Denies depression or anxiety Allergies: Allergies: Allergies Coded Allergies Type Severity Reaction Last Updated Verified Penicillins Allergy Intermediate 02/16/21 Yes Physical Exam: PE: Constitutional: Well developed, well nourished, no acute distress, non-toxic appearance. [] HENT: Normocephalic, atraumatic, oropharynx patent and clear. Mucous membranes are moist. TMs are clear bilaterally Eyes: PERRL, EOMI, conjunctiva normal, no discharge, no nystagmus. Sclera are anicteric. Neck: Normal range of motion, no tenderness, supple, no stridor. No meningismus. Cardiovascular:Heart rate regular rhythm, +2 radial and +2 posterior tibial pulses bilaterally Lungs & Thorax: Lungs are clear to auscultation bilaterally without rales, rhonchi or wheezes. Abdomen: Abdomen is soft, nondistended, nontender to palpation. No palpable pulsatile mass. No CVA tenderness. Well-healed appearing incision in the right lower quadrant. No CVA tenderness. No flank abdominal ecchymoses. Skin: Warm, dry, no erythema, no rash. No jaundice. Back: No tenderness, no CVA tenderness. [] Extremities: No tenderness, no cyanosis, no clubbing, ROM intact, no edema. No calf tenderness Neurologic: He is awake, alert, oriented x3. Cranial nerves II through XII grossly intact. 5 out of 5 motor strength all 4 extremities. No dysmetria. No pronator drift. No limb ataxia. No gait ataxia. Speech is clear and fluent. Sensation is grossly intact Psychologic: Affect somewhat flat, he is cooperative and pleasant. EKG: EKG: EKG is interpreted at 2120 Rhythm is sinus Rate is 71 bpm [place] is left LVH T wave inversion leads II, III, aVF, V2, V3, V4, V5, V6 No STEMI Radiology/Procedures: Radiology/Procedures: IMAGING REPORT Signed PATIENT: JAMEY LOPEZ ACCOUNT: [id number] : 1970 LOCATION: ER AGE: 51 SEX: M EXAM STATUS: REG ER ORD. PHYSICIAN: BETSEY MARTINEZ DO REASON: dizzy, headache PROCEDURE: CT HEAD WO CONTRAST Exam: CT head INDICATION: Dizzy, headache TECHNIQUE: Sequential axial images through the head were obtained without the administration of IV contrast. Exposure: One or more of the following in the visualized dose reduction techniques were utilized for this examination: 1. Automated exposure control 2. Adjustment of the MA and/or KV according to patient size 3. Use of iterative of reconstructive technique Comparisons: None FINDINGS: No focal parenchymal lesion or hemorrhage is identified. There is no midline shift or sulcal effacement. No acute vascular territory infarction is identified. Hernandez-white distinction is preserved. The ventricular system is within normal limits without compression hydrocephalus. The basal cisterns are well maintained. The visualized portions of the paranasal sinuses and mastoid air cells are well- pneumatized. No acute fractures. IMPRESSION: No acute intracranial abnormality. Electronically signed by: Marcelina Palacios MD (10/25/2021 9:44 PM) [facility] DICTATED AND SIGNED BY: MARCELINA PALACIOS MD DATE: 10/25/212140 CC: BETSEY MARTINEZ DO; GHAZALA LI MD ~ IMAGING REPORT Signed PATIENT: JAMEY LOPEZ ACCOUNT: [id number] : 1970 LOCATION: ER AGE: 51 SEX: M EXAM STATUS: REG ER ORD. PHYSICIAN: BETSEY MARTINEZ DO REASON: dizziness PROCEDURE: PORTABLE CHEST 1V Exam: Chest one view INDICATION: Dizziness TECHNIQUE: Frontal view of the chest Comparisons: 08/02/2021 FINDINGS: The cardiomediastinal silhouette and pulmonary vessels are within normal limits. The lung and pleural spaces are clear. IMPRESSION: No acute cardiopulmonary process. Electronically signed by: Marcelina Palacios MD (10/25/2021 10:01 PM) [facility] DI[facility]ATED AND SIGNED BY: MARCELINA PALACIOS MD DATE: 10/25/212200 CC: BETSEY MARTINEZ DO; GHAZALA LI MD ~ Heart Score: C/O Chest Pain: No Risk Factors: Risk Factors: DM, Current or recent (<one month) smoker, HTN, HLP, family history of CAD, obesity. Risk Scores: Score 0 - 3: 2.5% MACE over next 6 weeks - Discharge Home Score 4 - 6: 20.3% MACE over next 6 weeks - Admit for Clinical Observation Score 7 - 10: 72.7% MACE over next 6 weeks - Early Invasive Strategies Course & Med Decision Making: Course & Med Decision Making Pertinent Labs and Imaging studies reviewed. (See chart for details) The patient is given IV fluids, IV Toradol, IV Zofran, p.o. Tylenol. He reports that his headache feels better, but he does feel like he has posterior occipital pain now. He is given a dose of p.o. Flexeril. CT imaging is unremarkable. He has a nonfocal neurologic exam. EKG does appear to be abnormal, though he continues to deny any chest pain symptoms. Serial troponin are not indicative of acute ischemia, second troponin is actually lower. I have had multiple discussions with the patient and his regarding the findings, differential diagnosis and plan of care. The patient is comfortable to plan for discharge home. I strongly encouraged him to talk to his primary care physician about his blood pressure further. His blood pressure has been mildly elevated, diastolic continues to be under 100. His headache is improved. I explained that he may need to be on additional medications to more optimally control his blood pressure. Return precautions are given. He verbalizes understanding. Dragon Disclaimer: Andres Disclaimer: This electronic medical record was generated, in whole or in part, using a voice recognition dictation system. Departure Departure: Impression: Primary Impression: Headache Qualified Codes: R51.9 - Headache, unspecified Additional Impressions: Hypertension Qualified Codes: I10 - Essential (primary) hypertension Dizziness Disposition: HOME / SELF CARE / HOMELESS Condition: STABLE Referrals: GHAZALA LI MD (PCP) Patient Instructions: General Headache Without Cause, Hypertension, Tension Headache Additional Instructions: Continue taking your prescription blood pressure medications as directed. I recommend contacting your primary care doctor this week to discuss possible changes in medications or additional medications to better control your blood pressure. You may take [id number] Tylenol or ibuprofen as needed for headache pain. Use the muscle relaxer for severe pain or tension headache, only take this at night, this medication is sedating so do not use it while you have to be awake or alert, do not drive while taking this medication. Please return to the ER immediately for chest pain, shortness of breath, vomiting, dehydration, fall, head injury, more severe headache pain, focal weakness or any other concerns. Scripts Cyclobenzaprine Hcl (CYCLOBENZAPRINE HCL) 10 Mg Tablet 1 TAB PO BID for muscle spasm, #12 TAB Prov: BETSEY MARTINEZ DO 10/26/21 BETSEY MARTINEZ DO October 25, 2021 20:46
[2021-10-25] MEDS ORDERED: ONDANSETRON PF 4 MG/2 ML VIAL. IVP ONE (21:15)
[2021-10-25] MEDS ORDERED: KETOROLAC 15 MG/ML VIAL. IVP ONE (21:15)
[2021-10-25] MEDS ORDERED: IV NORMAL SALINE 1,000ML 1,000 ML IV ONE (21:15)
--- NOTE | 2021-10-25 21:47 | RAD ---
Exam: CT head INDICATION: Dizzy, headache TECHNIQUE: Sequential axial images through the head were obtained without the administration of IV co ntrast. Exposure: One or more of the following in the visualized dose reduction techniques were utilized for this examination: 1. Automated exposure control 2. Adjustment of the MA and/or KV according to patient size 3. Use of iterative of reconstructive technique Comparisons: None FINDINGS: No focal parenchymal lesion or hemorrhage is identified. There is no midline shift or sulcal effaceme nt. No acute vascular territory infarction is identified. Hernandez-white distinction is preserved. The ventricular system is within normal limits without compression hydrocephalus. The basal cisterns are well maintained. The visualized portions of the paranasal sinuses and mastoid air cells are well-pneumatized. No acute fractures. IMPRESSION: No acute intracranial abnormality. Electronically signed by: Marcelina Blount MD (10/25/2021 9:44 PM) [facility]
[2021-10-25 22:02] LABS: BASO % 1 % (0-3); EOS # 0.1 x10^3/uL (0.0-0.7); EOS % 2 % (0-3); HEMATOCRIT 33.6 % (39.0-53.0); HEMOGLOBIN 11.4 g/dL (13.0-17.5); LYMPH # 1.8 x10^3/uL (1.0-4.8); LYMPH % 37 % (24-48); MEAN CORPUSCULAR HEMOGLOBIN 32 pg (25-35); MEAN CORPUSCULAR HGB CONC 34 g/dL (31-37); MEAN CORPUSCULAR VOLUME 95 fL (79-100); MONO # 0.5 x10^3/uL (0.0-1.1); MONO % 10 % (0-9); NEUT # 2.4 x10^3uL (1.8-7.7); NEUT % 50 % (31-73); PLATELET COUNT 216 x10^3/uL (140-400); RED BLOOD COUNT 3.54 x10^6/uL (4.30-5.70); RED CELL DISTRIBUTION WIDTH 13.5 % (11.5-14.5); WHITE BLOOD COUNT 4.9 x10^3/uL (4.0-11.0)
--- NOTE | 2021-10-25 22:04 | RAD ---
Exam: Chest one view INDICATION: Dizziness TECHNIQUE: Frontal view of the chest Comparisons: 08/02/2021 FINDINGS: The cardiomediastinal silhouette and pulmonary vessels are within normal limits. The lung and pleural spaces are clear. IMPRESSION: No acute cardiopulmonary process. Electronically signed by: Marcelina Blount MD (10/25/2021 10:01 PM) [facility]
[2021-10-25 22:14] LABS: CALCIUM 9.2 mg/dL (8.5-10.1); CREATININE 1.4 mg/dL (0.7-1.3); GFR 64.6; POTASSIUM 3.1 mmol/L (3.5-5.1)
[2021-10-25 22:18] LABS: ACETAMIN 7.6 mcg/mL (10-30); ETHANOL < 10 mg/dL (0-10); SALIC 2.8 mg/dL (2.8-20.0)
[2021-10-25 22:21] LABS: ALBUMIN 2.9 g/dL (3.4-5.0); ALBUMIN/GLOBULIN RATIO 1.1 (1.0-1.7); MAGNESIUM 1.7 mg/dL (1.8-2.4); PHOSPHORUS 3.5 mg/dL (2.6-4.7); TOTAL BILIRUBIN 0.2 mg/dL (0.2-1.0); TOTAL PROTEIN 5.5 g/dL (6.4-8.2)
[2021-10-25] MEDS ORDERED: ACETAMINOPHEN 500 MG TABLET PO ONE (22:30)
[2021-10-25] MEDS ORDERED: POTASSIUM CHLORIDE 20 MEQ TABLET.ER. PO ONE (22:30)
[2021-10-25 22:55] LABS: BACTERIA,URINE 0 /HPF (0-FEW); CLARITY,URINE CLEAR; COLOR,URINE YELLOW; GLUCOSE,URINE 250 mg/dL (NEG); NITRITE,URINE NEG (NEG); RBC,URINE 0 /HPF (0-2); SQUAMOUS EPITHELIAL CELL,UR OCC /LPF; UROBILINOGEN,URINE 0.2 mg/dL (0.2 mg/dL); WBC,URINE OCC /HPF (0-4)
--- NOTE | 2021-10-26 00:39 | EKG ---
[address] [address] Test Date: 2021-10-25 Test Time: 21:18:09 Pat Name: JAMEY LOPEZ Department: Room: Gender: M Disability Manager: MAURICE : 1970 Requested By: BETSEY MARTINEZ Order Number: [id number] Reading MD: Measurements Intervals [place] Rate: 71 P: 52 SC: 158 QRS: -55 QRSD: 82 T: 238 QT: 484 QTc: 532 Interpretive Statements SINUS RHYTHM ABNORMAL LEFT AXIS DEVIATION LEFT ANTERIOR FASCICULAR BLOCK CONSIDER LEFT VENTRICULAR HYPERTROPHY QRS(T) CONTOUR ABNORMALITY CONSIDER ANTEROSEPTAL MYOCARDIAL DAMAGE T ABNORMALITY IN ANTERIOR LEADS LATERAL LEADS INFEROLATERAL LEADS PROLONGED QT ABNORMAL ECG RI6.02 No previous ECG available for comparison
[2021-10-26 00:40] VITALS: BP 154/101
[2021-10-26] MEDS ORDERED: CYCL10TA19 PO (00:40)
[2021-10-26] MEDS ORDERED: CYCLOBENZAPRINE 10 MG TABLET. PO ONE (00:45)
== END 2021-10-26 00:54 | disposition home or self-care (01) ==
LOC: ER 20:32
DX: I10 Essential (primary) hypertension (principal); R51.9 Headache, unspecified; R42 Dizziness and giddiness; E11.65 Type 2 diabetes mellitus with hyperglycemia; Z88.0 Allergy status to penicillin
CPT/HCPCS: 36415; 70450; 71045; 80053; 80329; 81001; 82140; 82550; 83690; 83735; 84100; 84443; 84484; 85025; 93005; 96361; 96374; 96375; 99285; G0480; J1885; J2405; J7030; 96372; 99284